=== PATIENT | female | born 1935 | race Caucasian/White ===

== ENCOUNTER 2017-06-10 10:34 | Inpatient (IN) | payer MEDICARE, BC ==
[2017-06-10] MEDS ORDERED: Morphine 4 MG/ML Syringe IVPUSH ONE (11:41)
--- NOTE | 2017-06-10 11:47 | EDM.PDOC ---
ED HPI GENERAL MEDICAL PROBLEM - General Chief Complaint: Back Pain or Injury Stated Complaint: Back Pain Time Seen by Provider: 06/10/17 11:15 Source of Information: Reports: Patient History Limitations: Reports: No Limitations - History of Present Illness INITIAL COMMENTS - FREE TEXT/NARRATIVE: Patient presents with pain all along her spine mostly in the lower back. This has been chronic for about a month and no recent or acute injury. She felt the pain coming up while she was walking out of her bedroom and fearing she would fall, sat down quickly on the floor, kind of slid to the floor along the door. She denies any pain or injury from this. She has been dealing with this pain with several visits to Dr. Zimmer over the past few weeks. He has diagnosed advanced arthritis of the spine with acute exacerbation. She has had SI joint injections and most recently completed a 10-day course of prednisone that she finished 5-6 days ago. She says that really seemed to help but is now worn off. Yesterday she rode with her several hours in the car to a dental appointment with him but felt okay last evening. During the night the pain increased significantly all along her back. She was given morphine 4 mg in the ambulance which reduced pain considerably to about 6/10 which is about her baseline recently. Back Pain Score (Numeric/FACES): 6 - Related Data Allergies Allergy/AdvReac Type Severity Reaction Status Date / Time donepezil HCl [From Aricept] Allergy Nausea and Verified 06/10/17 11:19 Vomiting midazolam HCl [From Versed] Allergy Seizure Verified 06/10/17 11:19 Sulfa (Sulfonamide Allergy Itching Verified 06/10/17 11:19 Antibiotics) tramadol Allergy Itching Verified 06/10/17 11:19 food additive or seasoning Allergy Intermediate Edema Uncoded 06/10/17 11:19 intrascalene injection Allergy Intermediate hard time Uncoded 06/10/17 11:19 waking up Home Meds: Home Meds Calcium Carbonate [Tums] 500 mg PO ASDIRECTED PRN 01/23/15 [History] Calcium Carbonate/Vitamin D3 [Calcium 600 + Vit D 400] 1 tab PO BEDTIME [History] Clobetasol [Clobetasol Propionate 0.05%] 1 applic TOP ASDIRECTED PRN 01/23/15 [ History] Estrogens, Conjugated [Premarin] 0.5 g VAG Q48H 01/23/15 [History] Aspirin [Halfprin] 81 mg PO BRK 11/14/15 [History] Celecoxib 200 mg PO DAILY PRN 11/14/15 [History] Cholecalciferol (Vitamin D3) [Vitamin D3] 2,000 unit PO DAILY 11/14/15 [History] Denosumab [Prolia] 60 mg SUBCUT ASDIRECTED 11/14/15 [History] Past Medical History HEENT History: Reports: Impaired Vision Cardiovascular 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, Syncope Gastrointestinal History: Reports: GERD Genitourinary History: Reports: None Musculoskeletal History: Reports: Osteoarthritis, Osteoporosis Neurological History: Reports: Vertigo - Infectious Disease History Infectious Disease History: Reports: Chicken Pox, Measles, Mumps - Past Surgical History Musculoskeletal Surgical History: Reports: Shoulder Surgery Social & Family History - Family History Family Medical History: Noncontributory - Tobacco Use Smoking Status *Q: Never Smoker Second Hand Smoke Exposure: No - Alcohol Use Days Per Week of Alcohol Use: 0 - Recreational Drug Use Recreational Drug Use: No ED ROS GENERAL - Review of Systems Review Of Systems: See Below Constitutional: Denies: Fever, Chills, Weakness HEENT: Denies: Throat Pain, Vision Change Respiratory: Denies: Shortness of Breath, Cough Cardiovascular: Denies: Chest Pain, Lightheadedness, Syncope GI/Abdominal: Denies: Nausea, Vomiting : Denies: Dysuria Musculoskeletal: Reports: Neck Pain, Back Pain Skin: Denies: Cyanosis, Jaundice, Mottled, Pallor, Diaphoresis Neurological: Denies: Confusion, Dizziness, Headache, Seizure, Syncope Psychiatric: Denies: Agitation, Anxiety, Confusion ED EXAM,LOWER BACK PAIN/INJURY - Physical Exam Exam: See Below Exam Limited By: No Limitations General Appearance: Alert, WD/WN, No Apparent Distress Eye Exam: Bilateral Eye: EOMI, Normal Inspection, PERRL Ears: Normal External Exam, Hearing Grossly Normal Nose: Normal Inspection, No Blood Throat/Mouth: Normal Lips, Normal Voice, No Airway Compromise Head: Atraumatic, Normocephalic Neck: Tender Midline (less than the lumbar spine though) Respiratory/Chest: No Respiratory Distress, Lungs Clear, Normal Breath Sounds, No Accessory Muscle Use Cardiovascular: Regular Rate, Rhythm, No Murmur GI/Abdominal: Normal Bowel Sounds, Soft, No Organomegaly, Tender (Upper quadrants and suprapubic) Back Exam: CVA Tenderness (L), CVA Tenderness (R), Paraspinal Tenderness, Vertebral Tenderness (all along the spine but especially lumbar; non specific) Neurological: Alert, Normal Mood/Affect, Normal Dorsiflexion, Normal Plantar Flexion, No Motor/Sensory Deficits, Oriented x 3, Abnormal Gait (very difficult to walk due to the pain) Psychiatric: Normal Affect, Normal Mood Skin Exam: Warm, Dry, Intact, Normal Color, No Rash Course - Vital Signs Last Recorded V/S: Last Vital Signs Temp 97.6 F 06/10/17 11:09 Pulse 72 06/10/17 11:09 Resp 18 06/10/17 11:09 BP 146/53 H 06/10/17 11:09 Pulse Ox 97 06/10/17 11:09 - Orders/Labs/Meds Orders: Active Orders 24 hr Category Date Time Status UA W/MICROSCOPIC [URIN] Stat Lab 06/10/17 11:32 Uncollected - Re-Assessments/Exams Free Text/Narrative Re-Assessment/Exam: 06/10/17 11:54 I reviewed the notes from Dr. Zimmer and the recent xray reports which show advanced arthritis without acute pathology. The pain is returning so another 4 mg of morphine is given. Free Text/Narrative Re-Assessment/Exam: 06/10/17 12:27 UA shows moderate amounts of leukocyte esterase with only a few bacteria and WBC 's. Will treat for UTI and send urine for culture. Patient is barely able to stand due to the back pain right now. I feel we have no option but to admit for treatment of both the pain and the UTI. I called Jeremi Mayorga NP and left information on his voicemail regarding this case and am waiting for his call back at this point. Discussed findings and treatment plan with patient, her and her son. 06/10/17 12:38 Discussed with Jeremi Topete who will discuss with Dr. Zimmer as he will be seeing her in the hospital. He wants a CRP added to her labs. Patient admitted in stable condition. Departure - Departure Time of Disposition: 12:26 Disposition: Admitted As Inpatient 66 Condition: Good Clinical Impression: UTI (urinary tract infection), uncomplicated, Acute exacerbation of chronic low back pain - Discharge Information Referrals: Anusha Nolan MD [Primary Care Provider] - - My Orders Last 24 Hours: My Active Orders 06/10/17 11:32 UA W/MICROSCOPIC [URIN] Stat - Assessment/Plan Last 24 Hours: My Active Orders 06/10/17 11:32 UA W/MICROSCOPIC [URIN] Stat
[2017-06-10] MEDS ORDERED: Ciprofloxacin in D5W 400 MG in Premix Bag 1 BAG IV ONE ×2 (12:25)
[2017-06-10 13:07] LABS: CHLORIDE,CL 112 mmol/L (98-115); SODIUM,NA 148 mmol/L (136-145)
[2017-06-10] MEDS ORDERED: Sodium Chloride 0.9% 100 ML IV SCH (15:15)
[2017-06-10] MEDS ORDERED: Fludrocortisone 0.1 MG Tab PO PRN (15:53)
[2017-06-10] MEDS ORDERED: Acetaminophen 650 MG Tab.ER PO PRN (15:53)
[2017-06-10] MEDS ORDERED: Clobetasol 0.05% Crm 15 GM Tube TOP PRN (15:53)
[2017-06-10] MEDS ORDERED: Ondansetron 4 MG/2 ML SDV IVPUSH PRN (16:32)
[2017-06-10] MEDS ORDERED: Acetaminophen/HYDROcodone 325-5 MG Tab PO PRN (16:32)
[2017-06-10] MEDS: Morphine 2 MG/ML Syringe IVPUSH PRN (17:00)
[2017-06-10] MEDS ORDERED: traMADol 50 MG Tab PO SCH (21:00)
[2017-06-10] MEDS: Aspirin 81 MG Tab.EC PO SCH (21:16)
[2017-06-10] MEDS: Simvastatin 20 MG Tab PO SCH (21:17)
[2017-06-10] MEDS: Calcium Citrate/Vitamin D3 315 MG-250 Unit Tab PO SCH (21:17)
[2017-06-10] MEDS: Cyclobenzaprine 10 MG Tab PO PRN (21:19)
[2017-06-11] MEDS: Celecoxib 100 MG Cap PO PRN (06:44)
[2017-06-11] MEDS: Cholecalciferol (Vitamin D3) 1,000 Unit Tab PO SCH (08:17)
--- NOTE | 2017-06-11 09:16 | PCM.HP ---
H&P History of Present Illness - General Date of Service: 06/11/17 Source of Information: Patient, EMS Notes Reviewed, Provider - History of Present Illness Initial Comments - Free Text/Narative: 82-year-old female was admitted through the ED with intractable back pain. Patient stated it all happened about one month ago when she got a new puppy and that puppy made her fall in her back. She denies having any back issues and never had pain and always has had a strong back. She states she has been falling at home quite frequently this past month. About 3 weeks ago she did complete a round of oral prednisone 30 mg a day for 2 days titrated dose. 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 She has had SI joint injections. She was given morphine in the ambulance and this did bring her back pain down to 6/10. She states her back pain is usually midline lower lumbar area however she does admit to the pain shooting up into her thoracic spine and into her neck. Yesterday she stated she had some numbness in her right arm. Denies saddle anesthesia, or any urinary/bowel incontinence. She does have some UA symptoms suggestive of urinary tract and symptoms and was treated in the ED however denies flank pain, fever or urinary frequency. Negative CRP Back Pain Score (Numeric/FACES): 8 Right Shoulder Pain Score (Numeric/FACES): 6 Neck Pain Score (Numeric/FACES): 6 - Related Data Allergies/Adverse Reactions: Allergies Allergy/AdvReac Type Severity Reaction Status Date / Time donepezil HCl [From Aricept] Allergy Nausea and Verified 06/10/17 13:10 Vomiting midazolam HCl [From Versed] Allergy Seizure Verified 06/10/17 13:10 Sulfa (Sulfonamide Allergy Itching Verified 06/10/17 13:10 Antibiotics) tramadol Allergy Itching Verified 06/10/17 13:10 food additive or seasoning Allergy Intermediate Edema Uncoded 06/10/17 13:10 intrascalene injection Allergy Intermediate hard time Uncoded 06/10/17 13:10 waking up Home Medications: Home Meds Calcium Carbonate [Tums] 500 mg PO ASDIRECTED PRN 01/23/15 [History] Calcium Carbonate/Vitamin D3 [Calcium 600 + Vit D 400] 1 tab PO BEDTIME [History] Clobetasol [Clobetasol Propionate 0.05%] 1 applic TOP ASDIRECTED PRN 01/23/15 [ History] Aspirin [Halfprin] 81 mg PO BEDTIME 11/14/15 [History] Celecoxib 200 mg PO DAILY PRN 11/14/15 [History] Cholecalciferol (Vitamin D3) [Vitamin D3] 2,000 unit PO DAILY 11/14/15 [History] Denosumab [Prolia] 60 mg SUBCUT ASDIRECTED 11/14/15 [History] Acetaminophen [Acetaminophen ER] 650 mg PO TID PRN 06/10/17 [History] Cyclobenzaprine [Flexeril] 5 mg PO BEDTIME PRN 06/10/17 [History] Estrogens, Conjugated [Premarin Vaginal Crm] 0.5 gm VAG Q48H PRN 06/10/17 [ History] Fludrocortisone [Florinef] 0.1 mg PO DAILY PRN 06/10/17 [History] Simvastatin [Zocor] 40 mg PO BEDTIME 06/10/17 [History] Past Medical History HEENT History: Reports: Impaired Vision Cardiovascular 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, Syncope Gastrointestinal History: Reports: GERD Genitourinary History: Reports: None Other Genitourinary History: dribbles 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: Musculoskeletal History: Reports: Osteoarthritis, Osteoporosis Other Musculoskeletal History: Osteopenia Neurological History: Reports: Vertigo - Infectious Disease History Infectious Disease History: Reports: Chicken Pox, Measles, Mumps - Past Surgical History Head Surgeries/Procedures: Reports: None Musculoskeletal Surgical History: Reports: Shoulder Surgery Social & Family History - Family History Family Medical History: Noncontributory - Tobacco Use Smoking Status *Q: Never Smoker Second Hand Smoke Exposure: No - Caffeine Use Caffeine Use: Reports: Coffee, Soda - Alcohol Use Days Per Week of Alcohol Use: 0 - Recreational Drug Use Recreational Drug Use: No H&P Review of Systems - Review of Systems: Review Of Systems: See Below General: Reports: Decreased Appetite, Weight Loss HEENT: Reports: No Symptoms Pulmonary: Reports: Cough. Denies: Shortness of Breath, Wheezing, Pleuritic Chest Pain Cardiovascular: Reports: Edema (slight swelling left leg. ) Gastrointestinal: Reports: Other (diarrhea often. ) Genitourinary: Reports: Other (on premarin for vaginal itching. ). Denies: Dysuria, Frequency, Hematuria, Retention, Flank Pain Musculoskeletal: Reports: Back Pain Skin: Reports: No Symptoms Psychiatric: Reports: No Symptoms Neurological: Reports: Difficulty Walking, Other (neg saddle anesthesia). Denies: Confusion, Dizziness, Headache, Numbness, Paresthesia Exam - Exam Exam: See Below - Vital Signs Vital Signs: Last Vital Signs Temp 97.9 F 06/11/17 06:44 Pulse 69 06/11/17 06:44 Resp 18 06/11/17 06:44 BP 110/71 06/11/17 06:44 Pulse Ox 97 06/11/17 06:44 Weight: 144 lb 3.2 oz - Exam Quality Assessment: No: Supplemental Oxygen General: Alert, Oriented, 4 HEENT: PERRLA, Hearing Intact, Mucosa Moist & [place], Nares Patent, Normal Nasal Septum, Posterior Pharynx Clear, Conjunctiva Clear, EOMI, EACs Clear, TMs Clear Neck: Supple, Trachea Midline, 2 Lungs: Clear to Auscultation, Normal Respiratory Effort Cardiovascular: Regular Rate, Regular Rhythm GI/Abdominal Exam: Normal Bowel Sounds, Soft, Non-Tender, No Organomegaly, No Distention, No Abnormal Bruit, No Mass, Pelvis Stable (Female) Exam: Deferred Back Exam: No: CVA Tenderness (L), CVA Tenderness (R) Extremities: No Pedal Edema Peripheral Pulses: 2+: Radial (R), Femoral (L) Skin: Warm, Dry, Intact Neurological: Cranial Nerves Intact Neuro Extensive - Mental Status: Alert, Oriented x3, Normal Mood/Affect, Normal Cognition, Other (Neg SLR, Neg dorsiflexion weakness. ) Neuro Extensive - Motor, Sensory, Reflexes: CN II-XII Intact, Normal Gait, Normal Reflexes Psychiatric: Alert, Normal Affect, Normal Mood - Patient Data Result Diagrams: 06/10/17 12:30 06/10/17 12:30 *Q Meaningful Use (ADM) - VTE *Q VTE Criteria *Q: - Stroke *Q Stroke Criteria *Q: - AMI *Q AMI Criteria *Q: Problem List Initiated/Reviewed/Updated: Yes Orders Last 24hrs: Active Orders 24 hr Category Date Time Status Consult to Grade Setter [CONS] Routine Cons 06/10/17 19:18 Active Acetaminophen [Tylenol Arthritis Pain] Med 06/10/17 15:53 Active 650 mg PO TID PRN Acetaminophen/HYDROcodone [[place] 325-5 MG] Med 06/10/17 16:32 Active 1 tab PO Q6H PRN Aspirin [Halfprin] Med 06/10/17 21:00 Active 81 mg PO BEDTIME Calcium Citrate/Vitamin D3 [Calcium Citrate + D] Med 06/10/17 21:00 Active 2 tab PO BEDTIME Celecoxib [CeleBREX] Med 06/10/17 15:53 Active 200 mg PO DAILY PRN Cholecalciferol (Vitamin D3) [Vitamin D3] Med 06/11/17 09:00 Active 2,000 units PO DAILY Clobetasol [Clobetasol Propionate 0.05%] Med 06/10/17 15:53 Active 0 gm TOP DAILY PRN Cyclobenzaprine [Flexeril] Med 06/10/17 15:53 Active 5 mg PO BEDTIME PRN Fludrocortisone [Florinef] Med 06/10/17 15:53 Active 0.1 mg PO DAILY PRN Morphine Med 06/10/17 16:03 Active 2 mg IVPUSH Q3H PRN Ondansetron [Zofran] Med 06/10/17 16:32 Active 4 mg IVPUSH Q6H PRN Simvastatin [Zocor] Med 06/10/17 21:00 Active 40 mg PO BEDTIME Sodium Chloride 0.9% [Normal Saline] 100 ml Med 06/10/17 15:15 Active IV ASDIRECTED Medication Orders Acetaminophen (Tylenol Arthritis Pain) 650 mg PO TID PRN PRN Reason: moderate pain Last Admin: 06/10/17 21:18 Dose: 650 mg Hydrocodone Bitart/Acetaminophen ([place] 325-5 Mg) 1 tab PO Q6H PRN PRN Reason: Pain Aspirin (Halfprin) 81 mg PO BEDTIME GRADY Last Admin: 06/10/17 21:16 Dose: 81 mg Calcium Citrate (Calcium Citrate + D) 2 tab PO BEDTIME GRADY Last Admin: 06/10/17 21:17 Dose: 2 tab Celecoxib (Celebrex) 200 mg PO DAILY PRN PRN Reason: Pain Last Admin: 06/11/17 06:44 Dose: 200 mg Cholecalciferol (Vitamin D3) 2,000 units PO DAILY GRADY Last Admin: 06/11/17 08:17 Dose: 2,000 units Clobetasol Propionate (Clobetasol Propionate 0.05%) 0 gm TOP DAILY PRN PRN Reason: Itching Cyclobenzaprine HCl (Flexeril) 5 mg PO BEDTIME PRN PRN Reason: muscle spasms Last Admin: 06/10/17 21:19 Dose: 5 mg Fludrocortisone Acetate (Florinef) 0.1 mg PO DAILY PRN PRN Reason: dizzy/vertigo Sodium Chloride (Normal Saline) 100 mls @ 20 mls/hr IV ASDIRECTED [facility] Last Admin: 06/10/17 15:20 Dose: 20 mls/hr Morphine Sulfate (Morphine) 2 mg IVPUSH Q3H PRN PRN Reason: back pain Last Admin: 06/10/17 17:00 Dose: 2 mg Ondansetron HCl (Zofran) 4 mg IVPUSH Q6H PRN PRN Reason: Nausea/Vomiting Last Admin: 06/10/17 16:40 Dose: 4 mg Simvastatin (Zocor) 40 mg PO BEDTIME [facility] Last Admin: 06/10/17 21:17 Dose: 40 mg Assessment/Plan Comment:: HISTORY OF PRESENT ILLNESS 82-year-old female was admitted through the ED with intractable back pain. Patient stated it all happened about one month ago when she got a new puppy and that puppy made her fall in her back. She denies having any back issues and never had pain and always has had a strong back. She states she has been falling at home quite frequently this past month. About 3 weeks ago she did complete a round of oral prednisone 30 mg a day for 2 days titrated dose. 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 She has had SI joint injections. She was given morphine in the ambulance and this did bring her back pain down to 6/10. She states her back pain is usually midline lower lumbar area however she does admit to the pain shooting up into her thoracic spine and into her neck. Yesterday she stated she had some numbness in her right arm. Denies saddle anesthesia, or any urinary/bowel incontinence. She does have some UA symptoms suggestive of urinary tract and symptoms and was treated in the ED however denies flank pain, fever or urinary frequency. Negative CRP CODE STATUS, Full Code. Diagnostics Lumbar spine; diffuse lumbar spondylosis, mild to moderate lower thoracic and throughout lumbar CT lumbar spine, spondylosis diffusely throughout the lumbar and lower thoracic spine most prominent at L5-S1, no significant central canal stenosis, moderate facet joint arthropathy, L5-S1, mild facet joint arthropathy lumbar spine, osteoarthritis no acute fracture or compression deformity. No cauda equina evidence. 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 Continue Celebrex, add PPI therapy, change Tylenol to 650 mg every 8 hours scheduled. Can take up to 4 g all sources of acetaminophen. Lidoderm patch to thoracic and NSAID cream to lumbar, limit Flexeril to 5 mg daily at bedtime as recent falling and relative contraindication on [place]ers Criteria. PT consultation to help improve mobility and physical function. Osteoarthritis, Tylenol will be changed to schedule. Add Lidoderm patch, PT consultation. Asymptomatic bacteriuria, no treatment needed. GI prophylaxis, on NSAIDs, add PPI Other chronic medical conditions Osteoporosis, on Prolia, compounding current medical condition, on calcium/ vitamin D, exacerbated by long-term fludrocortisone Hyperlipidemia, Loose stools, likely lactose intolerance, lactose free milk Atrophic vaginitis, Premarin Hyperlipidemia, on statin therapy Venous insufficiency, status post EVLT, Overall plan, medication adjustment, physical therapy consultation, limited morphine,
[2017-06-11] MEDS ORDERED: ESTROGENS CONJUGATED VAG PRN (10:29)
[2017-06-11] MEDS ORDERED: Lidocaine 5% 700 MG Patch TOP SCH ×2 (10:45→11:00)
[2017-06-11] MEDS: Acetaminophen 650 MG Tab.ER PO SCH ×2 (11:30→18:45)
[2017-06-11] MEDS: Omeprazole 20 MG Cap.CR PO SCH (11:32)
[2017-06-11] MEDS: Diclofenac Sodium 1% Gel 100 GM Tube TOP SCH ×2 (14:35→22:06)
[2017-06-11] MEDS: Bisacodyl 5 MG Tab PO PRN (14:51)
[2017-06-11] MEDS: Cyclobenzaprine 10 MG Tab PO PRN (22:07)
[2017-06-11] MEDS: Simvastatin 20 MG Tab PO SCH (22:08)
[2017-06-11] MEDS: Calcium Citrate/Vitamin D3 315 MG-250 Unit Tab PO SCH (22:08)
[2017-06-11] MEDS: Aspirin 81 MG Tab.EC PO SCH (22:08)
[2017-06-11] MEDS: Morphine 2 MG/ML Syringe IVPUSH PRN (22:58)
[2017-06-12] MEDS: Acetaminophen 650 MG Tab.ER PO SCH ×4 (04:18→21:18)
[2017-06-12] MEDS: Bisacodyl 5 MG Tab PO PRN (06:09)
[2017-06-12] MEDS: Celecoxib 100 MG Cap PO PRN (06:09)
[2017-06-12] MEDS: Morphine 2 MG/ML Syringe IVPUSH PRN (06:16)
[2017-06-12] MEDS ORDERED: Magnesium Hydroxide 400 MG/5 ML Susp 30 ML Cup PO PRN (07:27)
[2017-06-12] MEDS: Diclofenac Sodium 1% Gel 100 GM Tube TOP SCH ×3 (08:16→21:18)
[2017-06-12] MEDS: Lidocaine 5% 700 MG Patch TOP SCH (08:16)
[2017-06-12] MEDS: Cholecalciferol (Vitamin D3) 1,000 Unit Tab PO SCH (08:17)
[2017-06-12] MEDS: Omeprazole 20 MG Cap.CR PO SCH (08:17)
[2017-06-12] MEDS ORDERED: Sodium Chloride 0.9% 5 ML Syringe FLUSH PRN (09:41)
--- NOTE | 2017-06-12 09:47 | PCM.PN ---
- General Info Date of Service: 06/12/17 Functional Status: Reports: Pain Controlled, Tolerating Diet. Denies: New Symptoms - Review of Systems General: Reports: Weakness HEENT: Reports: No Symptoms Pulmonary: Reports: No Symptoms Cardiovascular: Reports: No Symptoms Gastrointestinal: Reports: Other (Cannot tolerate morphine). Denies: Difficulty Swallowing Genitourinary: Reports: No Symptoms Musculoskeletal: Reports: Back Pain (Back and thoracic pain much improved from yesterday.) Skin: Reports: No Symptoms Neurological: Denies: Confusion, Numbness, Paresthesia, Syncope, Tingling Psychiatric: Reports: No Symptoms - Patient Data Vitals - Most Recent: Last Vital Signs Temp 97.7 F 06/12/17 06:52 Pulse 66 06/12/17 06:52 Resp 20 06/12/17 06:52 BP 127/72 06/12/17 06:52 Pulse Ox 100 06/12/17 06:52 Weight - Most Recent: 144 lb 3.2 oz I&O - Last 24 Hours: Intake & Output 06/11/17 06/12/17 06/12/17 22:59 06:59 14:59 Intake Total 720 50 Output Total 400 Balance 320 50 Lauri Results Last 24 Hours: Microbiology 06/10/17 13:45 Aerobic Blood Culture - Preliminary Blood - Venous - Lab Draw NO GROWTH AFTER 1 DAY Anaerobic Blood Culture - Preliminary NO GROWTH AFTER 1 DAY Med Orders - Current: Current Medications Acetaminophen (Tylenol Arthritis Pain) 650 mg PO Q8H [facility] Last Admin: 06/12/17 04:18 Dose: Not Given Hydrocodone Bitart/Acetaminophen (Simpson 325-5 Mg) 1 tab PO Q6H PRN PRN Reason: Pain Aspirin (Halfprin) 81 mg PO BEDTIME [facility] Last Admin: 06/11/17 22:08 Dose: 81 mg Bisacodyl (Dulcolax) 5 - 10 mg PO DAILY PRN PRN Reason: Constipation Last Admin: 06/12/17 06:09 Dose: 10 mg Calcium Citrate (Calcium Citrate + D) 2 tab PO BEDTIME [facility] Last Admin: 06/11/17 22:08 Dose: 2 tab Celecoxib (Celebrex) 200 mg PO DAILY PRN PRN Reason: Pain Last Admin: 06/12/17 06:09 Dose: 200 mg Cholecalciferol (Vitamin D3) 2,000 units PO DAILY [facility] Last Admin: 06/12/17 08:17 Dose: 2,000 units Clobetasol Propionate (Clobetasol Propionate 0.05%) 0 gm TOP DAILY PRN PRN Reason: Itching Cyclobenzaprine HCl (Flexeril) 5 mg PO BEDTIME PRN PRN Reason: muscle spasms Last Admin: 06/11/17 22:07 Dose: 5 mg Diclofenac Sodium (Voltaren 1% Gel) 2 gm TOP TID [facility] Last Admin: 06/12/17 08:16 Dose: 1 applic Fludrocortisone Acetate (Florinef) 0.1 mg PO DAILY PRN PRN Reason: dizzy/vertigo Sodium Chloride (Normal Saline) 100 mls @ 20 mls/hr IV ASDIRECTED [facility] Last Admin: 06/10/17 15:20 Dose: 20 mls/hr Lidocaine (Lidoderm 5%) 700 mg TOP DAILY [facility] Last Admin: 06/12/17 08:16 Dose: 700 mg Magnesium Hydroxide (Milk Of Magnesia) 30 ml PO DAILY PRN PRN Reason: Constipation Miscellaneous Information (Remove Patch) 1 ea TRDERM BID [facility] Last Admin: 06/11/17 22:06 Dose: 1 ea Morphine Sulfate (Morphine) 2 mg IVPUSH Q3H PRN PRN Reason: back pain Last Admin: 06/12/17 06:16 Dose: 2 mg Non-Formulary Medication (Estrogens, Conjugated) 0.5 gm VAG Q48H PRN PRN Reason: Other Omeprazole (Omeprazole) 20 mg PO DAILY [facility] Last Admin: 06/12/17 08:17 Dose: 20 mg Ondansetron HCl (Zofran) 4 mg IVPUSH Q6H PRN PRN Reason: Nausea/Vomiting Last Admin: 06/10/17 16:40 Dose: 4 mg Simvastatin (Zocor) 40 mg PO BEDTIME [facility] Last Admin: 06/11/17 22:08 Dose: 40 mg Discontinued Medications Acetaminophen (Tylenol Arthritis Pain) 650 mg PO TID PRN PRN Reason: moderate pain Last Admin: 06/10/17 21:18 Dose: 650 mg Ciprofloxacin/Dextrose 400 mg/ (Premix) 200 mls @ 200 mls/hr IV ONETIME ONE Stop: 06/10/17 13:24 Last Admin: 06/10/17 15:19 Dose: 200 mls/hr Lidocaine (Lidoderm 5%) 700 mg TOP Q24H [facility] Lidocaine (Lidoderm 5%) 700 mg TOP Q24H [facility] Last Admin: 06/11/17 11:30 Dose: 700 mg Morphine Sulfate (Morphine) 4 mg IVPUSH ONETIME ONE Stop: 06/10/17 11:42 Last Admin: 06/10/17 11:47 Dose: 4 mg Tramadol HCl (Ultram) 50 mg PO TID [facility] - Exam Quality Assessment: No: Supplemental Oxygen General: Alert, Oriented Lungs: Clear to Auscultation, Normal Respiratory Effort Cardiovascular: Regular Rate, Regular Rhythm Psy/Mental Status: Alert, Normal Affect, Normal Mood - Problem List Review Problem List Initiated/Reviewed/Updated: Yes - My Orders Last 24 Hours: My Active Orders 06/11/17 10:29 Estrogens, Conjugated 0.5 gm VAG Q48H PRN 06/11/17 10:30 Acetaminophen [Tylenol Arthritis Pain] 650 mg PO Q8H 06/11/17 10:38 Resuscitation Status Routine 06/11/17 10:52 Consult to Physical Therapy [PT Evaluation and Treatment] [CONS] Routine 06/11/17 11:00 Omeprazole 20 mg PO DAILY 06/11/17 14:00 Diclofenac Sodium [Voltaren 1% Gel] 2 gm TOP TID 06/12/17 09:00 Lidocaine 5% [Lidoderm 5%] 700 mg TOP DAILY - Plan Plan:: HISTORY OF PRESENT ILLNESS 82-year-old female was admitted through the ED with intractable back pain. Patient stated it all happened about one month ago when she got a new puppy and that puppy made her fall in her back. She denies having any back issues and never had pain and always has had a strong back. She states she has been falling at home quite frequently this past month. About 3 weeks ago she did complete a round of oral prednisone 30 mg a day for 2 days titrated dose. 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 She has had SI joint injections. She was given morphine in the ambulance and this did bring her back pain down to 6/10. She states her back pain is usually midline lower lumbar area however she does admit to the pain shooting up into her thoracic spine and into her neck. Yesterday she stated she had some numbness in her right arm. Denies saddle anesthesia, or any urinary/bowel incontinence. She does have some UA symptoms suggestive of urinary tract and symptoms and was treated in the ED however denies flank pain, fever or urinary frequency. Negative CRP CODE STATUS, Full Code. Diagnostics Lumbar spine; diffuse lumbar spondylosis, mild to moderate lower thoracic and throughout lumbar CT lumbar spine, spondylosis diffusely throughout the lumbar and lower thoracic spine most prominent at L5-S1, no significant central canal stenosis, moderate facet joint arthropathy, L5-S1, mild facet joint arthropathy lumbar spine, osteoarthritis no acute fracture or compression deformity. No cauda equina evidence. Update, patient pain much more tolerable and she is more functional since started on scheduled CR Tylenol, nonsteroidal cream, and Lidoderm patch. 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 Change Celebrex to scheduled with food and PPI. Continue with scheduled CR Tylenol 650 every 8 hours. Can take up to 4 g all sources of acetaminophen. Lidoderm patch to thoracic and NSAID cream to lumbar, limit Flexeril to 5 mg daily at bedtime as recent falling and relative contraindication on Beers Criteria. PT consultation was placed however they have not seen the patient as of today, help improve mobility and physical function, plan is for discharge to home with home health care. Osteoarthritis, diffuse, Asymptomatic bacteriuria, no treatment GI prophylaxis, on NSAIDs, added PPI Other chronic medical conditions Osteoporosis, on Prolia, compounding current medical condition, on calcium/ vitamin D, exacerbated by long-term fludrocortisone Hyperlipidemia, on statin therapy Loose stools, likely lactose intolerance, lactose free milk Atrophic vaginitis, Premarin Venous insufficiency, status post EVLT, Disposition; will keep today to assess functional status and pain management results, change Celebrex to schedule, discontinue morphine/hydrocodone, physical therapy consultation, plan is for her to be discharged with home health.
[2017-06-12] MEDS ORDERED: Cyclobenzaprine 5 MG Tab PO PRN (21:00)
[2017-06-12] MEDS: Calcium Citrate/Vitamin D3 315 MG-250 Unit Tab PO SCH (21:18)
[2017-06-12] MEDS: Aspirin 81 MG Tab.EC PO SCH (21:18)
[2017-06-12] MEDS: Simvastatin 20 MG Tab PO SCH (21:19)
[2017-06-13 07:12] VITALS: BP 135/75
[2017-06-13] MEDS: Cholecalciferol (Vitamin D3) 1,000 Unit Tab PO SCH (09:00)
[2017-06-13] MEDS: Acetaminophen 650 MG Tab.ER PO SCH (09:00)
[2017-06-13] MEDS: Omeprazole 20 MG Cap.CR PO SCH (09:00)
[2017-06-13] MEDS ORDERED: Celecoxib 100 MG Cap PO SCH (09:00)
[2017-06-13] MEDS: Lidocaine 5% 700 MG Patch TOP SCH (09:01)
[2017-06-13] MEDS: Diclofenac Sodium 1% Gel 100 GM Tube TOP SCH (09:02)
--- NOTE | 2017-06-13 10:21 | PCM.DCSUM1 ---
Discharge Summary - Hospital Course Brief History: 82-year-old female was admitted through the ED with intractable back pain. Symptoms began one month ago when she got a new puppy and that puppy made her fall in her back. No recent history of having any back issues and never had pain and always has had a strong back. Recently she has been falling at home quite frequently during this past month. About 3 weeks ago she completed prednisone 30 mg a day for 2 days of titrating doses. 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 She has had SI joint injections. She was given morphine in the ambulance and this did improve her back pain to 6/10. She states her back pain is usually midline lower lumbar area however she does admit to the pain shooting up into her thoracic spine and into her neck. Yesterday she stated she had some numbness in her right arm. Denies saddle anesthesia, or any urinary/ bowel incontinence. She does have some UA symptoms suggestive of urinary tract and symptoms and was treated in the ED however denies flank pain, fever or urinary frequency. Negative CRP - Discharge Data Discharge Date: 06/13/17 Discharge Disposition: Home, W Home Health Agency 06 Condition: Good - Patient Summary/Data Complications: None Consults: Consultations 06/10/17 19:18 Consult to Tiler [CONS] Routine 06/11/17 10:52 Consult to Physical Therapy [PT Evaluation and Treatment] [CONS] Routine Hospital Course: Patient's hospital course went quite well. She did not have any adverse reactions or side effects to any medications and/or treatments. She never became hemodynamically unstable. Many medications were adjusted such as Tylenol was changed to Tylenol arthritis scheduled. Discontinued hydrocodone as this did make her slightly nauseated however a PPI was added with continued with Celebrex scheduled. She was given a Lidoderm patch to her thoracic area along with nonsteroidal cream to her lumbar which did seem to improve her functional status. She never had signs and symptoms of impingement. She was evaluated by physical therapy and has qualified for home health with home PT. She never had any bladder or bowel dysfunction. - Patient Instructions Diet: Regular Diet as Tolerated Activity: As Tolerated Showering/Bathing: May Shower Notify Provider of: Increased Pain, Nausea and/or Vomiting - Discharge Plan Prescriptions/Med Rec: Acetaminophen [Tylenol Arthritis Pain] 650 mg PO TID #90 tab.er Diclofenac Sodium [Voltaren 1% Gel] 2 gm TOP TID #2 tube Omeprazole 20 mg PO DAILY #30 cap.cr Home Medications: Home Meds Calcium Carbonate [Tums] 500 mg PO ASDIRECTED PRN 01/23/15 [History] Calcium Carbonate/Vitamin D3 [Calcium 600 + Vit D 400] 1 tab PO BEDTIME [History] Clobetasol [Temovate 0.05% Crm] 1 applic TOP ASDIRECTED PRN 01/23/15 [History] Aspirin [Halfprin] 81 mg PO BEDTIME 11/14/15 [History] Cholecalciferol (Vitamin D3) [Vitamin D3] 2,000 unit PO DAILY 11/14/15 [History] Denosumab [Prolia] 60 mg SUBCUT ASDIRECTED 11/14/15 [History] Cyclobenzaprine [Flexeril] 5 mg PO BEDTIME PRN 06/10/17 [History] Estrogens, Conjugated [Premarin Vaginal Crm] 0.5 gm VAG Q48H PRN 06/10/17 [ History] Fludrocortisone [Florinef] 0.1 mg PO DAILY PRN 06/10/17 [History] Simvastatin [Zocor] 40 mg PO BEDTIME 06/10/17 [History] Acetaminophen [Tylenol Arthritis Pain] 650 mg PO TID #90 tab.er 06/13/17 [Rx] Celecoxib 200 mg PO DAILY #30 06/13/17 [Rx] Diclofenac Sodium [Voltaren 1% Gel] 2 gm TOP TID #2 tube 06/13/17 [Rx] Omeprazole 20 mg PO DAILY #30 cap.cr 06/13/17 [Rx] Forms: ED Department Discharge Referrals: [facility] [Outside] - Discharge Summary/Plan Comment DC Time >30 min.: Yes Discharge Summary/Plan Comment: Discharge diagnoses Degenerative joint disease, 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 Please assist patient in developing in home therapy for pain control in relation to back pain, recent falls in the home setting and to establish strength and endurance for home safety. Patient is homebound due to limited decreased strength/endurance as a result of recent back pain exacerbation and falls within the home setting. She also has an unsteady gait. Patient has been scheduled for a facet joint injection on June 19 at the [facility] in [place]. - General Info Date of Service: 06/13/17 - Review of Systems General: Denies: Fever, Chills HEENT: Reports: Other (Complains of ears being itchy when wearing hearing aids for too long) Pulmonary: Denies: Shortness of Breath Cardiovascular: Denies: Chest Pain Gastrointestinal: Reports: Other (Chronic loose stools) Musculoskeletal: Reports: Back Pain. Denies: Leg Pain Neurological: Reports: Gait Disturbance (Uses a walker for ambulation) - Patient Data Vitals - Most Recent: Last Vital Signs Temp 97.9 F 06/13/17 07:00 Pulse 81 06/13/17 07:00 Resp 20 06/13/17 07:00 BP 135/75 06/13/17 07:00 Pulse Ox 96 06/13/17 07:00 Weight - Most Recent: 144 lb 3.2 oz I&O - Last 24 hours: Intake & Output 06/12/17 06/13/17 06/13/17 22:59 06:59 14:59 Intake Total 880 50 Output Total 800 300 Balance 80 -250 CHARLY Results - Last 24 hrs: Microbiology 06/10/17 13:45 Aerobic Blood Culture - Preliminary Blood - Venous - Lab Draw NO GROWTH AFTER 2 DAYS Anaerobic Blood Culture - Preliminary NO GROWTH AFTER 2 DAYS Med Orders - Current: Current Medications Acetaminophen (Tylenol Arthritis Pain) 650 mg PO TID [facility] Last Admin: 06/13/17 09:00 Dose: 650 mg Hydrocodone Bitart/Acetaminophen (Moro 325-5 Mg) 1 tab PO Q6H PRN PRN Reason: Pain Aspirin (Halfprin) 81 mg PO BEDTIME [facility] Last Admin: 06/12/17 21:18 Dose: 81 mg Bisacodyl (Dulcolax) 5 - 10 mg PO DAILY PRN PRN Reason: Constipation Last Admin: 06/12/17 06:09 Dose: 10 mg Calcium Citrate (Calcium Citrate + D) 2 tab PO BEDTIME [facility] Last Admin: 06/12/17 21:18 Dose: 2 tab Celecoxib (Celebrex) 200 mg PO DAILY [facility] Last Admin: 06/13/17 09:01 Dose: 200 mg Cholecalciferol (Vitamin D3) 2,000 units PO DAILY [facility] Last Admin: 06/13/17 09:00 Dose: 2,000 units Clobetasol Propionate (Clobetasol Propionate 0.05%) 0 gm TOP DAILY PRN PRN Reason: Itching Cyclobenzaprine HCl (Flexeril) 5 mg PO BEDTIME PRN PRN Reason: muscle spasms Last Admin: 06/12/17 21:21 Dose: 5 mg Diclofenac Sodium (Voltaren 1% Gel) 2 gm TOP TID [facility] Last Admin: 06/13/17 09:02 Dose: 1 applic Fludrocortisone Acetate (Florinef) 0.1 mg PO DAILY PRN PRN Reason: dizzy/vertigo Lidocaine (Lidoderm 5%) 700 mg TOP DAILY [facility] Last Admin: 06/13/17 09:01 Dose: 700 mg Magnesium Hydroxide (Milk Of Magnesia) 30 ml PO DAILY PRN PRN Reason: Constipation Miscellaneous Information (Remove Patch) 1 ea TRDERM BEDTIME [facility] Last Admin: 06/12/17 21:17 Dose: 1 ea Omeprazole (Omeprazole) 20 mg PO DAILY [facility] Last Admin: 06/13/17 09:00 Dose: 20 mg Ondansetron HCl (Zofran) 4 mg IVPUSH Q6H PRN PRN Reason: Nausea/Vomiting Last Admin: 06/10/17 16:40 Dose: 4 mg Simvastatin (Zocor) 40 mg PO BEDTIME [facility] Last Admin: 06/12/17 21:19 Dose: 40 mg Sodium Chloride (Syrex Flush) 5 ml FLUSH Q8HR PRN PRN Reason: Keep Vein Open Discontinued Medications Acetaminophen (Tylenol Arthritis Pain) 650 mg PO TID PRN PRN Reason: moderate pain Last Admin: 06/10/17 21:18 Dose: 650 mg Acetaminophen (Tylenol Arthritis Pain) 650 mg PO Q8H [facility] Last Admin: 06/12/17 04:18 Dose: Not Given Celecoxib (Celebrex) 200 mg PO DAILY PRN PRN Reason: Pain Last Admin: 06/12/17 06:09 Dose: 200 mg Cyclobenzaprine HCl (Flexeril) 5 mg PO BEDTIME PRN PRN Reason: muscle spasms Last Admin: 06/11/17 22:07 Dose: 5 mg Ciprofloxacin/Dextrose 400 mg/ (Premix) 200 mls @ 200 mls/hr IV ONETIME ONE Stop: 06/10/17 13:24 Last Admin: 06/10/17 15:19 Dose: 200 mls/hr Sodium Chloride (Normal Saline) 100 mls @ 20 mls/hr IV ASDIRECTED ON [facility] Last Admin: 06/10/17 15:20 Dose: 20 mls/hr Lidocaine (Lidoderm 5%) 700 mg TOP Q24H [facility] Lidocaine (Lidoderm 5%) 700 mg TOP Q24H [facility] Last Admin: 06/11/17 11:30 Dose: 700 mg Miscellaneous Information (Remove Patch) 1 ea TRDERM BID [facility] Last Admin: 06/12/17 09:52 Dose: Not Given Morphine Sulfate (Morphine) 4 mg IVPUSH ONETIME ONE Stop: 06/10/17 11:42 Last Admin: 06/10/17 11:47 Dose: 4 mg Morphine Sulfate (Morphine) 2 mg IVPUSH Q3H PRN PRN Reason: back pain Last Admin: 06/12/17 06:16 Dose: 2 mg Tramadol HCl (Ultram) 50 mg PO TID ON [facility] OF [facility] - Exam General: Reports: Alert, Oriented Lungs: Reports: Clear to Auscultation, Normal Respiratory Effort Cardiovascular: Reports: Regular Rate, Regular Rhythm Extremities: No: No Pedal Edema Neurological: Reports: Other (SLR slightly positive right side. Negative dorsiflexion weakness.) *Q Meaningful Use (DIS) - VTE *Q VTE Criteria *Q: - Stroke *Q Stroke Criteria *Q: - AMI *Q AMI Criteria *Q:
== END 2017-06-13 13:10 | disposition home health service (06) | DRG 552 ==
LOC: KA.ED 10:34 → KA.MS 12:45
PROVIDERS: ADMIT Physician Assistant Surgical; ATTEND Family Medicine
DX: M54.9 Dorsalgia, unspecified (principal); N39.0 Urinary tract infection, site not specified; M47.9 Spondylosis, unspecified; R82.71 Bacteriuria; E78.5 Hyperlipidemia, unspecified; N95.2 Postmenopausal atrophic vaginitis; I87.2 Venous insufficiency (chronic) (peripheral); Z91.81 History of falling; Z79.899 Other long term (current) drug therapy; Z79.82 Long term (current) use of aspirin; Z88.2 Allergy status to sulfonamides; Z88.8 Allergy status to other drugs, medicaments and biological substances; Z95.0 Presence of cardiac pacemaker
CPT/HCPCS: 36415; 80048; 81001; 85025; 85651; 86140; 87040; 87086; 96374; 99284; 99285; J2270; 72100; 72131; 97162-GP; A9270-GY; J0744; J2405; J7050

== ENCOUNTER 2017-07-01 09:51 | Day surgery (SDC) | payer MEDICARE, BC ==
[2017-07-01] MEDS ORDERED: Gatifloxacin 0.5% Ophth Soln 2.5 ML Bot EYERT SCH (09:55)
[2017-07-01] MEDS ORDERED: Sodium Chloride 0.9% 5 ML Syringe FLUSH PRN (09:55)
[2017-07-01] MEDS ORDERED: Lactated Ringers 1,000 ML IV SCH (09:55)
[2017-07-01] MEDS: Phenylephrine 10% Ophth Soln 5 ML Bot EYERT SCH ×3 (10:20→11:06)
[2017-07-01] MEDS: Cyclopentolate 1% Opth Soln 2 ML Bottle EYERT SCH ×3 (10:38→11:16)
[2017-07-01] MEDS ORDERED: Balanced Salt Solution Plus Ophth Irrig 500 ML Bottle IOCULAR ONE (12:48)
[2017-07-01] MEDS ORDERED: Water For Irrigation,Sterile 1,500 ML Container IRR ONE (12:48)
[2017-07-01] MEDS ORDERED: Balanced Salt Solution Ophth Irrig 15 ML Bottle EYERT ONE (12:48)
[2017-07-01] MEDS ORDERED: Tetracaine 0.5% 2 ML Bottle EYEBOTH ONE (12:49)
[2017-07-01] MEDS ORDERED: Carbachol 0.01% Intraocular 1.5 ML Vial EYERT ONE (12:49)
[2017-07-01] MEDS ORDERED: EPINEPHrine 1 MG/ML SDV ONE (12:49)
[2017-07-01] MEDS ORDERED: Lidocaine 1% 10 ML MDV INJECT ONE (12:50)
[2017-07-01] MEDS ORDERED: Lidocaine 2% with EPINEPHrine 1:100,000 20 ML MDV INJECT ONE (12:50)
[2017-07-01] MEDS ORDERED: Dexamethasone/Neomycin/Polymyxin B Ophth Oint 3.5 GM Tube EYERT ONE (12:50)
[2017-07-01] MEDS ORDERED: Hyaluronate Sodium 1% 0.85 ML Syringe IOCULAR ONE (12:51)
[2017-07-01 13:20] VITALS: BP 156/79
--- NOTE | 2017-07-02 09:51 | OR ---
DATE OF SURGERY: 07/01/2017 SURGEON: Kirby Hill MD PREOPERATIVE DIAGNOSIS: Cataract, right eye. POSTOPERATIVE DIAGNOSIS: Cataract, right eye. OPERATION PERFORMED: Phacoemulsification with posterior chamber lens insertion, right eye. FINDINGS: The patient was taken to the operating room where appropriate anesthesia, sedation and monitoring were provided. A retrobulbar block was given on the right side. The eye was massaged and was found to be appropriately soft. The eye and eyelids were then prepped and draped in the usual sterile manner. A lid speculum was placed. A micro sharp blade was used to enter the anterior chamber inside the limbus superior-temporally. Xylocaine was irrigated into the eye at this site. Healon was irrigated into the eye through this site. Then using a 2.85 mm corneal blade an entry was made into the anterior chamber just inside the limbus temporally. Healon was again irrigated into the eye. Then using a cystitome, the anterior capsulorrhexis was created. The lens nucleus was hydrodissected using a 27 gauge cannula and balanced salt solution. The phacoemulsification unit was introduced through the temporal site and the Armaan spatula through the superior temporal site. In so doing, the lens nucleus was phacoemulsified. The cortical fragments of the lens were removed using the irrigation aspiration unit. The posterior capsule was polished. Healon was irrigated into the eye. The posterior chamber lens was inserted and rotated into position inside the capsular bag. The Healon was irrigated out of the eye. Miostat was irrigated into the eye and the pupil rounded nicely. A single interrupted 10-0 Nylon suture was placed through the temporal corneal incision site. Balanced salt solution was irrigated into the eye. The wound was tested and found to be tight. Maxitrol ointment was placed into the patient's right eye. The eyelids were closed and an eye patch and mitchell shield were placed. The patient left the operating room in good condition. /[id number]/MODL
== END 2017-07-01 13:49 | disposition home or self-care (01) ==
LOC: KA.SDS 09:51
PROVIDERS: ATTEND Ophthalmology
DX: H53.8 Other visual disturbances (principal); E78.2 Mixed hyperlipidemia; Z95.1 Presence of aortocoronary bypass graft; Z90.49 Acquired absence of other specified parts of digestive tract; Z98.890 Other specified postprocedural states; Z79.899 Other long term (current) drug therapy; Z79.82 Long term (current) use of aspirin; Z88.8 Allergy status to other drugs, medicaments and biological substances; Z88.2 Allergy status to sulfonamides
CPT/HCPCS: 66984; A9270; J0171; J7120; 00142; V2632

== ENCOUNTER 2017-08-05 08:54 | Day surgery (SDC) | payer MEDICARE, BC ==
[2017-08-05] MEDS ORDERED: Lactated Ringers 1,000 ML IV SCH (09:00)
[2017-08-05] MEDS ORDERED: Sodium Chloride 0.9% 5 ML Syringe FLUSH PRN (09:00)
[2017-08-05] MEDS ORDERED: Gatifloxacin 0.5% Ophth Soln 2.5 ML Bot EYELF SCH (09:00)
[2017-08-05] MEDS: Phenylephrine 10% Ophth Soln 5 ML Bot EYELF SCH ×3 (09:10→09:35)
[2017-08-05] MEDS: Cyclopentolate 1% Opth Soln 2 ML Bottle EYELF SCH ×3 (09:15→09:40)
[2017-08-05] MEDS ORDERED: Water For Irrigation,Sterile 1,500 ML Container IRR ONE (10:50)
[2017-08-05] MEDS ORDERED: EPINEPHrine 1 MG/ML SDV ONE (10:51)
[2017-08-05] MEDS ORDERED: Balanced Salt Solution Ophth Irrig 15 ML Bottle EYELF ONE (10:51)
[2017-08-05] MEDS ORDERED: Carbachol 0.01% Intraocular 1.5 ML Vial EYELF ONE (10:51)
[2017-08-05] MEDS ORDERED: Balanced Salt Solution Plus Ophth Irrig 500 ML Bottle IOCULAR ONE (10:51)
[2017-08-05] MEDS ORDERED: Lidocaine 2% with EPINEPHrine 1:100,000 20 ML MDV INJECT ONE (10:52)
[2017-08-05] MEDS ORDERED: Dexamethasone/Neomycin/Polymyxin B Ophth Oint 3.5 GM Tube EYELF ONE (10:52)
[2017-08-05] MEDS ORDERED: Lidocaine 1% 10 ML MDV INFILT ONE (10:52)
[2017-08-05] MEDS ORDERED: Hyaluronate Sodium 1% 0.85 ML Syringe IOCULAR ONE (10:53)
[2017-08-05 12:01] VITALS: BP 160/62
--- NOTE | 2017-08-06 08:24 | OR ---
DATE OF SURGERY: 08/05/2017 SURGEON: Kirby Hill MD PREOPERATIVE DIAGNOSIS: Cataract, left eye. POSTOPERATIVE DIAGNOSIS: Cataract, left eye. OPERATION PERFORMED: Phacoemulsification with posterior chamber lens insertion, left eye. FINDINGS: The patient was taken to the operating room where appropriate anesthesia, sedation and monitoring were provided. A retrobulbar block was given on the left side. The eye was massaged and was found to be appropriately soft. The eye and eyelids were then prepped and draped in the usual sterile manner. A lid speculum was placed. A micro sharp blade was used to enter the anterior chamber inside the limbus inferior-temporally. Xylocaine was irrigated into the eye at this site. Healon was irrigated into the eye through this site. Then using a 2.85 mm corneal blade an entry was made into the anterior chamber just inside the limbus temporally. Healon was again irrigated into the eye. Then using a cystitome, the anterior capsulorrhexis was created. The lens nucleus was hydrodissected using a 27 gauge cannula and balanced salt solution. The phacoemulsification unit was introduced through the temporal site and the Armaan spatula through the inferior temporal site. In so doing, the lens nucleus was phacoemulsified. The cortical fragments of the lens were removed using the irrigation aspiration unit. The posterior capsule was polished. Healon was irrigated into the eye. The posterior chamber lens was inserted and rotated into position inside the capsular bag. The Healon was irrigated out of the eye. Miostat was irrigated into the eye and the pupil rounded nicely. A single interrupted 10-0 Nylon suture was placed through the temporal corneal incision site. Balanced salt solution was irrigated into the eye. The wound was tested and found to be tight. Maxitrol ointment was placed into the patient's left eye. The eyelids were closed and an eye patch and mitchell shield were placed. The patient left the operating room in good condition. /[id number]/MODL
== END 2017-08-05 11:45 | disposition home or self-care (01) ==
LOC: KA.SDS 08:54
PROVIDERS: ATTEND Ophthalmology
DX: H25.812 Combined forms of age-related cataract, left eye (principal); K21.9 Gastro-esophageal reflux disease without esophagitis; F17.210 Nicotine dependence, cigarettes, uncomplicated; I49.5 Sick sinus syndrome; H81.09 Meniere's disease, unspecified ear; H81.10 Benign paroxysmal vertigo, unspecified ear; G89.29 Other chronic pain; M54.5 Low back pain; M81.0 Age-related osteoporosis without current pathological fracture; Z79.899 Other long term (current) drug therapy; Z79.82 Long term (current) use of aspirin; Z88.5 Allergy status to narcotic agent; Z88.2 Allergy status to sulfonamides; Z88.8 Allergy status to other drugs, medicaments and biological substances; Z95.5 Presence of coronary angioplasty implant and graft; Z95.0 Presence of cardiac pacemaker; Z98.890 Other specified postprocedural states
CPT/HCPCS: 00142; 66984; A9270; J0171; J7120; V2632

== ENCOUNTER 2017-09-20 15:28 | Emergency (ER) | payer MEDICARE, BC ==
[2017-09-20 15:44] VITALS: BP 136/64
--- NOTE | 2017-09-20 15:59 | EDM.PDOC ---
ED HPI GENERAL MEDICAL PROBLEM - General Chief Complaint: General Stated Complaint: RIGHT SIDED RIB PAIN Time Seen by Provider: 09/20/17 15:30 Source of Information: Reports: Patient History Limitations: Reports: No Limitations - History of Present Illness INITIAL COMMENTS - FREE TEXT/NARRATIVE: 82 YO WF presents to ER with right sided posterior rib pain from a fall 3 days ago. Pt reports she was walking up her stairs and tripped forward landing on her right side. Pt states she was doing fine with her pain and breathing until last night when it became more severe. Pt denies any chest pain or difficulty breathing at this time. Pt denies any head injury or neck pain. Pt denies any loss of consciousness from her fall Onset Date: 09/18/17 Duration: Day(s): Location: Reports: Chest Quality: Reports: Ache Severity: Mild Improves with: Reports: Rest Worsens with: Reports: Movement Associated Symptoms: Reports: Shortness of Breath. Denies: Chest Pain, Cough, cough w sputum, Diaphoresis, Fever/Chills, Nausea/Vomiting, Syncope, Weakness - Related Data Allergies Allergy/AdvReac Type Severity Reaction Status Date / Time donepezil HCl [From Aricept] Allergy Nausea and Verified 08/05/17 09:22 Vomiting midazolam HCl [From Versed] Allergy Seizure Verified 08/05/17 09:22 Sulfa (Sulfonamide Allergy Itching Verified 08/05/17 09:22 Antibiotics) tramadol Allergy Itching Verified 08/05/17 09:22 food additive or seasoning Allergy Intermediate Edema Uncoded 07/01/17 10:16 intrascalene injection Allergy Intermediate hard time Uncoded 07/01/17 10:16 waking up Home Meds: Home Meds Calcium Carbonate [Tums] 500 mg PO ASDIRECTED PRN 01/23/15 [History] Calcium Carbonate/Vitamin D3 [Calcium 600 + Vit D 400] 1 tab PO BEDTIME [History] Clobetasol [Temovate 0.05% Crm] 1 applic TOP ASDIRECTED PRN 01/23/15 [History] Aspirin [Halfprin] 81 mg PO BEDTIME 11/14/15 [History] Cholecalciferol (Vitamin D3) [Vitamin D3] 3,000 unit PO DAILY 11/14/15 [History] Estrogens, Conjugated [Premarin Vaginal Crm] 0.5 gm VAG Q48H PRN 06/10/17 [ History] Simvastatin [Zocor] 40 mg PO BEDTIME 06/10/17 [History] Acetaminophen [Tylenol Arthritis Pain] 650 mg PO TID #90 tab.er 06/13/17 [Rx] Celecoxib 200 mg PO DAILY #30 06/13/17 [Rx] Diclofenac Sodium [Voltaren 1% Gel] 2 gm TOP TID #2 tube 06/13/17 [Rx] Omeprazole 20 mg PO DAILY #30 cap.cr 06/13/17 [Rx] Nystatin/Triamcinolone Crm [Mycolog Crm] 15 gm TOP BID PRN 06/30/17 [History] Hydrocodone/Acetaminophen [Hydrocodon-Acetaminophen 5-325] 1 each PO Q6HR PRN # 10 tablet 09/20/17 [Rx] Past Medical History HEENT History: Reports: Cataract, Impaired Vision Cardiovascular 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, Syncope Gastrointestinal History: Reports: GERD Genitourinary History: Reports: None Other Genitourinary History: dribbles [employer]ATE History: Reports: Musculoskeletal History: Reports: Arthritis, Osteoarthritis, Osteoporosis Other Musculoskeletal History: Osteopenia, lumbar spinalosis Neurological History: Reports: Vertigo Hematologic History: Reports: Blood Transfusion(s) - Infectious Disease History Infectious Disease History: Reports: Chicken Pox, Measles, Mumps - Past Surgical History Head Surgeries/Procedures: Reports: None HEENT Surgical History: Reports: Cataract Surgery Cardiovascular Surgical History: Reports: None GI Surgical History: Reports: None Female Surgical History: Reports: None Neurological Surgical History: Reports: Other (See Below) Other Neurological Surgeries/Procedures: Coritisone injection to lumbar. Musculoskeletal Surgical History: Reports: Shoulder Surgery Social & Family History - Family History Family Medical History: Noncontributory - Tobacco Use Smoking Status *Q: Never Smoker Second Hand Smoke Exposure: No - Caffeine Use Caffeine Use: Reports: Coffee, Soda - Alcohol Use Days Per Week of Alcohol Use: 0 - Recreational Drug Use Recreational Drug Use: No ED ROS GENERAL - Review of Systems Review Of Systems: See Below Constitutional: Reports: No Symptoms HEENT: Reports: No Symptoms Respiratory: Reports: No Symptoms Cardiovascular: Reports: No Symptoms Endocrine: Reports: No Symptoms GI/Abdominal: Reports: No Symptoms : Reports: No Symptoms Musculoskeletal: Reports: No Symptoms Skin: Reports: No Symptoms Neurological: Reports: No Symptoms Psychiatric: Reports: No Symptoms Hematologic/Lymphatic: Reports: No Symptoms Immunologic: Reports: No Symptoms ED EXAM, GENERAL - Physical Exam Exam: See Below Exam Limited By: No Limitations General Appearance: Alert, WD/WN, No Apparent Distress Throat/Mouth: Normal Inspection, Normal Lips, Normal Teeth, Normal Gums, Normal Oropharynx, Normal Voice, No Airway Compromise Head: Atraumatic, Normocephalic Neck: Normal Inspection, Supple, Non-Tender, Full Range of Motion Respiratory/Chest: No Respiratory Distress, Lungs Clear, Normal Breath Sounds, No Accessory Muscle Use, Chest Non-Tender Cardiovascular: Normal Peripheral Pulses, Regular Rate, Rhythm, No Edema, No Gallop, No JVD, No Murmur, No Rub GI/Abdominal: Normal Bowel Sounds, Soft, Non-Tender, No Organomegaly, No Distention, No Abnormal Bruit, No Mass Back Exam: Normal Inspection, Full Range of Motion, CVA Tenderness (R) Extremities: Normal Inspection, Normal Range of Motion, Non-Tender, Normal Capillary Refill, No Pedal Edema Neurological: Alert, Oriented, CN II-XII Intact, Normal Cognition, Normal Gait, Normal Reflexes, No Motor/Sensory Deficits Psychiatric: Normal Affect, Normal Mood Skin Exam: Warm, Dry, Intact, Normal Color, No Rash Lymphatic: No Adenopathy Course - Vital Signs Last Recorded V/S: Last Vital Signs Temp 36.9 C 09/20/17 15:42 Pulse 89 09/20/17 15:42 Resp 16 09/20/17 15:42 BP 136/64 09/20/17 15:42 Pulse Ox 99 09/20/17 15:42 - Orders/Labs/Meds Orders: Active Orders 24 hr Category Date Time Status Ribs 2V w Chest Rt [CR] Stat Exams 09/20/17 15:31 Ordered - Radiology Interpretation Free Text/Narrative:: right Rib series with AP chest- right posterior 12th rib fracture Departure - Departure Time of Disposition: 16:02 Disposition: Home, Self-Care 01 Condition: Good Clinical Impression: Rib fracture Qualifiers: Encounter type: initial encounter Rib fracture type: single rib Fracture type: closed Laterality: right Qualified Code(s): S22.31XA - Fracture of one rib, right side, initial encounter for closed fracture - Discharge Information Prescriptions: Hydrocodone/Acetaminophen [Hydrocodon-Acetaminophen 5-325] 1 each PO Q6HR PRN # 10 tablet PRN Reason: Pain Instructions: Rib Fracture Referrals: Karrie Nolan MD [Primary Care Provider] - - My Orders Last 24 Hours: My Active Orders 09/20/17 15:31 Ribs 2V w Chest Rt [CR] Stat - Assessment/Plan Last 24 Hours: My Active Orders 09/20/17 15:31 Ribs 2V w Chest Rt [CR] Stat Assessment:: 1. rib fracture 2. trip and fall Plan: 1. hydrocodone 5/325 #15 sig 1 PO Q6 PRN pain 2. incentive spirometer 3. follow up with PCP next week for further evaluation and recheck 4. return to ER for worsening symptoms
[2017-09-20] MEDS ORDERED: Acetaminophen/HYDROcodone 325-5 MG Tab PO PRN (16:06)
== END 2017-09-20 16:25 | disposition home or self-care (01) ==
LOC: KA.ED 15:28
DX: S22.31XA Fracture of one rib, right side, initial encounter for closed fracture (principal); K21.9 Gastro-esophageal reflux disease without esophagitis; M19.90 Unspecified osteoarthritis, unspecified site; Z79.899 Other long term (current) drug therapy; Z88.2 Allergy status to sulfonamides; Z88.8 Allergy status to other drugs, medicaments and biological substances; W10.9XXA Fall (on) (from) unspecified stairs and steps, initial encounter; Z88.5 Allergy status to narcotic agent
CPT/HCPCS: 71101-RT; 99283

== ENCOUNTER 2018-05-11 08:00 | Day surgery (SDC) | payer MEDICARE, BC, MEDICAID ==
[~2018-05-11 08:00] MED LIST: Lactated Ringers 1,000 ML IV SCH; Sodium Chloride 0.9% 5 ML Syringe FLUSH PRN
[2018-05-11] MEDS ORDERED: ceFAZolin 1 GM Vial ONE (08:06)
[2018-05-11] MEDS ORDERED: Propofol 200 MG/20 ML SDV ONE (08:07)
[2018-05-11] MEDS ORDERED: fentaNYL 100 MCG/2 ML SDV ONE (08:07)
[2018-05-11] MEDS ORDERED: Bupivacaine 0.5% 30 ML SDV ONE (08:26)
[2018-05-11] MEDS ORDERED: fentaNYL 100 MCG/2 ML SDV IV ONE (09:15)
[2018-05-11] MEDS ORDERED: Propofol 200 MG/20 ML SDV IV ONE (09:15)
[2018-05-11] MEDS ORDERED: ceFAZolin 1 GM Vial IV ONE (09:15)
[2018-05-11] MEDS ORDERED: Bupivacaine 0.5% 30 ML SDV INJECT ONE (09:20)
--- NOTE | 2018-05-11 09:56 | PCM.OPNOTE ---
- General Post-Op/Procedure Note Date of Surgery/Procedure: 05/11/18 Operative Procedure(s): Right carpal tunnel decompression Findings: Moderate severe compression of the median nerve was observed at the time of surgery. Pre Op Diagnosis: Right carpal tunnel syndrome. Post-Op Diagnosis: As above Anesthesia Technique: Regional Block Primary Surgeon: Karrie Nolan Complications: Nil Condition: Good Free Text/Narrative:: INFORMED CONSENT: Patient is here today for elective right carpal tunnel decompression. All aspects of this procedure have been discussed with the patient. All possible complications also, including possibility of infection, pain, bleeding, persistent numbness, failure of the operation to relieve the symptoms and reoperation were discussed with the patient.. Anesthetic complications were handled by anesthesia department. The patient understands fully well. Patient did not have any further questions for me at the end of my interview. The patient wishes for me to proceed. PROCEDURE: Patient was kept in the supine position and the satisfactory [place] block anesthesia was administered. The right arm was thoroughly prepped and draped in the usual fashion. The tourniquet was placed to the right upper arm and a vertical incision was made in the palm directly distal to the distal wrist crease. The skin incision was deepened through the subcutaneous tissue, the palmar aponeurosis was incised and then we came down upon the transverse carpal ligament, which was opened along the line of the skin incision. Extreme care was taken to protect the median nerve below. Careful neurolysis was performed meticulously. Approximately 2 cc of Marcaine 0.5% was instilled into the wound and skin was closed using mattress sutures with 3.0 Nylon. The tourniquet was released. A sterile pressure dressing was applied. The patient tolerated the procedure well and was transferred to the recovery room in excellent condition.
[2018-05-11 11:26] VITALS: BP 126/62
== END 2018-05-11 12:30 | disposition home or self-care (01) ==
LOC: KA.SDS 08:00
PROVIDERS: ATTEND Family Medicine
DX: G56.01 Carpal tunnel syndrome, right upper limb (principal); I10 Essential (primary) hypertension; E78.2 Mixed hyperlipidemia; K21.9 Gastro-esophageal reflux disease without esophagitis; Z79.82 Long term (current) use of aspirin; Z79.899 Other long term (current) drug therapy; Z88.5 Allergy status to narcotic agent; Z88.8 Allergy status to other drugs, medicaments and biological substances; Z88.2 Allergy status to sulfonamides
CPT/HCPCS: 64721; J0690; J2704; J3010; J3490; J7120; 01810

== ENCOUNTER 2019-08-10 08:57 | Observation (INO) | payer MEDICARE, BC ==
[2019-08-10] MEDS ORDERED: Sodium Chloride 0.9% 10 ML Syringe FLUSH PRN (09:02)
[2019-08-10] MEDS ORDERED: HYDROmorphone 1 MG/ML Syringe IVPUSH ONE (09:13)
[2019-08-10] MEDS ORDERED: Ondansetron 4 MG/2 ML SDV IVPUSH ONE (09:13)
--- NOTE | 2019-08-10 09:13 | EDM.PDOC ---
ED HPI GENERAL MEDICAL PROBLEM - General Chief Complaint: Back Pain or Injury Stated Complaint: BACK PAIN Time Seen by Provider: 08/10/19 09:00 Source of Information: Reports: Patient History Limitations: Reports: No Limitations - History of Present Illness INITIAL COMMENTS - FREE TEXT/NARRATIVE: 84 YO WF presents to ER complaining of lower abdominal pain and back pain which became severe this am. Pt reports history of chronic back pain and lumbar spondylosis. Pt reports she woke this am and had to call for her to help her out of bed. Pt reports she was able to get to the bathroom, but her pain was so severe that she called EMS. Pt complaining of urinary urgency and low back pain on exam. Per EMS pt had a brief syncopal episode in route to hospital. Pt denies chest pain, shortness of breath, headache or neck pain. Onset: Today Duration: Chronic, Getting Worse Location: Reports: Abdomen, Back Quality: Reports: Ache Severity: Severe Improves with: Reports: Rest Worsens with: Reports: Movement Associated Symptoms: Reports: Nausea/Vomiting, Syncope. Denies: Confusion, Chest Pain, Cough, Diaphoresis, Fever/Chills, Headaches, Loss of Appetite, Malaise, Rash, Seizure, Shortness of Breath, Weakness Generalized Pain Score (Numeric/FACES): 10 - Related Data Allergies Allergy/AdvReac Type Severity Reaction Status Date / Time donepezil HCl [From Aricept] Allergy Nausea and Verified 05/11/18 08:16 Vomiting midazolam HCl [From Versed] Allergy Seizure Verified 05/11/18 08:16 Sulfa (Sulfonamide Allergy Itching Verified 05/11/18 08:16 Antibiotics) food additive or seasoning Allergy Intermediate Edema Uncoded 05/07/18 09:29 intrascalene injection Allergy Intermediate hard time Uncoded 05/07/18 09:29 waking up Home Meds: Home Meds Calcium Carbonate [Tums] 500 mg PO QID PRN 01/23/15 [History] Calcium Carbonate/Vitamin D3 [Calcium 600 + Vit D 400] 1 tab PO BEDTIME [History] Clobetasol [Temovate 0.05% Oint] 1 applic TOP ASDIRECTED PRN 01/23/15 [History] Aspirin [Halfprin] 81 mg PO DAILY 11/14/15 [History] Cholecalciferol (Vitamin D3) [Vitamin D3] 3,000 unit PO DAILY 11/14/15 [History] Estrogens, Conjugated [Premarin Vaginal Crm] 0.5 gm VAG Q48H PRN 06/10/17 [ History] Simvastatin [Zocor] 40 mg PO BEDTIME 06/10/17 [History] Acetaminophen [Tylenol Arthritis] 650 mg PO Q6H PRN 05/07/18 [History] Cyclobenzaprine [Flexeril] 10 mg PO TID PRN 05/07/18 [History] Diclofenac Sodium [Voltaren 1% Gel] 2 gm TOP BID 05/07/18 [History] Apixaban [Eliquis] 2.5 mg PO BID 08/05/18 [History] Bisacodyl [Dulcolax] 5 mg PO BID PRN 08/05/18 [History] Bisacodyl [Laxative Suppository] 10 mg RECTAL DAILY PRN 08/05/18 [History] Cyclobenzaprine [Flexeril] 10 mg PO TID PRN 08/05/18 [History] Ferrous Sulfate 325 mg PO DAILY 08/05/18 [History] Magnesium Hydroxide [Milk of Magnesia] 30 ml PO DAILY PRN 08/05/18 [History] Polyethylene Glycol 3350 [MiraLAX] 17 gm PO DAILY 08/05/18 [History] Sennosides/Docusate Sodium [Stool Softener-Laxative] 1 tab PO BID 08/05/18 [ History] traMADol [Ultram] 25 mg PO Q6HR PRN 08/05/18 [History] Past Medical History HEENT History: Reports: Cataract, Hard of Hearing, Impaired Vision Cardiovascular History: Reports: High Cholesterol, Pacemaker, Syncope Gastrointestinal History: Reports: GERD Genitourinary History: Reports: None Other Genitourinary History: dribbles [employer]GER [employer] History: Reports: Musculoskeletal History: Reports: Arthritis, Back Pain, Chronic, Osteoarthritis , Osteoporosis, RA Other Musculoskeletal History: Osteopenia, lumbar spinalosis Neurological History: Reports: Seizure, Vertigo Psychiatric History: Reports: None Endocrine/Metabolic History: Reports: Osteopenia, Osteoporosis Hematologic History: Reports: Anesthesia Reaction, Blood Transfusion(s) - Infectious Disease History Infectious Disease History: Reports: Chicken Pox, Measles, Mumps, Pertussis ( Whooping Cough), Rubella - Past Surgical History Head Surgeries/Procedures: Reports: None HEENT Surgical History: Reports: Cataract Surgery Cardiovascular Surgical History: Reports: None GI Surgical History: Reports: None Female Surgical History: Reports: None Endocrine Surgical History: Reports: None Neurological Surgical History: Reports: Other (See Below) Other Neurological Surgeries/Procedures: Coritisone injection to lumbar. Musculoskeletal Surgical History: Reports: Shoulder Surgery Dermatological Surgical History: Reports: None Social & Family History - Family History Family Medical History: Noncontributory - Caffeine Use Caffeine Use: Reports: Coffee, Soda ED ROS GENERAL - Review of Systems Review Of Systems: See Below Constitutional: Reports: No Symptoms HEENT: Reports: No Symptoms Respiratory: Reports: No Symptoms Cardiovascular: Reports: No Symptoms Endocrine: Reports: No Symptoms GI/Abdominal: Reports: Abdominal Pain, Nausea : Reports: Flank Pain, Frequency, Urgency Musculoskeletal: Reports: Back Pain Skin: Reports: No Symptoms Neurological: Reports: No Symptoms Psychiatric: Reports: No Symptoms Hematologic/Lymphatic: Reports: No Symptoms Immunologic: Reports: No Symptoms ED EXAM, GENERAL - Physical Exam Exam: See Below Exam Limited By: No Limitations General Appearance: Alert, WD/WN, No Apparent Distress Eye Exam: Bilateral Eye: EOMI, PERRL Throat/Mouth: Normal Inspection, Normal Lips, Normal Teeth, Normal Gums, Normal Oropharynx, Normal Voice, No Airway Compromise Head: Atraumatic, Normocephalic Neck: Normal Inspection, Supple, Non-Tender, Full Range of Motion Respiratory/Chest: No Respiratory Distress, Lungs Clear, Normal Breath Sounds, No Accessory Muscle Use, Chest Non-Tender Cardiovascular: Normal Peripheral Pulses, Regular Rate, Rhythm, No Edema, No Gallop, No JVD, No Murmur, No Rub GI/Abdominal: Normal Bowel Sounds, Soft, No Organomegaly, No Distention, No Abnormal Bruit, No Mass, Tender Back Exam: CVA Tenderness (L), CVA Tenderness (R), Muscle Spasm, Paraspinal Tenderness Extremities: Normal Inspection, Normal Range of Motion, Non-Tender, Normal Capillary Refill, No Pedal Edema Neurological: Alert, Oriented, CN II-XII Intact, Normal Cognition, Normal Gait, Normal Reflexes, No Motor/Sensory Deficits Psychiatric: Normal Affect, Normal Mood Skin Exam: Warm, Dry, Intact, Normal Color, No Rash Lymphatic: No Adenopathy EKG INTERPRETATION EKG Date: 08/10/19 Time: 09:14 Rhythm: NSR Rate (Beats/Min): 60 [place]: Normal P-Wave: Present QRS: Normal ST-T: Normal QT: Normal EKG Interpretation Comments: 100% AV paced Course - Vital Signs Last Recorded V/S: Last Vital Signs Temp 36.3 C 08/10/19 09:20 Pulse 63 08/10/19 09:50 Resp 14 08/10/19 09:50 BP 162/48 H 08/10/19 09:50 Pulse Ox 100 08/10/19 09:50 - Orders/Labs/Meds Orders: Active Orders 24 hr Category Date Time Status EKG Documentation Completion [RC] ASDIRECTED Care 08/10/19 09:03 Ordered Insert Urinary Catheter [OM.PC] Q24H Care 08/10/19 09:15 Ordered Peripheral IV Care [RC] . DIRECTED Care 08/10/19 09:03 Active Urinary Catheter Assessment [RC] ASDIRECTED Care 08/10/19 09:13 Ordered Chest 1V Frontal [CR] Stat Exams 08/10/19 09:02 Ordered Sodium Chloride 0.9% @ 125 MLS/HR (1000ml) Med 08/10/19 09:45 Ordered Sodium Chloride 0.9% [Normal Saline] 1,000 ml IV ASDIRECTED Sodium Chloride 0.9% [Saline Flush] Med 08/10/19 09:02 Ordered 10 ml FLUSH Q8HR PRN Peripheral IV Insertion Adult [OM.PC] Routine Oth 08/10/19 09:02 Ordered EKG 12 Lead [EK] Routine Ther 08/10/19 09:02 Ordered Medication Orders Sodium Chloride (Normal Saline) 1,000 mls @ 125 mls/hr IV ASDIRECTED COUNT INCLUDES THE [facility] Last Admin: 08/10/19 09:35 Dose: 999 mls/hr Sodium Chloride (Saline Flush) 10 ml FLUSH Q8HR PRN PRN Reason: keep vein open Last Admin: 08/10/19 09:20 Dose: 10 ml Labs: Laboratory Tests 08/10/19 08/10/19 08/10/19 Range/Units 09:15 09:15 09:15 WBC 4.31 L (5.00-10.00) 10^3/uL RBC 4.38 (3.80-5.50) 10^6/uL Hgb 13.2 (12.0-16.0) g/dL Hct 39.3 (37.0-47.0) % MCV 89.7 D (82.0-92.0) fL MCH 30.1 (27.0-31.0) pg MCHC 33.6 (32.0-36.0) g/dL RDW 14.1 (11.5-14.5) % Plt Count 176 (150-400) 10^3/uL MPV 10.3 (7.4-10.4) fL Immature Gran % (Auto) 0.5 (0.0-5.0) % Neut % (Auto) 63.1 (50.0-70.0) % Lymph % (Auto) 22.3 (20.0-40.0) % [place] % (Auto) 10.4 H (2.0-8.0) % Eos % (Auto) 3.5 H (1.0-3.0) % Baso % (Auto) 0.2 (0.0-1.0) % Immature Gran # (Auto) 0.02 (0.00-0.50) 10^3/uL Neut # (Auto) 2.72 (2.50-7.00) 10^3/uL Lymph # (Auto) 0.96 L (1.00-4.00) 10^3/uL [place] # (Auto) 0.45 (0.10-0.80) 10^3/uL Eos # (Auto) 0.15 (0.10-0.30) 10^3/uL Baso # (Auto) 0.01 (0.00-0.10) 10^3/uL Sodium 146 H (136-145) mmol/L Potassium 4.0 (3.3-5.3) mmol/L Chloride 109 (98-115) mmol/L Carbon Dioxide 24.4 (21.0-32.0) mmol/L Anion Gap 16.6 H (5-15) mmol/L BUN 21 (6-25) mg/dL Creatinine 0.84 (0.51-1.17) mg/dL Est Cr Clr Drug Dosing 42.15 mL/min Estimated GFR (MDRD) > 60 mL/min Glucose 102 H (75 - 99) mg/dL Lactic Acid 1.9 (0.4-2.0) mmol/L Calcium 9.1 (8.7-10.3) mg/dL Total Bilirubin 0.4 (0.2-1.0) mg/dL AST 21 (15-37) U/L ALT 39 (12-78) U/L Alkaline Phosphatase 64 (46-116) IU/L Creatine Kinase 160 (26-276) U/L CK-MB (CK-2) 4.30 (0.00-4.30) ng/mL Troponin I 0.08 H* (0.00-0.070) ng/mL Total Protein 6.8 (6.4-8.2) g/dL Albumin 3.59 (3.00-4.80) g/dL Specimen Type Urine Color (YELLOW) Urine Appearance (CLEAR) Urine pH (5.0-9.0) Ur Specific [place] (1.005-1.030) Urine Protein (NEGATIVE) mg/dL Urine Glucose (UA) (NEGATIVE) mg/dL Urine Ketones (NEGATIVE) mg/dL Urine Occult Blood (NEGATIVE) Urine Nitrite (NEGATIVE) Urine Bilirubin (NEGATIVE) Urine Urobilinogen (0.2-1.0) E.U./dL Ur Leukocyte Esterase (NEGATIVE) Urine RBC (0-5) /HPF Urine WBC (0-5) /HPF Ur Epithelial Cells /LPF Urine Bacteria (NONE TO FEW) /HPF 08/10/19 Range/Units 09:45 WBC (5.00-10.00) 10^3/uL RBC (3.80-5.50) 10^6/uL Hgb (12.0-16.0) g/dL Hct (37.0-47.0) % MCV (82.0-92.0) fL MCH (27.0-31.0) pg MCHC (32.0-36.0) g/dL RDW (11.5-14.5) % Plt Count (150-400) 10^3/uL MPV (7.4-10.4) fL Immature Gran % (Auto) (0.0-5.0) % Neut % (Auto) (50.0-70.0) % Lymph % (Auto) (20.0-40.0) % [place] % (Auto) (2.0-8.0) % Eos % (Auto) (1.0-3.0) % Baso % (Auto) (0.0-1.0) % Immature Gran # (Auto) (0.00-0.50) 10^3/uL Neut # (Auto) (2.50-7.00) 10^3/uL Lymph # (Auto) (1.00-4.00) 10^3/uL [place] # (Auto) (0.10-0.80) 10^3/uL Eos # (Auto) (0.10-0.30) 10^3/uL Baso # (Auto) (0.00-0.10) 10^3/uL Sodium (136-145) mmol/L Potassium (3.3-5.3) mmol/L Chloride (98-115) mmol/L Carbon Dioxide (21.0-32.0) mmol/L Anion Gap (5-15) mmol/L BUN (6-25) mg/dL Creatinine (0.51-1.17) mg/dL Est Cr Clr Drug Dosing mL/min Estimated GFR (MDRD) mL/min Glucose (75 - 99) mg/dL Lactic Acid (0.4-2.0) mmol/L Calcium (8.7-10.3) mg/dL Total Bilirubin (0.2-1.0) mg/dL AST (15-37) U/L ALT (12-78) U/L Alkaline Phosphatase (46-116) IU/L Creatine Kinase (26-276) U/L CK-MB (CK-2) (0.00-4.30) ng/mL Troponin I (0.00-0.070) ng/mL Total Protein (6.4-8.2) g/dL Albumin (3.00-4.80) g/dL Specimen Type Urincath Urine Color Light yellow (YELLOW) Urine Appearance Slightly cloudy H (CLEAR) Urine pH 8.0 (5.0-9.0) Ur Specific [place] 1.015 (1.005-1.030) Urine Protein Negative (NEGATIVE) mg/dL Urine Glucose (UA) Negative (NEGATIVE) mg/dL Urine Ketones Negative (NEGATIVE) mg/dL Urine Occult Blood Negative (NEGATIVE) Urine Nitrite Negative (NEGATIVE) Urine Bilirubin Negative (NEGATIVE) Urine Urobilinogen 0.2 (0.2-1.0) E.U./dL Ur Leukocyte Esterase Negative (NEGATIVE) Urine RBC 0-5 (0-5) /HPF Urine WBC 0-5 (0-5) /HPF Ur Epithelial Cells Few /LPF Urine Bacteria Few (NONE TO FEW) /HPF Meds: Medications Generic Name Dose Route Start Last Admin Trade Name Freq PRN Reason Stop Dose Admin Sodium Chloride 1,000 mls @ 125 mls/hr 08/10/19 09:45 08/10/19 09:35 Normal Saline IV 999 mls/hr ASDIRECTED GRADY Administration Sodium Chloride 10 ml 08/10/19 09:02 08/10/19 09:20 Saline Flush FLUSH 10 ml Q8HR PRN Administration keep vein open Discontinued Medications Generic Name Dose Route Start Last Admin Trade Name Freq PRN Reason Stop Dose Admin Hydromorphone HCl 0.5 mg 08/10/19 09:13 08/10/19 09:22 Dilaudid IVPUSH 08/10/19 09:14 0.5 mg ONETIME ONE Administration Sodium Chloride Confirm 08/10/19 09:28 08/10/19 09:37 Normal Saline Administered 08/10/19 09:29 Not Given Dose 1,000 mls @ as directed .ROUTE .STK-MED ONE Ondansetron HCl 4 mg 08/10/19 09:13 08/10/19 09:19 Zofran IVPUSH 08/10/19 09:14 4 mg ONETIME ONE Administration - Radiology Interpretation Free Text/Narrative:: CXR- NAD Departure - Departure Time of Disposition: 10:25 Disposition: Refer to Observation Condition: Fair Clinical Impression: Near syncope, Elevated troponin I level Urinary tract infection Qualifiers: Urinary tract infection type: acute cystitis Hematuria presence: without hematuria Qualified Code(s): N30.00 - Acute cystitis without hematuria Chronic back pain Qualifiers: Back pain location: low back pain Sciatica presence: without sciatica - Discharge Information Referrals: Karrie Nolan MD [Primary Care Provider] - Forms: ED Department Discharge - My Orders Last 24 Hours: My Active Orders 08/10/19 09:02 Chest 1V Frontal [CR] Stat Sodium Chloride 0.9% [Saline Flush] 10 ml FLUSH Q8HR PRN Peripheral IV Insertion Adult [OM.PC] Routine EKG 12 Lead [EK] Routine 08/10/19 09:03 EKG Documentation Completion [RC] ASDIRECTED Peripheral IV Care [RC] . DIRECTED 08/10/19 09:13 Urinary Catheter Assessment [RC] ASDIRECTED 08/10/19 09:15 Insert Urinary Catheter [OM.PC] Q24H 08/10/19 09:45 Sodium Chloride 0.9% @ 125 MLS/HR (1000ml) Sodium Chloride 0.9% [Normal Saline] 1,000 ml IV ASDIRECTED - Assessment/Plan Last 24 Hours: My Active Orders 08/10/19 09:02 Chest 1V Frontal [CR] Stat Sodium Chloride 0.9% [Saline Flush] 10 ml FLUSH Q8HR PRN Peripheral IV Insertion Adult [OM.PC] Routine EKG 12 Lead [EK] Routine 08/10/19 09:03 EKG Documentation Completion [RC] ASDIRECTED Peripheral IV Care [RC] . DIRECTED 08/10/19 09:13 Urinary Catheter Assessment [RC] ASDIRECTED 08/10/19 09:15 Insert Urinary Catheter [OM.PC] Q24H 08/10/19 09:45 Sodium Chloride 0.9% @ 125 MLS/HR (1000ml) Sodium Chloride 0.9% [Normal Saline] 1,000 ml IV ASDIRECTED Assessment:: 1. UTI 2. Elevated trop I 3. near syncope Plan: 1. admit to obs- Jeremi HERNADEZ 2. supportive care 3. serial trop I 4. abx per medicine- instructed to hold until pt evaluated by medicine
[2019-08-10] MEDS ORDERED: Sodium Chloride 0.9% 1,000 ML ONE (09:28)
[2019-08-10] MEDS ORDERED: Sodium Chloride 0.9% 1,000 ML IV SCH (09:45)
[2019-08-10 10:01] LABS: ANION GAP 16.6 mmol/L (5-15); CHLORIDE,CL 109 mmol/L (98-115); SODIUM,NA 146 mmol/L (136-145)
--- NOTE | 2019-08-10 10:14 | CR ---
[id number] RAD/RAD Chest PA or AP 1V EXAM: RAD Chest PA or AP 1V INDICATION: SYNCOPE. COMPARISON: September 20, 2017. DISCUSSION: Left chest wall cardiac conduction device. Cardiomediastinal silhouette is normal in size and contour. No infiltrate, effusion, pneumothorax, or edema. IMPRESSION: No acute cardiopulmonary abnormality. Edward Ferreira DO 08/10/19 1013 Thank you for allowing us to participate in the care of your patient.
--- NOTE | 2019-08-10 11:33 | PCM.HP.2 ---
H&P History of Present Illness - General Date of Service: 08/10/19 Admit Problem/Dx: Admission Diagnosis/Problem Admission Diagnosis/Problem Near syncope History Limitations: Reports: No Limitations - History of Present Illness Initial Comments - Free Text/Narative: Very pleasant 84-year-old female who was seen, evaluated and admitted through the ED when she came in lower abdominal pain and back pain which became severe at 4am. She did develop chest pain and a severe headache in the ambulance at approximately 8am. Nori does have a hx of osteoarthritis with chronic back pain and lumbar spondylosis. Pt reports she woke this am and had to call for her to help her out of bed. Pt reports she was able to get to the bathroom, but her pain in her back was so severe--prompting EMS transfer. Pt complaining of urinary urgency and low back pain on exam. Per EMS pt had a brief syncopal episode in route to hospital. Pt denies shortness of breath or neck pain. Generalized Pain Score (Numeric/FACES): 10 - Related Data Allergies/Adverse Reactions: Allergies Allergy/AdvReac Type Severity Reaction Status Date / Time donepezil HCl [From Aricept] Allergy Nausea and Verified 05/11/18 08:16 Vomiting midazolam HCl [From Versed] Allergy Seizure Verified 05/11/18 08:16 Sulfa (Sulfonamide Allergy Itching Verified 05/11/18 08:16 Antibiotics) tramadol Allergy Itching Verified 08/10/19 10:24 intrascalene injection Allergy Intermediate hard time Uncoded 05/07/18 09:29 waking up Home Medications: Home Meds Calcium Carbonate [Tums] 500 mg PO QID PRN 01/23/15 [History] Aspirin [Halfprin] 81 mg PO DAILY 11/14/15 [History] Estrogens, Conjugated [Premarin Vaginal Crm] 0.5 gm VAG Q48H PRN 06/10/17 [ History] Simvastatin [Zocor] 40 mg PO BEDTIME 06/10/17 [History] Diclofenac Sodium [Voltaren 1% Gel] 1 gm TOP BID PRN 05/07/18 [History] Polyethylene Glycol 3350 [MiraLAX] 17 gm PO DAILY PRN 08/05/18 [History] Baclofen 1 - 2 tab PO Q4H PRN 08/10/19 [History] Calcium Carbonate/Vitamin D3 [Calcium 500-Vit D3 200 Tablet] 1 tab PO BEDTIME [History] Cholecalciferol (Vitamin D3) [Vitamin D3] 3,000 units PO DAILY 08/10/19 [History ] Denosumab [Prolia] 60 mg SQ ASDIRECTED 08/10/19 [History] Acetaminophen [Tylenol Arthritis] 650 mg PO Q6H #180 tablet.er 08/12/19 [Rx] Clopidogrel [Plavix] 75 mg PO DAILY #90 tablet 08/12/19 [Rx] Diclofenac Sodium [Voltaren 1% Gel] 1 gm TOP QID PRN #1 tube 08/12/19 [Rx] Ferrous Sulfate 325 mg PO DAILY #0 08/12/19 [Rx] Lidocaine 5% [Lidoderm 5%] 1 patch TOP DAILY #30 patch 08/12/19 [Rx] Past Medical History HEENT History: Reports: Cataract, Hard of Hearing, Impaired Vision Cardiovascular History: Reports: High Cholesterol, Pacemaker, Syncope Respiratory History: Reports: None Gastrointestinal History: Reports: GERD Genitourinary History: Reports: None Other Genitourinary History: dribbles 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: Musculoskeletal History: Reports: Arthritis, Back Pain, Chronic, Osteoarthritis , Osteoporosis, RA Other Musculoskeletal History: Osteopenia, lumbar spinalosis Neurological History: Reports: Seizure, Vertigo Psychiatric History: Reports: None Endocrine/Metabolic History: Reports: Osteopenia, Osteoporosis Hematologic History: Reports: Anesthesia Reaction, Blood Transfusion(s) Immunologic History: Reports: None Oncologic (Cancer) History: Reports: None Dermatologic History: Reports: None - Infectious Disease History Infectious Disease History: Reports: Chicken Pox, Measles, Mumps, Pertussis ( Whooping Cough), Rubella - Past Surgical History Head Surgeries/Procedures: Reports: None HEENT Surgical History: Reports: Cataract Surgery Cardiovascular Surgical History: Reports: None GI Surgical History: Reports: None Female Surgical History: Reports: None Endocrine Surgical History: Reports: None Neurological Surgical History: Reports: Other (See Below) Other Neurological Surgeries/Procedures: Coritisone injection to lumbar. Musculoskeletal Surgical History: Reports: Shoulder Surgery Dermatological Surgical History: Reports: None Social & Family History - Family History Cardiac: Reports: Hypertension, [place] Respiratory: Reports: None GI: Reports: None : Reports: None OBGYN: Reports: None Musculoskeletal: Reports: Arthritis Neurological: Reports: None - Tobacco Use Smoking Status *Q: Never Smoker - Caffeine Use Caffeine Use: Reports: Coffee, Soda - Recreational Drug Use Recreational Drug Use: No H&P Review of Systems - Review of Systems: Review Of Systems: See Below General: Reports: Fatigue. Denies: Fever, Chills HEENT: Reports: Headaches. Denies: Vertigo, Visual Changes Pulmonary: Denies: Shortness of Breath, Wheezing, Cough, Hemoptysis Cardiovascular: Reports: Chest Pain, Lightheadedness, Syncope. Denies: Palpitations, Dyspnea on Exertion, Edema Gastrointestinal: Reports: Abdominal Pain. Denies: Black Stool, Bloody Stool, Decreased Appetite Genitourinary: Reports: Frequency. Denies: Dysuria, Hematuria Musculoskeletal: Reports: Neck Pain, Back Pain Skin: Reports: No Symptoms Psychiatric: Reports: No Symptoms Neurological: Reports: Headache Hematologic/Lymphatic: Reports: No Symptoms Immunologic: Reports: No Symptoms Exam - Exam Exam: See Below - Vital Signs Vital Signs: Last Vital Signs Temp 97.3 F 08/10/19 09:20 Pulse 60 08/10/19 10:09 Resp 17 08/10/19 10:09 BP 159/57 H 08/10/19 10:09 Pulse Ox 99 08/10/19 10:09 Weight: 180 lb - Exam Quality Assessment: No: Supplemental Oxygen General: Alert, Oriented, Cooperative HEENT: Pupils Equal, Pupils Reactive Neck: Supple. No: JVD Lungs: Clear to Auscultation, Normal Respiratory Effort Cardiovascular: Regular Rate, Regular Rhythm. No: Systolic Murmur, Diastolic Murmur GI/Abdominal Exam: Normal Bowel Sounds, Soft, No Distention, Tender (RLQ/groin area) (Female) Exam: Deferred Rectal (Female) Exam: Deferred Back Exam: Normal Inspection, Paraspinal Tenderness Extremities: Normal Inspection, No Pedal Edema Peripheral Pulses: 2+: Dorsalis Pedis (L), Dorsalis Pedis (R) Skin: Warm, Dry Neurological: Normal Speech Neuro Extensive - Mental Status: Alert, Oriented x3, Normal Mood/Affect Psychiatric: Alert, Normal Affect, Normal Mood - Patient Data Lab Results Last 24 hrs: Laboratory Results - last 24 hr 08/10/19 08/10/19 08/10/19 Range/Units 09:15 09:15 09:15 WBC 4.31 L (5.00-10.00) 10^3/uL RBC 4.38 (3.80-5.50) 10^6/uL Hgb 13.2 (12.0-16.0) g/dL Hct 39.3 (37.0-47.0) % MCV 89.7 D (82.0-92.0) fL MCH 30.1 (27.0-31.0) pg MCHC 33.6 (32.0-36.0) g/dL RDW 14.1 (11.5-14.5) % Plt Count 176 (150-400) 10^3/uL MPV 10.3 (7.4-10.4) fL Immature Gran % (Auto) 0.5 (0.0-5.0) % Neut % (Auto) 63.1 (50.0-70.0) % Lymph % (Auto) 22.3 (20.0-40.0) % [place] % (Auto) 10.4 H (2.0-8.0) % Eos % (Auto) 3.5 H (1.0-3.0) % Baso % (Auto) 0.2 (0.0-1.0) % Immature Gran # (Auto) 0.02 (0.00-0.50) 10^3/uL Neut # (Auto) 2.72 (2.50-7.00) 10^3/uL Lymph # (Auto) 0.96 L (1.00-4.00) 10^3/uL [place] # (Auto) 0.45 (0.10-0.80) 10^3/uL Eos # (Auto) 0.15 (0.10-0.30) 10^3/uL Baso # (Auto) 0.01 (0.00-0.10) 10^3/uL Sodium 146 H (136-145) mmol/L Potassium 4.0 (3.3-5.3) mmol/L Chloride 109 (98-115) mmol/L Carbon Dioxide 24.4 (21.0-32.0) mmol/L Anion Gap 16.6 H (5-15) mmol/L BUN 21 (6-25) mg/dL Creatinine 0.84 (0.51-1.17) mg/dL Est Cr Clr Drug Dosing 42.15 mL/min Estimated GFR (MDRD) > 60 mL/min Glucose 102 H (75 - 99) mg/dL Lactic Acid 1.9 (0.4-2.0) mmol/L Calcium 9.1 (8.7-10.3) mg/dL Total Bilirubin 0.4 (0.2-1.0) mg/dL AST 21 (15-37) U/L ALT 39 (12-78) U/L Alkaline Phosphatase 64 (46-116) IU/L Creatine Kinase 160 (26-276) U/L CK-MB (CK-2) 4.30 (0.00-4.30) ng/mL Troponin I 0.08 H* (0.00-0.070) ng/mL Total Protein 6.8 (6.4-8.2) g/dL Albumin 3.59 (3.00-4.80) g/dL Specimen Type Urine Color (YELLOW) Urine Appearance (CLEAR) Urine pH (5.0-9.0) Ur Specific [place] (1.005-1.030) Urine Protein (NEGATIVE) mg/dL Urine Glucose (UA) (NEGATIVE) mg/dL Urine Ketones (NEGATIVE) mg/dL Urine Occult Blood (NEGATIVE) Urine Nitrite (NEGATIVE) Urine Bilirubin (NEGATIVE) Urine Urobilinogen (0.2-1.0) E.U./dL Ur Leukocyte Esterase (NEGATIVE) Urine RBC (0-5) /HPF Urine WBC (0-5) /HPF Ur Epithelial Cells /LPF Urine Bacteria (NONE TO FEW) /HPF 08/10/19 Range/Units 09:45 WBC (5.00-10.00) 10^3/uL RBC (3.80-5.50) 10^6/uL Hgb (12.0-16.0) g/dL Hct (37.0-47.0) % MCV (82.0-92.0) fL MCH (27.0-31.0) pg MCHC (32.0-36.0) g/dL RDW (11.5-14.5) % Plt Count (150-400) 10^3/uL MPV (7.4-10.4) fL Immature Gran % (Auto) (0.0-5.0) % Neut % (Auto) (50.0-70.0) % Lymph % (Auto) (20.0-40.0) % [place] % (Auto) (2.0-8.0) % Eos % (Auto) (1.0-3.0) % Baso % (Auto) (0.0-1.0) % Immature Gran # (Auto) (0.00-0.50) 10^3/uL Neut # (Auto) (2.50-7.00) 10^3/uL Lymph # (Auto) (1.00-4.00) 10^3/uL [place] # (Auto) (0.10-0.80) 10^3/uL Eos # (Auto) (0.10-0.30) 10^3/uL Baso # (Auto) (0.00-0.10) 10^3/uL Sodium (136-145) mmol/L Potassium (3.3-5.3) mmol/L Chloride (98-115) mmol/L Carbon Dioxide (21.0-32.0) mmol/L Anion Gap (5-15) mmol/L BUN (6-25) mg/dL Creatinine (0.51-1.17) mg/dL Est Cr Clr Drug Dosing mL/min Estimated GFR (MDRD) mL/min Glucose (75 - 99) mg/dL Lactic Acid (0.4-2.0) mmol/L Calcium (8.7-10.3) mg/dL Total Bilirubin (0.2-1.0) mg/dL AST (15-37) U/L ALT (12-78) U/L Alkaline Phosphatase (46-116) IU/L Creatine Kinase (26-276) U/L CK-MB (CK-2) (0.00-4.30) ng/mL Troponin I (0.00-0.070) ng/mL Total Protein (6.4-8.2) g/dL Albumin (3.00-4.80) g/dL Specimen Type Urincath Urine Color Light yellow (YELLOW) Urine Appearance Slightly cloudy H (CLEAR) Urine pH 8.0 (5.0-9.0) Ur Specific [place] 1.015 (1.005-1.030) Urine Protein Negative (NEGATIVE) mg/dL Urine Glucose (UA) Negative (NEGATIVE) mg/dL Urine Ketones Negative (NEGATIVE) mg/dL Urine Occult Blood Negative (NEGATIVE) Urine Nitrite Negative (NEGATIVE) Urine Bilirubin Negative (NEGATIVE) Urine Urobilinogen 0.2 (0.2-1.0) E.U./dL Ur Leukocyte Esterase Negative (NEGATIVE) Urine RBC 0-5 (0-5) /HPF Urine WBC 0-5 (0-5) /HPF Ur Epithelial Cells Few /LPF Urine Bacteria Few (NONE TO FEW) /HPF Result Diagrams: 08/10/19 09:15 08/11/19 07:10 Problem List Initiated/Reviewed/Updated: Yes Orders Last 24hrs: Active Orders 24 hr Category Date Time Status Patient Status Manage Transfer [TRANSFER] Routine ADT 08/10/19 10:26 Ordered EKG Documentation Completion [RC] ASDIRECTED Care 08/10/19 09:03 Active Insert Urinary Catheter [OM.PC] Q24H Care 08/10/19 09:15 Ordered Peripheral IV Care [RC] . DIRECTED Care 08/10/19 09:03 Active Urinary Catheter Assessment [RC] ASDIRECTED Care 08/10/19 09:13 Active Sodium Chloride 0.9% [Normal Saline] 1,000 ml Med 08/10/19 09:45 Active IV ASDIRECTED Sodium Chloride 0.9% [Saline Flush] Med 08/10/19 09:02 Active 10 ml FLUSH Q8HR PRN Peripheral IV Insertion Adult [OM.PC] Routine Oth 08/10/19 09:02 Ordered Medication Orders Sodium Chloride (Normal Saline) 1,000 mls @ 125 mls/hr IV ASDIRECTED GRADY Last Infusion: 08/10/19 10:04 Dose: 125 mls/hr Admin: 08/10/19 09:35 Dose: 999 mls/hr Sodium Chloride (Saline Flush) 10 ml FLUSH Q8HR PRN PRN Reason: keep vein open Last Admin: 08/10/19 09:20 Dose: 10 ml Assessment/Plan Comment:: History of Present illness Very pleasant 84-year-old female who was seen, evaluated and admitted through the ED when she came in lower abdominal pain and back pain which became severe at 4am. She did develop chest pain and a severe headache in the ambulance at approximately 8am. Nori does have a hx of osteoarthritis with chronic back pain and lumbar spondylosis. Pt reports she woke this am and had to call for her to help her out of bed. Pt reports she was able to get to the bathroom, but her pain in her back was so severe--prompting EMS transfer. Pt complaining of urinary urgency and low back pain on exam. Per EMS pt had a brief syncopal episode in route to hospital. Pt denies shortness of breath or neck pain. History of vasovagal syncope and tachycardia bradycardia Pacemaker Dr Castro Prehospital course/Pertinent ED Findings: --VS: afebrile, --Labs: initial troponin 0.08 --EKG: Dual-chamber paced, non-STEMI --CXR, no pneumothorax infiltrate or effusions --Urinary: non-concerning; lactic acid 1.9 and WBC 4.31 Pertinent historical diagnostics abdomen CT, 12/2018, No imaging finding to account for patient's clinical presentation. There is no recurrent hernia. Primary Hospital Problems: --Rule out ACS/flow-limited disease, home ASA FOR NOW, TESFAYE risk, 01/03 intermediate, pretest CAD probability indeterminate, [facility]--no c/p. tele, serial cardio-biomarkers. --Sick sinus syndrome, Hx vasovagal syncope and tachycardia/bradycardia Pacemaker [address] Castro --CKD, GFR 48-65, normal creatinine levels, recent NSAID/VAN-2 use --Asymptomatic bacteruria, forego abx, will culture --Osteoarthritis/cervical DDD, Chronic/Stable Problems: Hyperlipidemia Osteopenia; off label Prolia FRAX score less than 20% Disposition/Overall Plan: --Will admit to OBS/telemetry status; --Serial enzymes --EKG for chest pain --Remove Meléndez cath. Bladder scan if no o/p in 6 hours. 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
[2019-08-10] MEDS ORDERED: Polyethylene Glycol 3350 Powder 17 GM Packet PO PRN (11:42)
[2019-08-10] MEDS ORDERED: Acetaminophen 650 MG Tab.ER PO SCH (12:15)
[2019-08-10] MEDS: Baclofen 10 MG Tab PO PRN (12:28)
[2019-08-10] MEDS ORDERED: Aspirin 81 MG Tab.Chew PO ONE ×2 (15:02→15:13)
[2019-08-10] MEDS ORDERED: Enoxaparin 30 MG/0.3 ML Syringe SUBCUT ONE (15:03)
[2019-08-10] MEDS ORDERED: Clopidogrel 75 MG Tab PO ONE (15:06)
[2019-08-10] MEDS ORDERED: Furosemide 40 MG/4 ML VIAL IVPUSH ONE (16:55)
[2019-08-10] MEDS ORDERED: EPINEPHrine 1:10,000 1 MG/10 ML Syringe IVPUSH PRN (18:18)
[2019-08-10] MEDS ORDERED: Lidocaine 2% 100 MG/5 ML Syringe IVPUSH PRN (18:18)
[2019-08-10] MEDS ORDERED: Atropine 0.1 MG/ML 10 ML Syringe IVPUSH PRN (18:18)
[2019-08-10] MEDS ORDERED: Nitroglycerin 0.4 MG Tab.SL SL PRN (18:18)
[2019-08-10] MEDS: Acetaminophen 650 MG Tab.ER PO SCH (20:48)
[2019-08-10] MEDS: Simvastatin 20 MG Tab PO SCH (20:55)
[2019-08-11] MEDS: Acetaminophen 650 MG Tab.ER PO SCH ×4 (03:04→21:13)
[2019-08-11] MEDS: Baclofen 10 MG Tab PO PRN (03:05)
[2019-08-11] MEDS ORDERED: Enoxaparin 100 MG/1 ML Syringe SUBCUT SCH (05:00)
[2019-08-11] MEDS: Enoxaparin 60 MG/0.6 ML Syringe SUBCUT SCH ×2 (06:36→17:58)
[2019-08-11 07:49] LABS: ANION GAP 12.7 mmol/L (5-15); CHLORIDE,CL 110 mmol/L (98-115); SODIUM,NA 144 mmol/L (136-145)
[2019-08-11] MEDS: Diclofenac Sodium 1% Gel 100 GM Tube TOP PRN (07:49)
[2019-08-11] MEDS: Aspirin 81 MG Tab.EC PO SCH (09:20)
[2019-08-11] MEDS: Clopidogrel 75 MG Tab PO SCH (09:20)
--- NOTE | 2019-08-11 11:01 | PCM.PN ---
- General Info Date of Service: 08/11/19 Functional Status: Denies: Pain Controlled, Ambulating - Review of Systems General: Reports: No Symptoms Pulmonary: Reports: No Symptoms. Denies: Shortness of Breath Cardiovascular: Reports: No Symptoms. Denies: Chest Pain, Edema Gastrointestinal: Reports: No Symptoms. Denies: Constipation, Nausea Genitourinary: Reports: No Symptoms Musculoskeletal: Reports: Back Pain, Other (right hip pain) Skin: Reports: No Symptoms Neurological: Reports: No Symptoms. Denies: Confusion - Patient Data Vitals - Most Recent: Last Vital Signs Temp 97.5 F 08/11/19 06:55 Pulse 62 08/11/19 06:55 Resp 20 08/11/19 06:55 BP 126/68 08/11/19 06:55 Pulse Ox 98 08/11/19 07:00 Weight - Most Recent: 180 lb I&O - Last 24 Hours: Intake & Output 08/10/19 08/11/19 08/11/19 22:59 06:59 14:59 Intake Total 1145 80 Output Total 1200 1300 Balance -55 -1220 Lab Results Last 24 Hours: Laboratory Results - last 24 hr 08/10/19 08/10/19 08/10/19 Range/Units 14:00 15:48 20:08 Sodium (136-145) mmol/L Potassium (3.3-5.3) mmol/L Chloride (98-115) mmol/L Carbon Dioxide (21.0-32.0) mmol/L Anion Gap (5-15) mmol/L BUN (6-25) mg/dL Creatinine (0.51-1.17) mg/dL Est Cr Clr Drug Dosing mL/min Estimated GFR (MDRD) mL/min Glucose (75 - 99) mg/dL Calcium (8.7-10.3) mg/dL Troponin I 0.11 H* 0.10 H* (0.00-0.070) ng/mL B-Natriuretic Peptide 278 H (0-100) pg/mL 08/11/19 Range/Units 07:10 Sodium 144 (136-145) mmol/L Potassium 4.1 (3.3-5.3) mmol/L Chloride 110 (98-115) mmol/L Carbon Dioxide 25.4 (21.0-32.0) mmol/L Anion Gap 12.7 (5-15) mmol/L BUN 17 (6-25) mg/dL Creatinine 0.81 (0.51-1.17) mg/dL Est Cr Clr Drug Dosing 43.71 mL/min Estimated GFR (MDRD) > 60 mL/min Glucose 98 (75 - 99) mg/dL Calcium 8.2 L (8.7-10.3) mg/dL Troponin I 0.07 (0.00-0.070) ng/mL B-Natriuretic Peptide (0-100) pg/mL Med Orders - Current: Current Medications Acetaminophen (Tylenol Arthritis Pain) 650 mg PO Q8H [facility] Last Admin: 08/11/19 04:03 Dose: Not Given Aspirin (Halfprin) 81 mg PO DAILY [facility] Last Admin: 08/11/19 09:20 Dose: 81 mg Atropine Sulfate (Atropine 0.1 Mg/Ml) 0 mg IVPUSH ASDIRECTED PRN PRN Reason: Heart. Baclofen (Lioresal) 10 - 20 mg PO Q4H PRN PRN Reason: leg cramps Last Admin: 08/11/19 03:05 Dose: 10 mg Clopidogrel Bisulfate (Plavix) 75 mg PO DAILY [facility] Last Admin: 08/11/19 09:20 Dose: 75 mg Diclofenac Sodium (Voltaren 1% Gel) 1 gm TOP QID PRN PRN Reason: Pain Last Admin: 08/11/19 07:49 Dose: 1 applic Enoxaparin Sodium (Lovenox) 60 mg SUBCUT Q12H [facility] Last Admin: 08/11/19 06:36 Dose: 60 mg Epinephrine HCl (Epinephrine 1:10,000) 1 mg IVPUSH ASDIRECTED PRN PRN Reason: Heart. Lidocaine HCl (Xylocaine 2%) 0 mg IVPUSH ASDIRECTED PRN PRN Reason: Heart. Nitroglycerin (Nitrostat) 0.4 mg SL ASDIRECTED PRN PRN Reason: Heart. Polyethylene Glycol (Miralax) 17 gm PO DAILY PRN PRN Reason: Constipation Simvastatin (Zocor) 40 mg PO BEDTIME [facility] Last Admin: 08/10/19 20:55 Dose: 40 mg Discontinued Medications Acetaminophen (Tylenol Arthritis Pain) 650 mg PO Q6HR [facility] Last Admin: 08/10/19 12:28 Dose: 650 mg Aspirin (Aspirin) 81 mg PO ONETIME ONE Stop: 08/10/19 15:03 Last Admin: 08/10/19 15:15 Dose: Not Given Aspirin (Aspirin) 162 mg PO ONETIME ONE Stop: 08/10/19 15:14 Last Admin: 08/10/19 15:15 Dose: 162 mg Clopidogrel Bisulfate (Plavix) 300 mg PO ONETIME ONE Stop: 08/10/19 15:07 Last Admin: 08/10/19 15:15 Dose: 300 mg Enoxaparin Sodium (Lovenox) 30 mg SUBCUT ONETIME ONE Stop: 08/10/19 15:04 Last Admin: 08/10/19 15:30 Dose: 30 mg Enoxaparin Sodium (Lovenox) 80 mg SUBCUT Q12H GRADY Furosemide (Lasix) 10 mg IVPUSH NOW ONE Stop: 08/10/19 16:56 Last Admin: 08/10/19 17:11 Dose: 10 mg Hydromorphone HCl (Dilaudid) 0.5 mg IVPUSH ONETIME ONE Stop: 08/10/19 09:14 Last Admin: 08/10/19 09:22 Dose: 0.5 mg Sodium Chloride (Normal Saline) Confirm Administered Dose 1,000 mls @ as directed .ROUTE .STK-MED ONE Stop: 08/10/19 09:29 Last Admin: 08/10/19 09:37 Dose: Not Given Sodium Chloride (Normal Saline) 1,000 mls @ 125 mls/hr IV ASDIRECTED GRADY Last Infusion: 08/10/19 10:04 Dose: 125 mls/hr Ondansetron HCl (Zofran) 4 mg IVPUSH ONETIME ONE Stop: 08/10/19 09:14 Last Admin: 08/10/19 09:19 Dose: 4 mg Sodium Chloride (Saline Flush) 10 ml FLUSH Q8HR PRN PRN Reason: keep vein open Last Admin: 08/10/19 09:20 Dose: 10 ml - Exam Quality Assessment: DVT Prophylaxis (cross covered). No: Supplemental Oxygen General: Alert, Oriented, Mild Distress (upon movement) Lungs: Clear to Auscultation Cardiovascular: Regular Rate, Regular Rhythm, No Murmurs. No: Irregular Rhythm GI/Abdominal Exam: Normal Bowel Sounds, Soft, Non-Tender Back Exam: Other (positive SLR, positive Fabers radiating down to hip/right groin; strength 4/5 right hip adduction). No: CVA Tenderness (L), CVA Tenderness (R) Extremities: No Pedal Edema Neurological: No New Focal Deficit, Normal Speech, Normal Tone Psy/Mental Status: Alert - Problem List Review Problem List Initiated/Reviewed/Updated: Yes - My Orders Last 24 Hours: My Active Orders 08/10/19 10:26 Patient Status [ADT] Routine 08/10/19 11:42 Baclofen [Lioresal] 10 - 20 mg PO Q4H PRN Diclofenac Sodium [Voltaren 1% Gel] 1 gm TOP QID PRN Polyethylene Glycol 3350 [MiraLAX] 17 gm PO DAILY PRN 08/10/19 11:48 Telemetry Monitoring [Cardiac Monitoring] [RC] 0300,0700,1100,1500,1900,2300 08/10/19 11:49 Height and Weight [RC] 0700 Oxygen Therapy [RC] PRN Up to Chair [RC] ASDIRECTED VTE/DVT Education [RC] PER UNIT ROUTINE Vital Signs [RC] 0300,0700,1100,1500,1900,2300 Resuscitation Status Routine 08/10/19 11:53 Intake and Output [RC] 1400,2200,0600 Sequential Compression Device [OM.PC] Per Unit Routine 08/10/19 11:55 Antiembolic Devices [RC] 0900,2100 08/10/19 20:30 Acetaminophen [Tylenol Arthritis Pain] 650 mg PO Q8H 08/10/19 21:00 Simvastatin [Zocor] 40 mg PO BEDTIME 08/10/19 Dinner Cardiac [Heart Healthy Diet] [DIET] 08/11/19 06:00 Enoxaparin [Lovenox] 60 mg SUBCUT Q12H 08/11/19 09:00 Aspirin [Halfprin] 81 mg PO DAILY Clopidogrel [Plavix] 75 mg PO DAILY - Plan Plan:: History of Present illness Very pleasant 84-year-old female who was seen, evaluated and admitted through the ED when she came in lower abdominal pain and back pain which became severe at 4am. She did develop chest pain and a severe headache in the ambulance at approximately 8am. Nori does have a hx of osteoarthritis with chronic back pain and lumbar spondylosis. Pt reports she woke this am and had to call for her to help her out of bed. Pt reports she was able to get to the bathroom, but her pain in her back was so severe--prompting EMS transfer. Pt complaining of urinary urgency and low back pain on exam. Per EMS pt had a brief syncopal episode in route to hospital. Pt denies shortness of breath or neck pain. History of vasovagal syncope and tachycardia bradycardia Pacemaker Dr Castro Prehospital course/Pertinent ED Findings: --VS: afebrile, --Labs: initial troponin 0.08 --EKG: Dual-chamber paced, non-STEMI --CXR, no pneumothorax infiltrate or effusions --Urinary: non-concerning; lactic acid 1.9 and WBC 4.31 Pertinent historical diagnostics abdomen CT, 12/2018, No imaging finding to account for patient's clinical presentation. There is no recurrent hernia. Update on rounds: Patient sitting in chair this morning. Had a fairly good night. No overnight calls. NO chest pain/SOB. Troponin was elevated yesterday , trended down. DAPT including antcoagulation started. No EKG changes, no chest pain. Troponin now normal. Ongoing significant back pain causing decrease in function in ADL capability. Primary Hospital Problems: --ACS/flow-limited disease, ASA/DAPT, TESFAYE risk, 01/03 intermediate, pretest CAD probability indeterminate, [facility]--no c/p. tele. Conservative medical management, non invasive approach. Discussed with patient and she agrees with that. --Sick sinus syndrome, Hx vasovagal syncope and tachycardia/bradycardia Pacemaker [address] Castro --CKD, GFR 48-65, normal creatinine levels, recent NSAID/VAN-2 use --Asymptomatic bacteruria, forego abx, culture pending --Osteoarthritis/cervical DDD, Chronic/Stable Problems: Hyperlipidemia Osteopenia; off label Prolia FRAX score less than 20% Disposition/Overall Plan: --Continue OBS --Discontinue telemetry --EKG for chest pain --DVT prophylaxis: Cross covered/DAPT --Code status: Full code, will reassess --Tylenol ongoing --Diclofenac gel ongoing --Order lidoderm patch on 12 hours and off 12 hours --PT consult to assess mobility/function --May need LAUREEN, however now she is anticoagulated --Low dose hydrocodone for pain --Add movantik Discharge Planning: --SS consult --PT consult --Could benefit from LAUREEN at some point however right now anticoagulation for post SC takes precedence.
[2019-08-11] MEDS ORDERED: Acetaminophen/HYDROcodone 325-5 MG Tab PO PRN (11:23)
[2019-08-11] MEDS ORDERED: Lidocaine 5% 700 MG Patch TOP SCH (11:30)
[2019-08-11] MEDS: Naloxegol Oxalate 25 MG Tab PO SCH (12:25)
[2019-08-11] MEDS: Simvastatin 20 MG Tab PO SCH (21:13)
[2019-08-12] MEDS: Acetaminophen 650 MG Tab.ER PO SCH ×2 (04:03→13:40)
[2019-08-12] MEDS: Diclofenac Sodium 1% Gel 100 GM Tube TOP PRN (04:04)
[2019-08-12] MEDS: Enoxaparin 60 MG/0.6 ML Syringe SUBCUT SCH (06:15)
[2019-08-12] MEDS: Aspirin 81 MG Tab.EC PO SCH (08:54)
[2019-08-12] MEDS: Clopidogrel 75 MG Tab PO SCH (08:54)
[2019-08-12] MEDS: Naloxegol Oxalate 25 MG Tab PO SCH (08:55)
[2019-08-12] MEDS ORDERED: Lidocaine 5% 700 MG Patch TOP SCH (09:00)
[2019-08-12 10:37] VITALS: BP 105/60; PULSE 61
--- NOTE | 2019-08-12 11:02 | PCM.DCSUM1 ---
Discharge Summary - Hospital Course Diagnosis: Stroke: No - Discharge Data Discharge Date: 08/12/19 Discharge Disposition: Home, W Home Health Agency 06 Condition: Fair - Referral to Home Health Date of Face to Face Encounter: 08/12/19 Reason for Homebound Status: Significant osteoarthritis, debilitation with decreased functional status Primary Care Physician: Karrie Nolan MD Skilled Need: --Patient will require nursing, physical therapy including occupational therapy. Patient has high potential for rehospitalization related to her decreased functional mobility, decreased ability to perform self ADL due to increase in pain and significant osteoarthritis. Please help develop an in- home therapy program surrounding her functional status, pain management and symptom control, please assist with providing strength and endurance. Patient is homebound due to her limited strength and endurance due to muscle weakness and pain mainly in her back along with unsteady gait. Assistance with ADL - Patient Summary/Data Consults: Consultations 08/11/19 11:20 Consult to Physical Therapy [PT Evaluation and Treatment] [CONS] Routine - Patient Instructions Diet: Usual Diet as Tolerated Activity: As Tolerated, No Lifting Over 20 Pounds Driving: Do Not Drive Showering/Bathing: May Shower Notify Provider of: Increased Pain Other/Special Instructions: Report any shortness of breath or chest pain - Discharge Plan *PRESCRIPTION DRUG MONITORING PROGRAM REVIEWED*: Not Applicable *COPY OF PRESCRIPTION DRUG MONITORING REPORT IN PATIENT BRENDA: Not Applicable Prescriptions/Med Rec: Acetaminophen [Tylenol Arthritis] 650 mg PO Q6H #180 tablet.er Clopidogrel [Plavix] 75 mg PO DAILY #90 tablet Diclofenac Sodium [Voltaren 1% Gel] 1 gm TOP QID PRN #1 tube PRN Reason: Pain Lidocaine 5% [Lidoderm 5%] 1 patch TOP DAILY #30 patch Home Medications: Home Meds Calcium Carbonate [Tums] 500 mg PO QID PRN 01/23/15 [History] Aspirin [Halfprin] 81 mg PO DAILY 11/14/15 [History] Estrogens, Conjugated [Premarin Vaginal Crm] 0.5 gm VAG Q48H PRN 06/10/17 [ History] Simvastatin [Zocor] 40 mg PO BEDTIME 06/10/17 [History] Diclofenac Sodium [Voltaren 1% Gel] 1 gm TOP BID PRN 05/07/18 [History] Polyethylene Glycol 3350 [MiraLAX] 17 gm PO DAILY PRN 08/05/18 [History] Baclofen 1 - 2 tab PO Q4H PRN 08/10/19 [History] Calcium Carbonate/Vitamin D3 [Calcium 500-Vit D3 200 Tablet] 1 tab PO BEDTIME [History] Cholecalciferol (Vitamin D3) [Vitamin D3] 3,000 units PO DAILY 08/10/19 [History ] Denosumab [Prolia] 60 mg SQ ASDIRECTED 08/10/19 [History] Acetaminophen [Tylenol Arthritis] 650 mg PO Q6H #180 tablet.er 08/12/19 [Rx] Clopidogrel [Plavix] 75 mg PO DAILY #90 tablet 08/12/19 [Rx] Diclofenac Sodium [Voltaren 1% Gel] 1 gm TOP QID PRN #1 tube 08/12/19 [Rx] Ferrous Sulfate 325 mg PO DAILY #0 08/12/19 [Rx] Lidocaine 5% [Lidoderm 5%] 1 patch TOP DAILY #30 patch 08/12/19 [Rx] [facility]Outside] Jeremi Mayorga [facility] PHYSICIAN [Nurse Practitioner] - (I can see her in [place] next week) - Discharge Summary/Plan Comment DC Time >30 min.: Yes Discharge Summary/Plan Comment: Final diagnosis --Non-STEMI --Sick sinus syndrome, --CKD, GFR 48-65, normal creatinine levels, recent NSAID/VAN-2 use --Acute on chronic osteoarthritis with lumbago --lumbar spondylosis --Left arm paresthesia, cervical DDD --Asymptomatic bacteriuria --Debilitation --Hyperlipidemia --Osteopenia; off label Prolia FRAX score less than 20% History 84-year-old female who was seen, evaluated and admitted through the ED when she came in lower abdominal pain and back pain which became severe at 4am. She did develop chest pain and a severe headache in the ambulance at approximately 8am. Nori does have a hx of osteoarthritis with chronic back pain and lumbar spondylosis. Pt reports she woke on the morning of admission and had to call for her to help her out of bed. Pt reported she was able to get to the bathroom, but her pain in her back was so severe--prompting EMS transfer. Pt was complaining of complaining of urinary urgency and low back pain on exam in the ED. Per EMS pt had a brief syncopal episode in route to hospital. Pt denies shortness of breath or neck pain. Prehospital course/Pertinent ED Findings: --VS: afebrile, --Labs: initial troponin 0.08 --EKG: Dual-chamber paced, non-STEMI --CXR, no pneumothorax infiltrate or effusions --Urinary: non-concerning; lactic acid 1.9 and WBC 4.31 Hospital course Fairly well however early on she had significant back pain and debilitation requiring to assist to transfer, this did improve with medication modulation along with hydrocodone Lidoderm patch and gels. She had significant function back upon discharge. He did have a slight elevation in troponin however this normalized. She was given anticoagulation including DAPT. TESFAYE risk, 01/03 intermediate, pretest CAD probability indeterminate, [place]--no c/p. tele, serial cardio-biomarkers were assessed. She had no hemodynamic instability and no further chest pain. His occult therapy evaluated her and she does meet qualification for home health therapy. We catheter was removed. This was placed in the ED however she spontaneously had urine. Medication changes/adjustments upon discharge --Avoid NSAIDs --PLavix 75 mg by mouth daily, newly added. --Continue aspirin, 81 mg --Change Tylenol to scheduled --Change Diclofenac gel to four times a day PRN Disposition/overall plan She will be discharged from [facility] with close follow-up care, This is a [id number] evaluation for H/H, for PT/OT and nursing care. Patient will be discharged from the hospital for home health. Patient will require nursing, physical therapy including occupational therapy. Patient has high potential for rehospitalization related to her decreased functional mobility, decreased ability to perform self ADL due to increase in pain and significant osteoarthritis. Please help develop an in-home therapy program surrounding her functional status, pain management and symptom control, please assist with providing strength and endurance. Patient is homebound due to her limited strength and endurance due to muscle weakness and pain mainly in her back along with unsteady gait. Assistance with ADL - General Info Functional Status: Reports: Pain Controlled - Review of Systems General: Reports: Weakness. Denies: Fatigue, Malaise, Chills HEENT: Reports: No Symptoms Pulmonary: Reports: No Symptoms Cardiovascular: Reports: No Symptoms Gastrointestinal: Reports: No Symptoms Genitourinary: Reports: No Symptoms Musculoskeletal: Reports: Hand Pain, Back Pain Skin: Reports: No Symptoms Neurological: Reports: Paresthesia (Chronic numbness L arm. ) Psychiatric: Reports: No Symptoms - Patient Data Vitals - Most Recent: Last Vital Signs Temp 98.1 F 08/12/19 10:36 Pulse 61 08/12/19 10:36 Resp 18 08/12/19 10:36 BP 105/60 08/12/19 10:36 Pulse Ox 94 L 08/12/19 10:36 Weight - Most Recent: 135 lb I&O - Last 24 hours: Intake & Output 08/11/19 08/12/19 08/12/19 22:59 06:59 14:59 Intake Total 950 300 Output Total 700 300 Balance 250 0 Med Orders - Current: Current Medications Acetaminophen (Tylenol Arthritis Pain) 650 mg PO Q8H [facility] Last Admin: 08/12/19 04:03 Dose: 650 mg Hydrocodone Bitart/Acetaminophen ([place] 325-5 Mg) 1 tab PO Q6H PRN PRN Reason: Pain Last Admin: 08/12/19 02:39 Dose: 1 tab Aspirin (Halfprin) 81 mg PO DAILY [facility] Last Admin: 08/12/19 08:54 Dose: 81 mg Atropine Sulfate (Atropine 0.1 Mg/Ml) 0 mg IVPUSH ASDIRECTED PRN PRN Reason: Heart. Baclofen (Lioresal) 10 - 20 mg PO Q4H PRN PRN Reason: leg cramps Last Admin: 08/11/19 03:05 Dose: 10 mg Clopidogrel Bisulfate (Plavix) 75 mg PO DAILY [facility] Last Admin: 08/12/19 08:54 Dose: 75 mg Diclofenac Sodium (Voltaren 1% Gel) 1 gm TOP QID PRN PRN Reason: Pain Last Admin: 08/12/19 04:04 Dose: 1 applic Enoxaparin Sodium (Lovenox) 60 mg SUBCUT Q12H [facility] Last Admin: 08/12/19 06:15 Dose: 60 mg Epinephrine HCl (Epinephrine 1:10,000) 1 mg IVPUSH ASDIRECTED PRN PRN Reason: Heart. Lidocaine (Lidoderm 5%) 700 mg TOP Q24H [facility] Last Admin: 08/12/19 08:55 Dose: 700 mg Lidocaine HCl (Xylocaine 2%) 0 mg IVPUSH ASDIRECTED PRN PRN Reason: Heart. Miscellaneous Information (Remove Patch) 1 ea TRDERM Q24H [facility] Last Admin: 08/11/19 21:16 Dose: 1 ea Naloxegol (Movantik) 12.5 mg PO DAILY [facility] Last Admin: 08/12/19 08:55 Dose: 12.5 mg Nitroglycerin (Nitrostat) 0.4 mg SL ASDIRECTED PRN PRN Reason: Heart. Polyethylene Glycol (Miralax) 17 gm PO DAILY PRN PRN Reason: Constipation Simvastatin (Zocor) 40 mg PO BEDTIME [facility] Last Admin: 08/11/19 21:13 Dose: 40 mg Discontinued Medications Acetaminophen (Tylenol Arthritis Pain) 650 mg PO Q6HR [facility] Last Admin: 08/10/19 12:28 Dose: 650 mg Aspirin (Aspirin) 81 mg PO ONETIME ONE Stop: 08/10/19 15:03 Last Admin: 08/10/19 15:15 Dose: Not Given Aspirin (Aspirin) 162 mg PO ONETIME ONE Stop: 08/10/19 15:14 Last Admin: 08/10/19 15:15 Dose: 162 mg Clopidogrel Bisulfate (Plavix) 300 mg PO ONETIME ONE Stop: 08/10/19 15:07 Last Admin: 08/10/19 15:15 Dose: 300 mg Enoxaparin Sodium (Lovenox) 30 mg SUBCUT ONETIME ONE Stop: 08/10/19 15:04 Last Admin: 08/10/19 15:30 Dose: 30 mg Enoxaparin Sodium (Lovenox) 80 mg SUBCUT Q12H [facility] Furosemide (Lasix) 10 mg IVPUSH NOW ONE Stop: 08/10/19 16:56 Last Admin: 08/10/19 17:11 Dose: 10 mg Hydromorphone HCl (Dilaudid) 0.5 mg IVPUSH ONETIME ONE Stop: 08/10/19 09:14 Last Admin: 08/10/19 09:22 Dose: 0.5 mg Sodium Chloride (Normal Saline) Confirm Administered Dose 1,000 mls @ as directed .ROUTE .STK-MED ONE Stop: 08/10/19 09:29 Last Admin: 08/10/19 09:37 Dose: Not Given Sodium Chloride (Normal Saline) 1,000 mls @ 125 mls/hr IV ASDIRECTED [facility] Last Infusion: 08/10/19 10:04 Dose: 125 mls/hr Lidocaine (Lidoderm 5%) 700 mg TOP Q24H GRADY Last Admin: 08/11/19 12:25 Dose: 700 mg Ondansetron HCl (Zofran) 4 mg IVPUSH ONETIME ONE Stop: 08/10/19 09:14 Last Admin: 08/10/19 09:19 Dose: 4 mg Sodium Chloride (Saline Flush) 10 ml FLUSH Q8HR PRN PRN Reason: keep vein open Last Admin: 08/10/19 09:20 Dose: 10 ml - Exam Quality Assessment: Denies: Supplemental Oxygen General: Reports: Alert, Oriented Neck: Reports: Supple Lungs: Reports: Clear to Auscultation, Normal Respiratory Effort Cardiovascular: Reports: Regular Rate, Regular Rhythm Back Exam: Reports: Paraspinal Tenderness. Denies: CVA Tenderness (L), CVA Tenderness (R), Muscle Spasm Extremities: No: Pedal Edema Skin: Reports: Warm, Dry, Intact Neurological: Reports: Normal Speech, Normal Tone, Strength Equal Bilateral. Denies: Sensation Intact (Chronic numbness and tingling left arm) Psy/Mental Status: Reports: Alert. Denies: Depressed
== END 2019-08-12 13:35 | disposition home health service (06) ==
LOC: KA.ED 08:57 → KA.MS 10:26 → KA.ED 10:30
PROVIDERS: ADMIT Nurse Practitioner Family; ATTEND Nurse Practitioner Family
DX: I21.4 Non-ST elevation (NSTEMI) myocardial infarction (principal); I49.5 Sick sinus syndrome; N18.9 Chronic kidney disease, unspecified; M47.816 Spondylosis without myelopathy or radiculopathy, lumbar region; M50.30 Other cervical disc degeneration, unspecified cervical region; R82.71 Bacteriuria; R53.81 Other malaise; E78.5 Hyperlipidemia, unspecified; M85.80 Other specified disorders of bone density and structure, unspecified site; E78.00 Pure hypercholesterolemia, unspecified; K21.9 Gastro-esophageal reflux disease without esophagitis; M81.0 Age-related osteoporosis without current pathological fracture; Z88.8 Allergy status to other drugs, medicaments and biological substances; Z88.2 Allergy status to sulfonamides; Z88.5 Allergy status to narcotic agent; Z79.899 Other long term (current) drug therapy; Z79.82 Long term (current) use of aspirin
CPT/HCPCS: 36415; 71045; 80048; 80053; 81001; 82550; 82553; 83605; 83880; 84484; 85025; 87086; 93005; 96361; 96372; 96374; 96375; 97161; 99284; 99285; A9270; G0378; J1170; J1650; J1940; J2405; J7030

== ENCOUNTER 2019-11-26 09:21 | Emergency (ER) | payer MEDICARE, BC ==
[2019-11-26] MEDS ORDERED: Meperidine PF 50 MG/ML Syringe IM ONE (09:36)
[2019-11-26 10:10] VITALS: BP 135/78; PULSE 59
[2019-11-26 10:17] LABS: ANION GAP 14.8 mmol/L (5-15); CHLORIDE,CL 109 mmol/L (98-115); SODIUM,NA 146 mmol/L (136-145)
--- NOTE | 2019-11-26 10:36 | CR ---
[id number] RAD/RAD Lumbar Spine 2-3V EXAM: AP AND LATERAL LUMBAR SPINE. INDICATION: Acute chronic low back pain. COMPARISON: No previous similar exam is available for comparison. FINDINGS: No fracture or subluxation is seen. Mild multilevel degenerative changes of the lumbar spine including loss of disc space height most pronounced at L5-S1. Additionally there is multi level endplate osteophytosis and facet arthropathy. The pedicles are intact. Postsurgical changes following total right hip arthroplasty. IMPRESSION: No acute fracture or subluxation Edward Ferreira DO 11/26/19 1035 Thank you for allowing us to participate in the care of your patient.
[2019-11-26] MEDS ORDERED: Ciprofloxacin 500 MG Tab PO ONE (10:39)
--- NOTE | 2019-11-26 10:53 | EDM.PDOC ---
ED HPI GENERAL MEDICAL PROBLEM - General Chief Complaint: General Stated Complaint: PX IN R PELVIC AREA/LB Time Seen by Provider: 11/26/19 09:25 Source of Information: Reports: Patient, RN History Limitations: Reports: No Limitations - History of Present Illness INITIAL COMMENTS - FREE TEXT/NARRATIVE: 84-year-old female is been brought to the emergency room for evaluation of acute on chronic low back pain and right pelvic pain. She is brought in by EMS today when she stated that she went to the bathroom today and had severe pain in her low back radiating to her groin. She is having difficulty ambulating. She has long history of low back pain and has had a recent consultation set up for her with pain management. She only takes Tylenol and Ultram on occasion. She has avoided the NSAIDs due to elevated the kidney functions with these medications in the past. She's had epidural injections in the past. She denies any loss of bowel or bladder control. She denies dysuria, hematuria. She's not had any fever or chills. She denies saddle paresthesias. Right Groin Pain Score (Numeric/FACES): 8 - Related Data Allergies Allergy/AdvReac Type Severity Reaction Status Date / Time donepezil HCl [From Aricept] Allergy Nausea and Verified 05/11/18 08:16 Vomiting midazolam HCl [From Versed] Allergy Seizure Verified 05/11/18 08:16 Sulfa (Sulfonamide Allergy Itching Verified 05/11/18 08:16 Antibiotics) tramadol Allergy Itching Verified 08/10/19 10:24 intrascalene injection Allergy Intermediate hard time Uncoded 05/07/18 09:29 waking up Home Meds: Home Meds Calcium Carbonate [Tums] 500 mg PO QID PRN 01/23/15 [History] Aspirin [Halfprin] 81 mg PO DAILY 11/14/15 [History] Estrogens, Conjugated [Premarin Vaginal Crm] 0.5 gm VAG Q48H PRN 06/10/17 [ History] Simvastatin [Zocor] 40 mg PO BEDTIME 06/10/17 [History] Diclofenac Sodium [Voltaren 1% Gel] 1 gm TOP BID PRN 05/07/18 [History] polyethylene glycoL 3350 [MiraLAX] 17 gm PO DAILY PRN 08/05/18 [History] Baclofen 1 - 2 tab PO Q4H PRN 08/10/19 [History] Calcium Carbonate/Vitamin D3 [Calcium 500-Vit D3 200 Tablet] 1 tab PO BEDTIME [History] Cholecalciferol (Vitamin D3) [Vitamin D3] 3,000 units PO DAILY 08/10/19 [History ] Denosumab [Prolia] 60 mg SQ ASDIRECTED 08/10/19 [History] Acetaminophen [Tylenol Arthritis] 650 mg PO Q6H #180 tablet.er 08/12/19 [Rx] Clopidogrel [Plavix] 75 mg PO DAILY #90 tablet 08/12/19 [Rx] Diclofenac Sodium [Voltaren 1% Gel] 1 gm TOP QID PRN #1 tube 08/12/19 [Rx] Ferrous Sulfate 325 mg PO DAILY #0 08/12/19 [Rx] Lidocaine 5% [Lidoderm 5%] 1 patch TOP DAILY #30 patch 08/12/19 [Rx] Past Medical History HEENT History: Reports: Cataract, Hard of Hearing, Impaired Vision Cardiovascular History: Reports: High Cholesterol, Pacemaker, Syncope Respiratory History: Reports: None Gastrointestinal History: Reports: GERD Genitourinary History: Reports: None Other Genitourinary History: dribbles 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: Musculoskeletal History: Reports: Arthritis, Back Pain, Chronic, Osteoarthritis , Osteoporosis, RA Other Musculoskeletal History: Osteopenia, lumbar spinalosis Neurological History: Reports: Seizure, Vertigo Psychiatric History: Reports: None Endocrine/Metabolic History: Reports: Osteopenia, Osteoporosis Hematologic History: Reports: Anesthesia Reaction, Blood Transfusion(s) Immunologic History: Reports: None Oncologic (Cancer) History: Reports: None Dermatologic History: Reports: None - Infectious Disease History Infectious Disease History: Reports: Chicken Pox, Measles, Mumps, Pertussis ( Whooping Cough), Rubella - Past Surgical History Head Surgeries/Procedures: Reports: None HEENT Surgical History: Reports: Cataract Surgery Cardiovascular Surgical History: Reports: None GI Surgical History: Reports: None Female Surgical History: Reports: None Endocrine Surgical History: Reports: None Neurological Surgical History: Reports: Other (See Below) Other Neurological Surgeries/Procedures: Coritisone injection to lumbar. Musculoskeletal Surgical History: Reports: Shoulder Surgery Dermatological Surgical History: Reports: None Social & Family History - Family History Family Medical History: Noncontributory Cardiac: Reports: Hypertension, [place] Respiratory: Reports: None GI: Reports: None : Reports: None OBGYN: Reports: None Musculoskeletal: Reports: Arthritis Neurological: Reports: None - Tobacco Use Smoking Status *Q: Never Smoker Second Hand Smoke Exposure: Yes - Caffeine Use Caffeine Use: Reports: Soda, Tea - Recreational Drug Use Recreational Drug Use: No ED ROS GENERAL - Review of Systems Review Of Systems: See Below Constitutional: Denies: Fever, Chills, Diaphoresis HEENT: Reports: No Symptoms Respiratory: Reports: No Symptoms Cardiovascular: Reports: No Symptoms Endocrine: Reports: No Symptoms GI/Abdominal: Denies: Abdominal Pain : Denies: Dysuria, Flank Pain, Frequency, Hematuria, Incontinence, Pain, Urgency Musculoskeletal: Reports: Back Pain Skin: Reports: No Symptoms Neurological: Reports: Difficulty Walking, Weakness ED EXAM, GENERAL - Physical Exam Exam: See Below Exam Limited By: No Limitations General Appearance: Alert, WD/WN, No Apparent Distress Eye Exam: Bilateral Eye: EOMI Ears: Hearing Grossly Normal Nose: Normal Inspection Throat/Mouth: Normal Voice, No Airway Compromise Head: Atraumatic, Normocephalic Neck: Supple Respiratory/Chest: Lungs Clear, Normal Breath Sounds Cardiovascular: Regular Rate, Rhythm GI/Abdominal: Soft, Non-Tender Back Exam: Normal Inspection, Paraspinal Tenderness. No: CVA Tenderness (L), CVA Tenderness (R), Vertebral Tenderness Extremities: Normal Inspection, Normal Range of Motion, Non-Tender, No Pedal Edema, Normal Capillary Refill, Other (Strength are 5 out of 5 with hip flexion extension ankle dorsal plantar flexion great toe extension bilaterally. She has negative lateral sign with internal/external rotation her hips bilaterally she has no pain in her hip with a straight leg raise she has no radicular symptoms with straight leg raise. Deep tendon reflexes are 2+ at the knees 1+ at the ankles and symmetric toes are downgoing clonus is absent) Neurological: Alert, Oriented, CN II-XII Intact, Normal Cognition, Normal Reflexes, No Motor/Sensory Deficits. No: Sensory/Motor Deficit Psychiatric: Normal Affect, Normal Mood Skin Exam: Warm, Dry, Intact, Normal Color, No Rash Lymphatic: No Adenopathy Course - Vital Signs Last Recorded V/S: Last Vital Signs Temp 97.0 F 11/26/19 09:25 Pulse 59 L 11/26/19 09:25 Resp 20 11/26/19 09:25 BP 135/78 11/26/19 09:25 Pulse Ox 100 11/26/19 09:25 - Orders/Labs/Meds Orders: Active Orders 24 hr Category Date Time Status CULTURE URINE [RM] Stat Lab 11/26/19 10:32 Ordered Labs: Laboratory Tests 11/26/19 11/26/19 Range/Units 09:45 09:55 Sodium 146 H (136-145) mmol/L Potassium 4.6 (3.3-5.3) mmol/L Chloride 109 (98-115) mmol/L Carbon Dioxide 26.8 (21.0-32.0) mmol/L Anion Gap 14.8 (5-15) mmol/L BUN 15 (6-25) mg/dL Creatinine 0.84 (0.51-1.17) mg/dL Est Cr Clr Drug Dosing 42.15 mL/min Estimated GFR (MDRD) > 60 mL/min Glucose 97 (75 - 99) mg/dL Calcium 8.8 (8.7-10.3) mg/dL Specimen Type Urinvoid Urine Color Light yellow (YELLOW) Urine Appearance Slightly cloudy H (CLEAR) Urine pH 8.5 (5.0-9.0) Ur Specific [place] 1.015 (1.005-1.030) Urine Protein Negative (NEGATIVE) mg/dL Urine Glucose (UA) Negative (NEGATIVE) mg/dL Urine Ketones Negative (NEGATIVE) mg/dL Urine Occult Blood Trace-intact H (NEGATIVE) Urine Nitrite Negative (NEGATIVE) Urine Bilirubin Negative (NEGATIVE) Urine Urobilinogen 0.2 (0.2-1.0) E.U./dL Ur Leukocyte Esterase Moderate H (NEGATIVE) Urine RBC 0-5 (0-5) /HPF Urine WBC >100 H (0-5) /HPF Ur Epithelial Cells Moderate H /LPF Urine Bacteria Moderate H (NONE TO FEW) /HPF Meds: Medications Discontinued Medications Generic Name Dose Route Start Last Admin Trade Name Freq PRN Reason Stop Dose Admin Ciprofloxacin 500 mg 11/26/19 10:39 Ciprofloxacin Hcl PO 11/26/19 10:40 ONETIME ONE Meperidine HCl 50 mg 11/26/19 09:36 Demerol IM 11/26/19 09:37 ONETIME ONE - Radiology Interpretation Free Text/Narrative:: X-rays AP lateral lumbar spine from 11/26/19 findings: -No fracture or subluxation is seen. Multi level degenerative changes lumbar spine including loss of disc space height most pronounced at L5-S1. Additionally there is multilevel endplate [id number] and first set arthropathy. The pedicles are intact. Surgical changes following total right hip arthroplasty. Impression: -No acute fracture or subluxation - Re-Assessments/Exams Free Text/Narrative Re-Assessment/Exam: 11/26/19 10:57 Patient had significant improvement of her pain with IM injection of Demerol 50 mg guarding her low back pain Departure - Departure Time of Disposition: 10:57 Disposition: Home, Self-Care 01 Condition: Good Clinical Impression: Lumbar spondylosis Chronic lower back pain Qualifiers: Back pain laterality: bilateral Sciatica presence: without sciatica Qualified Code(s): M54.5 - Low back pain; G89.29 - Other chronic pain Urinary tract infection Qualifiers: Urinary tract infection type: acute cystitis Hematuria presence: without hematuria Qualified Code(s): N30.00 - Acute cystitis without hematuria - Discharge Information Instructions: Urinary Tract Infection, Adult, Chronic Back Pain, [id number] Referrals: Anusha Nolan MD [Primary Care Provider] - Forms: ED Department Discharge Additional Instructions: 1. Cipro 250 mg twice a day 3 days 2. Ultram 50 mg 1 by mouth every 6 hours when necessary for pain 3. Heating pad for low back pain 4. Rest 5. Oral hydration drink plenty of water. 6. Follow-up next week with her primary care. Culture for urine has been ordered Sepsis Event Note - Evaluation Sepsis Screening Result: No Definite Risk - Focused Exam Vital Signs: Vital Signs Temp Pulse Resp BP Pulse Ox 11/26/19 09:25 97.0 F 59 L 20 135/78 100 Date Exam was Performed: 11/26/19 Time Exam was Performed: 10:47 - My Orders Last 24 Hours: My Active Orders 11/26/19 10:32 CULTURE URINE [RM] Stat - Assessment/Plan Last 24 Hours: My Active Orders 11/26/19 10:32 CULTURE URINE [RM] Stat Assessment:: Right low back pain Lumbar spondylosis Urinary tract infection Plan: 1. Cipro 250 mg twice a day 3 days 2. Ultram 50 mg 1 by mouth every 6 hours when necessary for pain 3. Heating pad for low back pain 4. Rest 5. Oral hydration drink plenty of water. 6. Follow-up next week with her primary care. Culture for urine has been ordered
[2019-11-26] MEDS ORDERED: Ciprofloxacin 500 MG Tab ONE (10:56)
== END 2019-11-26 12:45 | disposition home or self-care (01) ==
LOC: KA.ED 09:21
DX: M47.816 Spondylosis without myelopathy or radiculopathy, lumbar region (principal); N30.00 Acute cystitis without hematuria; G89.29 Other chronic pain; Z88.8 Allergy status to other drugs, medicaments and biological substances; Z88.2 Allergy status to sulfonamides; Z79.899 Other long term (current) drug therapy; Z79.82 Long term (current) use of aspirin
CPT/HCPCS: 36415; 72100; 80048; 81001; 87086; 96372; 99284; A9270; J2175

== ENCOUNTER 2020-11-29 12:28 | Observation (INO) | payer MEDICARE, BC ==
[2020-11-29] MEDS ORDERED: Sodium Chloride 0.9% 10 ML Syringe FLUSH PRN ×2 (12:42→14:12)
--- NOTE | 2020-11-29 13:01 | EDM.PDOC ---
ED HPI GENERAL MEDICAL PROBLEM - General Chief Complaint: Cardiovascular Problem Stated Complaint: CHEST PAIN Time Seen by Provider: 11/29/20 12:30 Source of Information: Reports: Patient, EMS, Provider History Limitations: Reports: No Limitations - History of Present Illness INITIAL COMMENTS - FREE TEXT/NARRATIVE: 85 YO WF PRESENTS TO ER BY EMS AFTER BEING SEEN IN CLINIC TODAY FOR EPISODE OF CONFUSION AND CHEST PAIN. PT REPORTS THIS AM SHE WAS WRITING LETTERS AND NOTICED SHE WAS WRITING ALL OVER THE PAPER. PT REPORTS AFTER THIS OCCURRED SHE DEVELOPED AN EPISODE OF MILD CHEST PAIN. PT REPORTS EPISODE OF DOUBLE VISION FOLLOWED PROMPTING CLINIC EVALUATION. PT WAS BROUGHT TO CLINIC BY FRIEND BUT NEVER SEEN DUE TO COMPLAINTS THE PROVIDER CALLED EMS AND PT WAS TRANSFERRED TO [facility] FOR EVALUATION. PT CURRENTLY CHEST PAIN FREE. PT DENIES CONFUSION, ATAXIA, SLURRED SPEECH, OR BLURRED/DOUBLE VISION. PT REPORTS NO RECENT ILLNESSES. NO COUGH/CONGESTION/OR SHORTNESS OF BREATH. PT REPORTS DYSURIA AND URINARY FREQUENCY OVER THE LAST FEW DAYS. PT DENIES NAUSEA/VOMITING OR DIARRHEA. Onset: Today Location: Reports: Chest, Generalized Quality: Reports: Dull Severity: Mild Improves with: Reports: None Worsens with: Reports: None Associated Symptoms: Reports: Confusion, Chest Pain, Malaise, Weakness. Denies: Cough, cough w sputum, Fever/Chills, Headaches, Loss of Appetite, Nausea/Vomiting, Seizure, Shortness of Breath, Syncope - Related Data Allergies Allergy/AdvReac Type Severity Reaction Status Date / Time donepezil HCl [From Aricept] Allergy Nausea and Verified 11/29/20 13:24 Vomiting midazolam HCl [From Versed] Allergy Seizure Verified 11/29/20 13:24 NSAIDS (Non-Steroidal Allergy Other Verified 11/29/20 13:24 Anti-Inflamma Sulfa (Sulfonamide Allergy Itching Verified 11/29/20 13:24 Antibiotics) tramadol Allergy Itching Verified 11/29/20 13:24 intrascalene injection Allergy Intermediate hard time Uncoded 11/29/20 13:24 waking up Home Meds: Home Meds Simvastatin [Zocor] 40 mg PO BEDTIME 06/10/17 [History] Calcium Carbonate/Vitamin D3 [Calcium 500-Vit D3 200 Tablet] 1 tab PO BEDTIME 08/10/19 [History] Cholecalciferol (Vitamin D3) [Vitamin D3] 3,000 units PO DAILY 08/10/19 [History] Denosumab [Prolia] 60 mg SQ ASDIRECTED 08/10/19 [History] Acetaminophen [Tylenol Arthritis] 650 mg PO Q6H #180 tablet.er 08/12/19 [Rx] Clopidogrel [Plavix] 75 mg PO DAILY #90 tablet 08/12/19 [Rx] Lidocaine 5% [Lidoderm 5%] 1 patch TOP DAILY #30 patch 08/12/19 [Rx] Ferrous Sulfate 325 mg PO DAILY 11/26/19 [History] FLUoxetine [PROzac] 40 mg PO DAILY 11/29/20 [History] Oxybutynin Chloride [Ditropan Xl] 10 mg PO DAILY 11/29/20 [History] QUEtiapine [SEROquel] 25 mg PO BEDTIME 11/29/20 [History] hydrOXYzine pamoate [Vistaril] 25 mg PO Q6H PRN 11/29/20 [History] Past Medical History HEENT History: Reports: Cataract, Hard of Hearing, Impaired Vision Cardiovascular History: Reports: High Cholesterol, Pacemaker, Syncope Respiratory History: Reports: None Gastrointestinal History: Reports: GERD Genitourinary History: Reports: None Other Genitourinary History: dribbles CONCERT MANAGER History: Reports: Musculoskeletal History: Reports: Arthritis, Back Pain, Chronic, Osteoarthritis, Osteoporosis, RA Other Musculoskeletal History: Osteopenia, lumbar spinalosis Neurological History: Reports: Seizure, Vertigo Psychiatric History: Reports: None Endocrine/Metabolic History: Reports: Osteopenia, Osteoporosis Hematologic History: Reports: Anesthesia Reaction, Blood Transfusion(s) Immunologic History: Reports: None Oncologic (Cancer) History: Reports: None Dermatologic History: Reports: None - Infectious Disease History Infectious Disease History: Reports: Chicken Pox, Measles, Mumps, Pertussis (Whooping Cough), Rubella - Past Surgical History Head Surgeries/Procedures: Reports: None HEENT Surgical History: Reports: Cataract Surgery Cardiovascular Surgical History: Reports: None GI Surgical History: Reports: None Female Surgical History: Reports: None Endocrine Surgical History: Reports: None Neurological Surgical History: Reports: Other (See Below) Other Neurological Surgeries/Procedures: Coritisone injection to lumbar. Musculoskeletal Surgical History: Reports: Shoulder Surgery Dermatological Surgical History: Reports: None Social & Family History - Family History Family Medical History: No Pertinent Family History Cardiac: Reports: Hypertension, OR Respiratory: Reports: None GI: Reports: None : Reports: None OBGYN: Reports: None Musculoskeletal: Reports: Arthritis Neurological: Reports: None - Caffeine Use Caffeine Use: Reports: Soda, Tea ED ROS GENERAL - Review of Systems Review Of Systems: See Below Constitutional: Reports: No Symptoms, Weakness HEENT: Denies: Vertigo Respiratory: Reports: No Symptoms Cardiovascular: Reports: Chest Pain Endocrine: Reports: No Symptoms GI/Abdominal: Reports: No Symptoms : Reports: Dysuria, Frequency Musculoskeletal: Reports: No Symptoms Skin: Reports: No Symptoms Neurological: Reports: Confusion, Weakness. Denies: Dizziness, Headache, Numbness, Paresthesia, Pre-Existing Deficit, Seizure, Syncope, Tingling, Tremors, Trouble Speaking, Difficulty Walking, Change in Speech, Gait Disturbance Psychiatric: Reports: No Symptoms Hematologic/Lymphatic: Reports: No Symptoms Immunologic: Reports: No Symptoms ED EXAM, GENERAL - Physical Exam Exam: See Below Exam Limited By: No Limitations General Appearance: Alert, WD/WN, No Apparent Distress Eye Exam: Bilateral Eye: EOMI, PERRL Head: Atraumatic, Normocephalic Neck: Normal Inspection, Supple, Non-Tender, Full Range of Motion Respiratory/Chest: No Respiratory Distress, Lungs Clear, Normal Breath Sounds, No Accessory Muscle Use, Chest Non-Tender Cardiovascular: Normal Peripheral Pulses, Regular Rate, Rhythm, No Edema, No Gallop, No JVD, No Murmur, No Rub GI/Abdominal: Normal Bowel Sounds, Soft, Non-Tender, No Organomegaly, No Distention, No Abnormal Bruit, No Mass Back Exam: Normal Inspection, Full Range of Motion, NT Extremities: Normal Inspection, Normal Range of Motion, Non-Tender, Normal Capillary Refill, No Pedal Edema Neurological: Alert, Oriented, CN II-XII Intact, Normal Cognition, Normal Reflexes, No Motor/Sensory Deficits Psychiatric: Normal Affect, Normal Mood Skin Exam: Warm, Dry, Intact, Normal Color, No Rash Lymphatic: No Adenopathy #1 Interpretation EKG Date: 11/29/20 Time: 12:35 Rhythm: NSR Rate (Beats/Min): 60 [place]: Normal P-Wave: Present QRS: Normal ST-T: Normal QT: Normal Comparison: No Change EKG Interpretation Comments: 100% AV PACED Course - Vital Signs Last Recorded V/S: Last Vital Signs Temp 97.1 F 11/29/20 14:05 Pulse 66 11/29/20 14:05 Resp 15 11/29/20 14:05 BP 102/33 L 11/29/20 14:05 Pulse Ox 95 11/29/20 14:05 - Orders/Labs/Meds Orders: Active Orders 24 hr Category Date Time Status EKG Documentation Completion [RC] ASDIRECTED Care 11/29/20 12:43 Active Peripheral IV Care [RC] . DIRECTED Care 11/29/20 12:43 Active Sodium Chloride 0.9% [Saline Flush] Med 11/29/20 12:42 Active 10 ml FLUSH Q8HR PRN Peripheral IV Insertion Adult [OM.PC] Routine Oth 11/29/20 12:42 Ordered EKG 12 Lead [EK] Stat Ther 11/29/20 12:42 Ordered Medication Orders Sodium Chloride (Saline Flush) 10 ml FLUSH Q8HR PRN PRN Reason: keep vein open Labs: Laboratory Tests 11/29/20 11/29/20 11/29/20 Range/Units 12:40 12:40 12:40 WBC 4.89 L (5.00-10.00) 10^3/uL RBC 3.55 L (3.80-5.50) 10^6/uL Hgb 9.2 L D (12.0-16.0) g/dL Hct 30.1 L (37.0-47.0) % MCV 84.8 D (82.0-92.0) fL MCH 25.9 L (27.0-31.0) pg MCHC 30.6 L (32.0-36.0) g/dL RDW 15.7 H (11.5-14.5) % Plt Count 289 D (150-400) 10^3/uL MPV 10.2 (7.4-10.4) fL Immature Gran % (Auto) 0.2 (0.0-5.0) % Neut % (Auto) 65.4 (50.0-70.0) % Lymph % (Auto) 18.2 L (20.0-40.0) % Rich % (Auto) 11.7 H (2.0-8.0) % Eos % (Auto) 4.3 H (1.0-3.0) % Baso % (Auto) 0.2 (0.0-1.0) % Neut # (Auto) 3.20 (2.50-7.00) 10^3/uL Lymph # (Auto) 0.89 L (1.00-4.00) 10^3/uL Rich # (Auto) 0.57 (0.10-0.80) 10^3/uL Eos # (Auto) 0.21 (0.10-0.30) 10^3/uL Baso # (Auto) 0.01 (0.00-0.10) 10^3/uL Immature Gran # (Auto) 0.01 (0.00-0.50) 10^3/uL Sodium 138 (136-145) mmol/L Potassium 4.2 (3.5-5.1) mmol/L Chloride 103 (98-107) mmol/L Carbon Dioxide 24.6 (21.0-32.0) mmol/L Anion Gap 14.6 (5-15) mmol/L BUN 25 H (7-18) mg/dL Creatinine 0.97 (0.51-1.17) mg/dL Est Cr Clr Drug Dosing TNP Estimated GFR (MDRD) 55 mL/min Glucose 91 (70-140) mg/dL Lactic Acid 1.0 (0.4-2.0) mmol/L Calcium 9.2 (8.7-10.3) mg/dL Total Bilirubin 0.2 (0.2-1.0) mg/dL AST 17 (15-37) U/L ALT 23 (14-63) U/L Alkaline Phosphatase 77 (46-116) U/L Creatine Kinase 111 (26-276) U/L CK-MB (CK-2) 3.25 (0.00-3.60) ng/mL Troponin I < 0.017 (0.000-0.056) ng/mL Total Protein 6.7 (6.4-8.2) g/dL Albumin 3.34 L (3.40-5.00) g/dL Lipase 91 (73-393) U/L Specimen Type Urine Color (YELLOW) Urine Appearance (CLEAR) Urine pH (5.0-9.0) Ur Specific [place] (1.005-1.030) Urine Protein (NEGATIVE) mg/dL Urine Glucose (UA) (NEGATIVE) mg/dL Urine Ketones (NEGATIVE) mg/dL Urine Occult Blood (NEGATIVE) Urine Nitrite (NEGATIVE) Urine Bilirubin (NEGATIVE) Urine Urobilinogen (0.2-1.0) E.U./dL Ur Leukocyte Esterase (NEGATIVE) Urine RBC (0-5) /HPF Urine WBC (0-5) /HPF Ur Epithelial Cells /LPF Urine Bacteria (NONE TO FEW) /HPF 11/29/20 Range/Units 13:00 WBC (5.00-10.00) 10^3/uL RBC (3.80-5.50) 10^6/uL Hgb (12.0-16.0) g/dL Hct (37.0-47.0) % MCV (82.0-92.0) fL MCH (27.0-31.0) pg MCHC (32.0-36.0) g/dL RDW (11.5-14.5) % Plt Count (150-400) 10^3/uL MPV (7.4-10.4) fL Immature Gran % (Auto) (0.0-5.0) % Neut % (Auto) (50.0-70.0) % Lymph % (Auto) (20.0-40.0) % Rich % (Auto) (2.0-8.0) % Eos % (Auto) (1.0-3.0) % Baso % (Auto) (0.0-1.0) % Neut # (Auto) (2.50-7.00) 10^3/uL Lymph # (Auto) (1.00-4.00) 10^3/uL Rich # (Auto) (0.10-0.80) 10^3/uL Eos # (Auto) (0.10-0.30) 10^3/uL Baso # (Auto) (0.00-0.10) 10^3/uL Immature Gran # (Auto) (0.00-0.50) 10^3/uL Sodium (136-145) mmol/L Potassium (3.5-5.1) mmol/L Chloride (98-107) mmol/L Carbon Dioxide (21.0-32.0) mmol/L Anion Gap (5-15) mmol/L BUN (7-18) mg/dL Creatinine (0.51-1.17) mg/dL Est Cr Clr Drug Dosing Estimated GFR (MDRD) mL/min Glucose (70-140) mg/dL Lactic Acid (0.4-2.0) mmol/L Calcium (8.7-10.3) mg/dL Total Bilirubin (0.2-1.0) mg/dL AST (15-37) U/L ALT (14-63) U/L Alkaline Phosphatase (46-116) U/L Creatine Kinase (26-276) U/L CK-MB (CK-2) (0.00-3.60) ng/mL Troponin I (0.000-0.056) ng/mL Total Protein (6.4-8.2) g/dL Albumin (3.40-5.00) g/dL Lipase (73-393) U/L Specimen Type [place] Urine Color Yellow (YELLOW) Urine Appearance Slightly cloudy H (CLEAR) Urine pH 5.5 (5.0-9.0) Ur Specific [place] 1.025 (1.005-1.030) Urine Protein Negative (NEGATIVE) mg/dL Urine Glucose (UA) Negative (NEGATIVE) mg/dL Urine Ketones Negative (NEGATIVE) mg/dL Urine Occult Blood Trace-intact H (NEGATIVE) Urine Nitrite Negative (NEGATIVE) Urine Bilirubin Negative (NEGATIVE) Urine Urobilinogen 0.2 (0.2-1.0) E.U./dL Ur Leukocyte Esterase Negative (NEGATIVE) Urine RBC 0-5 (0-5) /HPF Urine WBC 0-5 (0-5) /HPF Ur Epithelial Cells Few /LPF Urine Bacteria Few (NONE TO FEW) /HPF Meds: Medications Generic Name Dose Route Start Last Admin Trade Name Freq PRN Reason Stop Dose Admin Sodium Chloride 10 ml 11/29/20 12:42 Saline Flush FLUSH Q8HR PRN keep vein open Departure - Departure Time of Disposition: 14:10 Disposition: Refer to Observation Condition: Good Clinical Impression: Confusion Chest pain Qualifiers: Chest pain type: unspecified Qualified Code(s): R07.9 - Chest pain, unspecified Referrals: Shadia Wang, [facility]TER [Primary Care Provider] - Forms: ED Department Discharge Sepsis Event Note (ED) - Focused Exam Vital Signs: Vital Signs Temp Pulse Resp BP Pulse Ox 11/29/20 14:05 97.1 F 66 15 102/33 L 95 11/29/20 13:46 61 19 105/35 L 99 11/29/20 13:35 61 18 125/54 L 98 11/29/20 13:15 63 12 135/58 L 99 11/29/20 13:11 97.1 F 60 15 134/71 97 11/29/20 13:00 62 16 128/63 97 11/29/20 12:45 61 15 137/61 97 - My Orders Last 24 Hours: My Active Orders 11/29/20 12:42 Sodium Chloride 0.9% [Saline Flush] 10 ml FLUSH Q8HR PRN Peripheral IV Insertion Adult [OM.PC] Routine EKG 12 Lead [EK] Stat 11/29/20 12:43 EKG Documentation Completion [RC] ASDIRECTED Peripheral IV Care [RC] . DIRECTED - Assessment/Plan Last 24 Hours: My Active Orders 11/29/20 12:42 Sodium Chloride 0.9% [Saline Flush] 10 ml FLUSH Q8HR PRN Peripheral IV Insertion Adult [OM.PC] Routine EKG 12 Lead [EK] Stat 11/29/20 12:43 EKG Documentation Completion [RC] ASDIRECTED Peripheral IV Care [RC] . DIRECTED Assessment:: 1. [id number] TIA 2. CHEST PAIN- RESOLVED-POSSIBLE ANGINA 3. ANEMIA- OUT PATIENT WORKUP Plan: 1. ADMIT TO MEDICINE- [place] HERNADEZ- OBSERVATION 2. ASA/NITRO 3. TROP I Q6 X 3 4. SUPPORTIVE CARE 5. REPEAT HGB AND OUTPATIENT WORK UP PER [place] JC
--- NOTE | 2020-11-29 13:05 | CT ---
[id number] CT/CT Head WO IV EXAM: CT Head WO IV CLINICAL DATA: CHANGE IN MENTAL STATUS COMPARISON: CORRELATION IS MADE WITH MAY 24, 2016 FINDINGS: There is no mass or mass effect. There is no hemorrhage or hydrocephalus. There are no extra-axial fluid collections. There are no sites of abnormal attenuation. IMPRESSION: NO PLAIN CT EVIDENCE OF ACUTE INTRACRANIAL PROCESS. Blaine Servin MD 11/29/20 [id number] Thank you for allowing us to participate in the care of your patient.
--- NOTE | 2020-11-29 13:06 | CR ---
[id number] RAD/RAD Chest PA or AP 1V EXAM: RAD Chest PA or AP 1V INDICATION: CHEST PAIN. COMPARISON: August 10, 2019. DISCUSSION: Left chest wall cardiac conduction device. Cardiomediastinal silhouette is stable in size and contour. No infiltrate, effusion, pneumothorax, or edema. Pulmonary hyperinflation. Postsurgical changes following prior right-sided rotator cuff repair. IMPRESSION: No acute cardiopulmonary abnormality. Edward Ferreira DO 11/29/20 [id number] Thank you for allowing us to participate in the care of your patient.
[2020-11-29 13:15] LABS: ANION GAP 14.6 mmol/L (5-15); CHLORIDE,CL 103 mmol/L (98-107); SODIUM,NA 138 mmol/L (136-145)
[2020-11-29] MEDS ORDERED: Aspirin 81 MG Tab.Chew PO ONE (14:37)
[2020-11-29] MEDS ORDERED: Acetaminophen 650 MG Tab.ER PO PRN (16:00)
[2020-11-29] MEDS: Sodium Chloride 0.9% 1,000 ML IV SCH (19:00)
[2020-11-29] MEDS: Enoxaparin 40 MG/0.4 ML Syringe SUBCUT SCH (19:59)
[2020-11-29] MEDS: Calcium Carbonate 600 MG Tab PO SCH (20:00)
[2020-11-29] MEDS: Cholecalciferol (Vitamin D3) 25 MCG Tab PO SCH (20:01)
[2020-11-29] MEDS: QUETIAPINE 25 MG PO SCH (20:01)
[2020-11-29] MEDS: SIMVASTATIN 40 MG PO SCH (20:01)
--- NOTE | 2020-11-30 00:20 | HP ---
PATIENT PROFILE: The patient is an 85-year-old patient from [place], [place]. HISTORY OF PRESENT ILLNESS: This 85-year-old patient was brought by EMS to the emergency room after being seen in the clinic today for an episode of confusion and chest pain. She reported that this morning she was writing letters and noted that the writing was all over the paper. After this, she developed an episode of mild chest pain. The patient reports double vision, followed by being taken to the clinic. She was taken to the clinic by a friend, but was not seen due to her complaints and the provider called EMS and the patient was then transferred to the [facility] for evaluation. At the time of her being seen at the emergency room, she did not complain of any chest pain. No recent illnesses. She did have a COVID vaccine approximately 10 days to 2 weeks ago. No complaints of cough, weakness, or shortness of breath. The patient complains slightly of dysuria and urinary frequency over the last couple of days. No nausea, no vomiting. There was some associated symptoms of confusion. PAST MEDICAL HISTORY: Includes cataract extraction, decreased hearing, impaired vision. Cardiovascular History: Reports high cholesterol, pacemaker insertion, and syncope. Respiratory: No complaints. Gastrointestinal System: Complains of GERD. Genitourinary: See present history. Other genitourinary history, has some dribbling of urine. FRATERNITY ADVISER History: Negative. Musculoskeletal History: Has history of arthritis, back pain, osteoporosis, rheumatoid arthritis questionable, and osteopenia. Neurological History: Denies seizures but does have some dizziness. PAST SURGICAL HISTORY: Includes cataract extraction and some spinal injections to her lumbar spine. She had a shoulder surgery also. Past infectious history includes chicken pox, measles, mumps, pertussis and whooping cough and rubella. Other past medical history includes osteopenia, osteoporosis. MEDICATIONS: Include Zocor 40 mg at bedtime; calcium carbonate with vitamin D3, 500 mg of calcium and vitamin D3 at 200 one tablet bedtime; cholecalciferol (vitamin D3) 3000 units daily; Prolia which is denosumab 60 mg every 6 months subcutaneously; Tylenol Arthritis 650 q.6h; Plavix 75 mg daily; ferrous sulfate 325 mg daily, Prozac 40 mg daily, oxybutynin 10 mg XL 1 tablet daily; quetiapine (Seroquel) 25 mg at bedtime; hydroxyzine (Vistaril) 25 mg on a p.r.n. basis. ALLERGIES: To donepezil (Aricept), midazolam, nonsteroidal, sulfa, and tramadol. SOCIAL/PERSONAL HISTORY: The patient lives alone in her apartment at [place]. Recently lost her whom she was to for many years. Reports being lonely and cries a lot. She is being taken care of by the son who comes to her apartment daily. However, she appears to be losing some ground. REVIEW OF SYSTEMS: HEAD: See present history. NECK: No complaints. NEUROLOGICAL: Complaints of generalized weakness and near syncopal episodes. GASTROINTESTINAL SYSTEM: Complaints of nausea but no diarrhea. Her stools are black that may be because she is taking iron tablets. No maikel blood. MUSCULOSKELETAL: Again weakness. NEUROLOGIC: Further neurological symptoms include confusion, weakness. No numbness, paresthesia. No previous deficit. Speech, no complaints. Gait, weakness. PSYCHIATRIC: No complaints. HEMATOLOGICAL: No complaints. PHYSICAL EXAMINATION: GENERAL: Reveals a very pleasant, elderly patient. She was seen in the room at 7:30 p.m. The nurses had called stating that she had another episode of almost passing off near syncope. She was sitting, eating, and then she became faint and then she was brought to her bed and then she rapidly recovered. VITAL SIGNS: Her blood pressure was not low except the blood pressure was 140/60, pulse was 72/mt. She appeared to be somewhat weak and pale. She became mentally alert shortly after being brought to her room. I did examine her in the room. Temperature is 97.1, respirations 15, oximeter is 95%. EYE: Normal. HEAD: Normocephalic. NECK: Supple. Full range of motion. No midline swellings. Carotid pulses are full. Trachea is midline. Lymph nodes are not enlarged. LUNGS: Clinically clear to percussion and auscultation. CARDIOVASCULAR: Regular rhythm. Peripheral pulses are full. No edema noted. ABDOMEN: Nontender. Normal bowel sounds. No masses palpable. No hepatosplenomegaly. BACK: Normal. EXTREMITIES: Normal. NEUROLOGICAL: The patient is alert and oriented. Cranial nerves are normal. Speech is normal. Normal cognition. Normal reflexes. No motor or sensory deficits. PSYCHIATRIC: Normal affect, but appears to be slightly depressed mood. SKIN: Normal. LYMPHATIC: Normal. DIAGNOSTIC: EKG was performed. Normal sinus rhythm. [place] is normal. P-wave is present. QRS is normal. ST is normal. QT interval is normal, 100% paced. CAT scan was negative. EKG did not show any ischemic changes. LABORATORY DATA: Her hemoglobin is 9.2, this is certainly lower than last year, in May it was 12.5 or 13; hematocrit is 30.11. Electrolytes are normal. BUN is 25, normal 18; creatinine normal; glucose normal. Liver functions normal. Troponin was 0.017, normal. Albumin is slightly low at 3.34, normal 3.4; total protein normal. Urinalysis shows epithelial cells, no bacteria. IMPRESSION/PLAN: 1. Symptoms of dizziness, near syncope with complete recovery, 2 episodes, 1 at home and 1 in the hospital. ? Vertebral Insufficiency vs Huypovolemia/ Anemia. 2. Anemia, probably iron deficiency. 3. Chest pain, probably chest wall pain, possible angina. 4. Chronic back pain due to osteoarthritis, spondylosis. 5. Osteoporosis. 6. Cardiac pacemaker in situ. 7. History of benign positional vertigo. 8. History of mixed hyperlipidemia. 9. History of acute coronary syndrome in the past. It should also be noted that the patient has not been very regular in taking her medications. The patient apparently is a full code. Plan is to admit to the hospital, watch her very closely. I believe that she is somewhat dehydrated. We will give her 350 mL of normal saline bolus and start normal saline at 110 mL/h. Repeat CBC in the morning. Repeat complete metabolic panel in the morning. I did discuss with the patient about her neurological status and her code status. She did change her code status to a chemical code only. She does not want any neurological or neurosurgical intervention at this time. We will continue to monitor her troponin levels. We will continue with her medications including Zocor, Plavix, ferrous sulfate, Prozac. We will hold on the Seroquel, oxybutynin, and hydroxyzine. We will continue acetaminophen. We will also continue D3 and calcium carbonate. /[id number]/MODL MTDD
[2020-11-30] MEDS: Sodium Chloride 0.9% 1,000 ML IV SCH ×2 (01:31→11:29)
[2020-11-30 07:46] LABS: ANION GAP 12.1 mmol/L (5-15); CHLORIDE,CL 107 mmol/L (98-107); SODIUM,NA 140 mmol/L (136-145)
[2020-11-30] MEDS ORDERED: Clopidogrel 75 MG Tab - PTOM PO SCH (09:00)
[2020-11-30] MEDS: Lidocaine 5% 700 MG Patch TOP SCH (09:08)
[2020-11-30] MEDS: Ferrous Sulfate 325 MG Tab PO SCH (09:08)
[2020-11-30] MEDS: FLUOXETINE 40 MG PO SCH (09:16)
--- NOTE | 2020-11-30 09:25 | PCM.PN ---
- General Info Date of Service: 11/30/20 Subjective Update: Patient reports she feels good this morning. Denies CP, reports mild intermittent SOB and nausea. Complains of back pain, lidoderm patch recently applied. Patient admits to increased forgetfulness recently and she forgets to take her morning medications 1-2 times per week. Patient's son, Kevin stops and visits her every day after he gets done with work at [employer]. She enjoys this, states that she is very lonesome and looks at her four kulkarni a lot. She has home health nursing staff come set up her medications every two weeks and has assistance with cleaning on a weekly basis. She recently started receiving meals on wheels and reports that she has gained weight recently. She states that her family did not want her to use the stove due to safety concerns. She states she does not want to go back to the [place], she was there previously with her until his passing in March,. Functional Status: Reports: Pain Controlled (PRN tylenol and lidoderm patch), Tolerating Diet - Review of Systems General: Reports: Fatigue. Denies: Fever, Chills HEENT: Reports: No Symptoms Pulmonary: Reports: Shortness of Breath (mild intermittent) Cardiovascular: Reports: Edema (improved with teds ). Denies: Chest Pain, Palpitations Gastrointestinal: Denies: Constipation, Decreased Appetite, Nausea, Vomiting Skin: Reports: No Symptoms Neurological: Reports: Confusion, Dizziness (orthostatic hypotension). Denies: Headache Psychiatric: Reports: Confusion, Depression - Patient Data Vitals - Most Recent: Last Vital Signs Temp 98.8 F 11/30/20 06:33 Pulse 62 11/30/20 06:33 Resp 18 11/30/20 06:33 BP 118/49 L 11/30/20 06:33 Pulse Ox 94 L 11/30/20 06:33 Weight - Most Recent: 140 lb 4.8 oz I&O - Last 24 Hours: Intake & Output 11/29/20 11/30/20 11/30/20 22:59 06:59 14:59 Intake Total 780 853 Balance 780 853 Lab Results Last 24 Hours: Laboratory Results - last 24 hr 11/29/20 11/29/20 11/29/20 Range/Units 12:40 12:40 12:40 WBC 4.89 L (5.00-10.00) 10^3/uL RBC 3.55 L (3.80-5.50) 10^6/uL Hgb 9.2 L D (12.0-16.0) g/dL Hct 30.1 L (37.0-47.0) % MCV 84.8 D (82.0-92.0) fL MCH 25.9 L (27.0-31.0) pg MCHC 30.6 L (32.0-36.0) g/dL RDW 15.7 H (11.5-14.5) % Plt Count 289 D (150-400) 10^3/uL MPV 10.2 (7.4-10.4) fL Immature Gran % (Auto) 0.2 (0.0-5.0) % Neut % (Auto) 65.4 (50.0-70.0) % Lymph % (Auto) 18.2 L (20.0-40.0) % [place] % (Auto) 11.7 H (2.0-8.0) % Eos % (Auto) 4.3 H (1.0-3.0) % Baso % (Auto) 0.2 (0.0-1.0) % Neut # (Auto) 3.20 (2.50-7.00) 10^3/uL Lymph # (Auto) 0.89 L (1.00-4.00) 10^3/uL [place] # (Auto) 0.57 (0.10-0.80) 10^3/uL Eos # (Auto) 0.21 (0.10-0.30) 10^3/uL Baso # (Auto) 0.01 (0.00-0.10) 10^3/uL Immature Gran # (Auto) 0.01 (0.00-0.50) 10^3/uL Sodium 138 (136-145) mmol/L Potassium 4.2 (3.5-5.1) mmol/L Chloride 103 (98-107) mmol/L Carbon Dioxide 24.6 (21.0-32.0) mmol/L Anion Gap 14.6 (5-15) mmol/L BUN 25 H (7-18) mg/dL Creatinine 0.97 (0.51-1.17) mg/dL Est Cr Clr Drug Dosing TNP Estimated GFR (MDRD) 55 mL/min Glucose 91 (70-140) mg/dL POC Glucose (74-106) mg/dl Lactic Acid 1.0 (0.4-2.0) mmol/L Calcium 9.2 (8.7-10.3) mg/dL Total Bilirubin 0.2 (0.2-1.0) mg/dL AST 17 (15-37) U/L ALT 23 (14-63) U/L Alkaline Phosphatase 77 (46-116) U/L Creatine Kinase 111 (26-276) U/L CK-MB (CK-2) 3.25 (0.00-3.60) ng/mL Troponin I < 0.017 (0.000-0.056) ng/mL Total Protein 6.7 (6.4-8.2) g/dL Albumin 3.34 L (3.40-5.00) g/dL Lipase 91 (73-393) U/L Specimen Type Urine Color (YELLOW) Urine Appearance (CLEAR) Urine pH (5.0-9.0) Ur Specific [place] (1.005-1.030) Urine Protein (NEGATIVE) mg/dL Urine Glucose (UA) (NEGATIVE) mg/dL Urine Ketones (NEGATIVE) mg/dL Urine Occult Blood (NEGATIVE) Urine Nitrite (NEGATIVE) Urine Bilirubin (NEGATIVE) Urine Urobilinogen (0.2-1.0) E.U./dL Ur Leukocyte Esterase (NEGATIVE) Urine RBC (0-5) /HPF Urine WBC (0-5) /HPF Ur Epithelial Cells /LPF Urine Bacteria (NONE TO FEW) /HPF SARS CoV-2 RNA Rapid YUDY (NEGATIVE) 11/29/20 11/29/20 11/29/20 Range/Units 13:00 14:10 18:00 WBC (5.00-10.00) 10^3/uL RBC (3.80-5.50) 10^6/uL Hgb (12.0-16.0) g/dL Hct (37.0-47.0) % MCV (82.0-92.0) fL MCH (27.0-31.0) pg MCHC (32.0-36.0) g/dL RDW (11.5-14.5) % Plt Count (150-400) 10^3/uL MPV (7.4-10.4) fL Immature Gran % (Auto) (0.0-5.0) % Neut % (Auto) (50.0-70.0) % Lymph % (Auto) (20.0-40.0) % [place] % (Auto) (2.0-8.0) % Eos % (Auto) (1.0-3.0) % Baso % (Auto) (0.0-1.0) % Neut # (Auto) (2.50-7.00) 10^3/uL Lymph # (Auto) (1.00-4.00) 10^3/uL [place] # (Auto) (0.10-0.80) 10^3/uL Eos # (Auto) (0.10-0.30) 10^3/uL Baso # (Auto) (0.00-0.10) 10^3/uL Immature Gran # (Auto) (0.00-0.50) 10^3/uL Sodium (136-145) mmol/L Potassium (3.5-5.1) mmol/L Chloride (98-107) mmol/L Carbon Dioxide (21.0-32.0) mmol/L Anion Gap (5-15) mmol/L BUN (7-18) mg/dL Creatinine (0.51-1.17) mg/dL Est Cr Clr Drug Dosing Estimated GFR (MDRD) mL/min Glucose (70-140) mg/dL POC Glucose (74-106) mg/dl Lactic Acid (0.4-2.0) mmol/L Calcium (8.7-10.3) mg/dL Total Bilirubin (0.2-1.0) mg/dL AST (15-37) U/L ALT (14-63) U/L Alkaline Phosphatase (46-116) U/L Creatine Kinase (26-276) U/L CK-MB (CK-2) (0.00-3.60) ng/mL Troponin I 0.017 (0.000-0.056) ng/mL Total Protein (6.4-8.2) g/dL Albumin (3.40-5.00) g/dL Lipase (73-393) U/L Specimen Type [place]rin[place]ath Urine Color Yellow (YELLOW) Urine Appearance Slightly cloudy H (CLEAR) Urine pH 5.5 (5.0-9.0) Ur Specific [place] 1.025 (1.005-1.030) Urine Protein Negative (NEGATIVE) mg/dL Urine Glucose (UA) Negative (NEGATIVE) mg/dL Urine Ketones Negative (NEGATIVE) mg/dL Urine Occult Blood Trace-intact H (NEGATIVE) Urine Nitrite Negative (NEGATIVE) Urine Bilirubin Negative (NEGATIVE) Urine Urobilinogen 0.2 (0.2-1.0) E.U./dL Ur Leukocyte Esterase Negative (NEGATIVE) Urine RBC 0-5 (0-5) /HPF Urine WBC 0-5 (0-5) /HPF Ur Epithelial Cells Few /LPF Urine Bacteria Few (NONE TO FEW) /HPF SARS CoV-2 RNA Rapid YUDY Negative (NEGATIVE) 11/29/20 11/29/20 11/30/20 Range/Units 18:40 23:59 07:08 WBC (5.00-10.00) 10^3/uL RBC (3.80-5.50) 10^6/uL Hgb (12.0-16.0) g/dL Hct (37.0-47.0) % MCV (82.0-92.0) fL MCH (27.0-31.0) pg MCHC (32.0-36.0) g/dL RDW (11.5-14.5) % Plt Count (150-400) 10^3/uL MPV (7.4-10.4) fL Immature Gran % (Auto) (0.0-5.0) % Neut % (Auto) (50.0-70.0) % Lymph % (Auto) (20.0-40.0) % [place] % (Auto) (2.0-8.0) % Eos % (Auto) (1.0-3.0) % Baso % (Auto) (0.0-1.0) % Neut # (Auto) (2.50-7.00) 10^3/uL Lymph # (Auto) (1.00-4.00) 10^3/uL [place] # (Auto) (0.10-0.80) 10^3/uL Eos # (Auto) (0.10-0.30) 10^3/uL Baso # (Auto) (0.00-0.10) 10^3/uL Immature Gran # (Auto) (0.00-0.50) 10^3/uL Sodium 140 (136-145) mmol/L Potassium 4.3 (3.5-5.1) mmol/L Chloride 107 (98-107) mmol/L Carbon Dioxide 25.2 (21.0-32.0) mmol/L Anion Gap 12.1 (5-15) mmol/L BUN 18 (7-18) mg/dL Creatinine 0.87 (0.51-1.17) mg/dL Est Cr Clr Drug Dosing 39.11 Estimated GFR (MDRD) > 60 mL/min Glucose 92 (70-140) mg/dL POC Glucose 119 H (74-106) mg/dl Lactic Acid (0.4-2.0) mmol/L Calcium 8.5 L (8.7-10.3) mg/dL Total Bilirubin 0.2 (0.2-1.0) mg/dL AST 15 (15-37) U/L ALT 19 (14-63) U/L Alkaline Phosphatase 68 (46-116) U/L Creatine Kinase (26-276) U/L CK-MB (CK-2) (0.00-3.60) ng/mL Troponin I 0.019 < 0.017 (0.000-0.056) ng/mL Total Protein 5.6 L (6.4-8.2) g/dL Albumin 2.69 L (3.40-5.00) g/dL Lipase (73-393) U/L Specimen Type Urine Color (YELLOW) Urine Appearance (CLEAR) Urine pH (5.0-9.0) Ur Specific [place] (1.005-1.030) Urine Protein (NEGATIVE) mg/dL Urine Glucose (UA) (NEGATIVE) mg/dL Urine Ketones (NEGATIVE) mg/dL Urine Occult Blood (NEGATIVE) Urine Nitrite (NEGATIVE) Urine Bilirubin (NEGATIVE) Urine Urobilinogen (0.2-1.0) E.U./dL Ur Leukocyte Esterase (NEGATIVE) Urine RBC (0-5) /HPF Urine WBC (0-5) /HPF Ur Epithelial Cells /LPF Urine Bacteria (NONE TO FEW) /HPF SARS CoV-2 RNA Rapid YUDY (NEGATIVE) 11/30/20 Range/Units 07:08 WBC 4.22 L (5.00-10.00) 10^3/uL RBC 3.26 L (3.80-5.50) 10^6/uL Hgb 8.4 L (12.0-16.0) g/dL Hct 27.9 L (37.0-47.0) % MCV 85.6 (82.0-92.0) fL MCH 25.8 L (27.0-31.0) pg MCHC 30.1 L (32.0-36.0) g/dL RDW 15.6 H (11.5-14.5) % Plt Count 234 (150-400) 10^3/uL MPV 9.9 (7.4-10.4) fL Immature Gran % (Auto) 0.2 (0.0-5.0) % Neut % (Auto) 62.1 (50.0-70.0) % Lymph % (Auto) 18.7 L (20.0-40.0) % [place] % (Auto) 10.7 H (2.0-8.0) % Eos % (Auto) 8.1 H (1.0-3.0) % Baso % (Auto) 0.2 (0.0-1.0) % Neut # (Auto) 2.62 (2.50-7.00) 10^3/uL Lymph # (Auto) 0.79 L (1.00-4.00) 10^3/uL [place] # (Auto) 0.45 (0.10-0.80) 10^3/uL Eos # (Auto) 0.34 H (0.10-0.30) 10^3/uL Baso # (Auto) 0.01 (0.00-0.10) 10^3/uL Immature Gran # (Auto) 0.01 (0.00-0.50) 10^3/uL Sodium (136-145) mmol/L Potassium (3.5-5.1) mmol/L Chloride (98-107) mmol/L Carbon Dioxide (21.0-32.0) mmol/L Anion Gap (5-15) mmol/L BUN (7-18) mg/dL Creatinine (0.51-1.17) mg/dL Est Cr Clr Drug Dosing Estimated GFR (MDRD) mL/min Glucose (70-140) mg/dL POC Glucose (74-106) mg/dl Lactic Acid (0.4-2.0) mmol/L Calcium (8.7-10.3) mg/dL Total Bilirubin (0.2-1.0) mg/dL AST (15-37) U/L ALT (14-63) U/L Alkaline Phosphatase (46-116) U/L Creatine Kinase (26-276) U/L CK-MB (CK-2) (0.00-3.60) ng/mL Troponin I (0.000-0.056) ng/mL Total Protein (6.4-8.2) g/dL Albumin (3.40-5.00) g/dL Lipase (73-393) U/L Specimen Type Urine Color (YELLOW) Urine Appearance (CLEAR) Urine pH (5.0-9.0) Ur Specific [place] (1.005-1.030) Urine Protein (NEGATIVE) mg/dL Urine Glucose (UA) (NEGATIVE) mg/dL Urine Ketones (NEGATIVE) mg/dL Urine Occult Blood (NEGATIVE) Urine Nitrite (NEGATIVE) Urine Bilirubin (NEGATIVE) Urine Urobilinogen (0.2-1.0) E.U./dL Ur Leukocyte Esterase (NEGATIVE) Urine RBC (0-5) /HPF Urine WBC (0-5) /HPF Ur Epithelial Cells /LPF Urine Bacteria (NONE TO FEW) /HPF SARS CoV-2 RNA Rapid YUDY (NEGATIVE) Lauri Results Last 24 Hours: Microbiology 11/29/20 19:14 Stool Occult Blood (LAURI) - Final Stool / Feces Med Orders - Current: Current Medications Acetaminophen (Tylenol Arthritis Pain) 650 mg PO Q6H PRN PRN Reason: Pain Calcium Carbonate/Glycine (Calcium Carbonate) 600 mg PO BEDTIME [facility] Last Admin: 11/29/20 20:00 Dose: 600 mg Documented by: Cholecalciferol (Vitamin D3) 75 mcg PO BEDTIME [facility] Last Admin: 11/29/20 20:01 Dose: 75 mcg Documented by: Clopidogrel Bisulfate (Plavix) 75 mg PO DAILY [facility] Last Admin: 11/30/20 09:16 Dose: 75 mg Documented by: Enoxaparin Sodium (Lovenox) 40 mg SUBCUT Q24H [facility] Last Admin: 11/29/20 19:59 Dose: 40 mg Documented by: Ferrous Sulfate (Ferrous Sulfate) 325 mg PO DAILY [facility] Last Admin: 11/30/20 09:08 Dose: 325 mg Documented by: Sodium Chloride (Normal Saline) 1,000 mls @ 110 mls/hr IV ASDIRECTED [facility] Last Admin: 11/30/20 01:31 Dose: 110 mls/hr Documented by: Lidocaine (Lidoderm 5%) 700 mg TOP DAILY [facility] Last Admin: 11/30/20 09:08 Dose: 700 mg Documented by: Miscellaneous Information (Remove Patch) 1 ea TRDERM 2100 [facility] Last Admin: 11/29/20 20:01 Dose: Not Given Documented by: Fluoxetine [Prozac] (40 Mg Capsule - Ptom) 40 mg PO DAILY [facility] Last Admin: 11/30/20 09:16 Dose: 40 mg Documented by: Simvastatin [Zocor] (40 Mg - Ptom) 40 mg PO BEDTIME [facility] Last Admin: 11/29/20 20:01 Dose: 40 mg Documented by: Quetiapine Fumarate (Seroquel) 25 mg PO BEDTIME [facility] Last Admin: 11/29/20 20:01 Dose: 25 mg Documented by: Sodium Chloride (Saline Flush) 10 ml FLUSH Q8HR PRN PRN Reason: keep vein open Discontinued Medications Aspirin (Aspirin) 324 mg PO ONETIME ONE Stop: 11/29/20 14:38 Last Admin: 11/29/20 14:45 Dose: 324 mg Documented by: Sodium Chloride (Saline Flush) 10 ml FLUSH Q8HR PRN PRN Reason: keep vein open - Exam Quality Assessment: No: Supplemental Oxygen General: Alert, Cooperative, No Acute Distress HEENT: Pupils Equal Neck: Supple Lungs: Clear to Auscultation, Normal Respiratory Effort. No: Decreased Breath Sounds, Crackles, Wheezing Cardiovascular: Regular Rate, Regular Rhythm (atrial pacemaker) GI/Abdominal Exam: Normal Bowel Sounds, Soft, Non-Tender, No Distention (Female) Exam: Deferred Back Exam: Normal Inspection Extremities: Pedal Edema (non-pitting, teds in place) Peripheral Pulses: 2+: Dorsalis Pedis (L), Dorsalis Pedis (R) Skin: Warm, Dry, Intact Neurological: No New Focal Deficit, Normal Speech Psy/Mental Status: Alert, Depressed - Patient Data Lab Results Last 24 hrs: Laboratory Results - last 24 hr 03/12/1711/29/20 11/29/20 Range/Units 12:40 12:40 12:40 WBC 4.89 L (5.00-10.00) 10^3/uL RBC 3.55 L (3.80-5.50) 10^6/uL Hgb 9.2 L D (12.0-16.0) g/dL Hct 30.1 L (37.0-47.0) % MCV 84.8 D (82.0-92.0) fL MCH 25.9 L (27.0-31.0) pg MCHC 30.6 L (32.0-36.0) g/dL RDW 15.7 H (11.5-14.5) % Plt Count 289 D (150-400) 10^3/uL MPV 10.2 (7.4-10.4) fL Immature Gran % (Auto) 0.2 (0.0-5.0) % Neut % (Auto) 65.4 (50.0-70.0) % Lymph % (Auto) 18.2 L (20.0-40.0) % [place] % (Auto) 11.7 H (2.0-8.0) % Eos % (Auto) 4.3 H (1.0-3.0) % Baso % (Auto) 0.2 (0.0-1.0) % Neut # (Auto) 3.20 (2.50-7.00) 10^3/uL Lymph # (Auto) 0.89 L (1.00-4.00) 10^3/uL [place] # (Auto) 0.57 (0.10-0.80) 10^3/uL Eos # (Auto) 0.21 (0.10-0.30) 10^3/uL Baso # (Auto) 0.01 (0.00-0.10) 10^3/uL Immature Gran # (Auto) 0.01 (0.00-0.50) 10^3/uL Sodium 138 (136-145) mmol/L Potassium 4.2 (3.5-5.1) mmol/L Chloride 103 (98-107) mmol/L Carbon Dioxide 24.6 (21.0-32.0) mmol/L Anion Gap 14.6 (5-15) mmol/L BUN 25 H (7-18) mg/dL Creatinine 0.97 (0.51-1.17) mg/dL Est Cr Clr Drug Dosing TNP Estimated GFR (MDRD) 55 mL/min Glucose 91 (70-140) mg/dL POC Glucose (74-106) mg/dl Lactic Acid 1.0 (0.4-2.0) mmol/L Calcium 9.2 (8.7-10.3) mg/dL Total Bilirubin 0.2 (0.2-1.0) mg/dL AST 17 (15-37) U/L ALT 23 (14-63) U/L Alkaline Phosphatase 77 (46-116) U/L Creatine Kinase 111 (26-276) U/L CK-MB (CK-2) 3.25 (0.00-3.60) ng/mL Troponin I < 0.017 (0.000-0.056) ng/mL Total Protein 6.7 (6.4-8.2) g/dL Albumin 3.34 L (3.40-5.00) g/dL Lipase 91 (73-393) U/L Specimen Type Urine Color (YELLOW) Urine Appearance (CLEAR) Urine pH (5.0-9.0) Ur Specific [place] (1.005-1.030) Urine Protein (NEGATIVE) mg/dL Urine Glucose (UA) (NEGATIVE) mg/dL Urine Ketones (NEGATIVE) mg/dL Urine Occult Blood (NEGATIVE) Urine Nitrite (NEGATIVE) Urine Bilirubin (NEGATIVE) Urine Urobilinogen (0.2-1.0) E.U./dL Ur Leukocyte Esterase (NEGATIVE) Urine RBC (0-5) /HPF Urine WBC (0-5) /HPF Ur Epithelial Cells /LPF Urine Bacteria (NONE TO FEW) /HPF SARS CoV-2 RNA Rapid YUDY (NEGATIVE) 11/29/20 11/29/20 11/29/20 Range/Units 13:00 14:10 18:00 WBC (5.00-10.00) 10^3/uL RBC (3.80-5.50) 10^6/uL Hgb (12.0-16.0) g/dL Hct (37.0-47.0) % MCV (82.0-92.0) fL MCH (27.0-31.0) pg MCHC (32.0-36.0) g/dL RDW (11.5-14.5) % Plt Count (150-400) 10^3/uL MPV (7.4-10.4) fL Immature Gran % (Auto) (0.0-5.0) % Neut % (Auto) (50.0-70.0) % Lymph % (Auto) (20.0-40.0) % [place] % (Auto) (2.0-8.0) % Eos % (Auto) (1.0-3.0) % Baso % (Auto) (0.0-1.0) % Neut # (Auto) (2.50-7.00) 10^3/uL Lymph # (Auto) (1.00-4.00) 10^3/uL [place] # (Auto) (0.10-0.80) 10^3/uL Eos # (Auto) (0.10-0.30) 10^3/uL Baso # (Auto) (0.00-0.10) 10^3/uL Immature Gran # (Auto) (0.00-0.50) 10^3/uL Sodium (136-145) mmol/L Potassium (3.5-5.1) mmol/L Chloride (98-107) mmol/L Carbon Dioxide (21.0-32.0) mmol/L Anion Gap (5-15) mmol/L BUN (7-18) mg/dL Creatinine (0.51-1.17) mg/dL Est Cr Clr Drug Dosing Estimated GFR (MDRD) mL/min Glucose (70-140) mg/dL POC Glucose (74-106) mg/dl Lactic Acid (0.4-2.0) mmol/L Calcium (8.7-10.3) mg/dL Total Bilirubin (0.2-1.0) mg/dL AST (15-37) U/L ALT (14-63) U/L Alkaline Phosphatase (46-116) U/L Creatine Kinase (26-276) U/L CK-MB (CK-2) (0.00-3.60) ng/mL Troponin I 0.017 (0.000-0.056) ng/mL Total Protein (6.4-8.2) g/dL Albumin (3.40-5.00) g/dL Lipase (73-393) U/L Specimen Type Urin[place]ath Urine Color Yellow (YELLOW) Urine Appearance Slightly cloudy H (CLEAR) Urine pH 5.5 (5.0-9.0) Ur Specific [place] 1.025 (1.005-1.030) Urine Protein Negative (NEGATIVE) mg/dL Urine Glucose (UA) Negative (NEGATIVE) mg/dL Urine Ketones Negative (NEGATIVE) mg/dL Urine Occult Blood Trace-intact H (NEGATIVE) Urine Nitrite Negative (NEGATIVE) Urine Bilirubin Negative (NEGATIVE) Urine Urobilinogen 0.2 (0.2-1.0) E.U./dL Ur Leukocyte Esterase Negative (NEGATIVE) Urine RBC 0-5 (0-5) /HPF Urine WBC 0-5 (0-5) /HPF Ur Epithelial Cells Few /LPF Urine Bacteria Few (NONE TO FEW) /HPF SARS CoV-2 RNA Rapid YUDY Negative (NEGATIVE) 11/29/20 11/29/20 11/30/20 Range/Units 18:40 23:59 07:08 WBC (5.00-10.00) 10^3/uL RBC (3.80-5.50) 10^6/uL Hgb (12.0-16.0) g/dL Hct (37.0-47.0) % MCV (82.0-92.0) fL MCH (27.0-31.0) pg MCHC (32.0-36.0) g/dL RDW (11.5-14.5) % Plt Count (150-400) 10^3/uL MPV (7.4-10.4) fL Immature Gran % (Auto) (0.0-5.0) % Neut % (Auto) (50.0-70.0) % Lymph % (Auto) (20.0-40.0) % [place] % (Auto) (2.0-8.0) % Eos % (Auto) (1.0-3.0) % Baso % (Auto) (0.0-1.0) % Neut # (Auto) (2.50-7.00) 10^3/uL Lymph # (Auto) (1.00-4.00) 10^3/uL [place] # (Auto) (0.10-0.80) 10^3/uL Eos # (Auto) (0.10-0.30) 10^3/uL Baso # (Auto) (0.00-0.10) 10^3/uL Immature Gran # (Auto) (0.00-0.50) 10^3/uL Sodium 140 (136-145) mmol/L Potassium 4.3 (3.5-5.1) mmol/L Chloride 107 (98-107) mmol/L Carbon Dioxide 25.2 (21.0-32.0) mmol/L Anion Gap 12.1 (5-15) mmol/L BUN 18 (7-18) mg/dL Creatinine 0.87 (0.51-1.17) mg/dL Est Cr Clr Drug Dosing 39.11 Estimated GFR (MDRD) > 60 mL/min Glucose 92 (70-140) mg/dL POC Glucose 119 H (74-106) mg/dl Lactic Acid (0.4-2.0) mmol/L Calcium 8.5 L (8.7-10.3) mg/dL Total Bilirubin 0.2 (0.2-1.0) mg/dL AST 15 (15-37) U/L ALT 19 (14-63) U/L Alkaline Phosphatase 68 (46-116) U/L Creatine Kinase (26-276) U/L CK-MB (CK-2) (0.00-3.60) ng/mL Troponin I 0.019 < 0.017 (0.000-0.056) ng/mL Total Protein 5.6 L (6.4-8.2) g/dL Albumin 2.69 L (3.40-5.00) g/dL Lipase (73-393) U/L Specimen Type Urine Color (YELLOW) Urine Appearance (CLEAR) Urine pH (5.0-9.0) Ur Specific [place] (1.005-1.030) Urine Protein (NEGATIVE) mg/dL Urine Glucose (UA) (NEGATIVE) mg/dL Urine Ketones (NEGATIVE) mg/dL Urine Occult Blood (NEGATIVE) Urine Nitrite (NEGATIVE) Urine Bilirubin (NEGATIVE) Urine Urobilinogen (0.2-1.0) E.U./dL Ur Leukocyte Esterase (NEGATIVE) Urine RBC (0-5) /HPF Urine WBC (0-5) /HPF Ur Epithelial Cells /LPF Urine Bacteria (NONE TO FEW) /HPF SARS CoV-2 RNA Rapid YUDY (NEGATIVE) 11/30/20 Range/Units 07:08 WBC 4.22 L (5.00-10.00) 10^3/uL RBC 3.26 L (3.80-5.50) 10^6/uL Hgb 8.4 L (12.0-16.0) g/dL Hct 27.9 L (37.0-47.0) % MCV 85.6 (82.0-92.0) fL MCH 25.8 L (27.0-31.0) pg MCHC 30.1 L (32.0-36.0) g/dL RDW 15.6 H (11.5-14.5) % Plt Count 234 (150-400) 10^3/uL MPV 9.9 (7.4-10.4) fL Immature Gran % (Auto) 0.2 (0.0-5.0) % Neut % (Auto) 62.1 (50.0-70.0) % Lymph % (Auto) 18.7 L (20.0-40.0) % [place] % (Auto) 10.7 H (2.0-8.0) % Eos % (Auto) 8.1 H (1.0-3.0) % Baso % (Auto) 0.2 (0.0-1.0) % Neut # (Auto) 2.62 (2.50-7.00) 10^3/uL Lymph # (Auto) 0.79 L (1.00-4.00) 10^3/uL [place] # (Auto) 0.45 (0.10-0.80) 10^3/uL Eos # (Auto) 0.34 H (0.10-0.30) 10^3/uL Baso # (Auto) 0.01 (0.00-0.10) 10^3/uL Immature Gran # (Auto) 0.01 (0.00-0.50) 10^3/uL Sodium (136-145) mmol/L Potassium (3.5-5.1) mmol/L Chloride (98-107) mmol/L Carbon Dioxide (21.0-32.0) mmol/L Anion Gap (5-15) mmol/L BUN (7-18) mg/dL Creatinine (0.51-1.17) mg/dL Est Cr Clr Drug Dosing Estimated GFR (MDRD) mL/min Glucose (70-140) mg/dL POC Glucose (74-106) mg/dl Lactic Acid (0.4-2.0) mmol/L Calcium (8.7-10.3) mg/dL Total Bilirubin (0.2-1.0) mg/dL AST (15-37) U/L ALT (14-63) U/L Alkaline Phosphatase (46-116) U/L Creatine Kinase (26-276) U/L CK-MB (CK-2) (0.00-3.60) ng/mL Troponin I (0.000-0.056) ng/mL Total Protein (6.4-8.2) g/dL Albumin (3.40-5.00) g/dL Lipase (73-393) U/L Specimen Type Urine Color (YELLOW) Urine Appearance (CLEAR) Urine pH (5.0-9.0) Ur Specific [place] (1.005-1.030) Urine Protein (NEGATIVE) mg/dL Urine Glucose (UA) (NEGATIVE) mg/dL Urine Ketones (NEGATIVE) mg/dL Urine Occult Blood (NEGATIVE) Urine Nitrite (NEGATIVE) Urine Bilirubin (NEGATIVE) Urine Urobilinogen (0.2-1.0) E.U./dL Ur Leukocyte Esterase (NEGATIVE) Urine RBC (0-5) /HPF Urine WBC (0-5) /HPF Ur Epithelial Cells /LPF Urine Bacteria (NONE TO FEW) /HPF SARS CoV-2 RNA Rapid YUDY (NEGATIVE) Result Diagrams: 11/30/20 07:08 11/30/20 07:08 Lauri Results Last 24 hrs: Microbiology 11/29/20 19:14 Stool Occult Blood (LAURI) - Final Stool / Feces Sepsis Event Note - Evaluation Sepsis Screening Result: No Definite Risk - Focused Exam Vital Signs: Vital Signs Temp Pulse Resp BP Pulse Ox 11/30/20 06:33 98.8 F 62 18 118/49 L 94 L 11/30/20 03:00 98.7 F 62 18 116/49 L 95 11/29/20 23:00 99.1 F 60 18 125/47 L 94 L - Problem List Review Problem List Initiated/Reviewed/Updated: Yes - My Orders Last 24 Hours: My Active Orders 11/30/20 09:16 Consult to Case Management/Dynamic Etching Processor [CONS] Routine - Plan Plan:: HPI summary: Patient is an 85yo female who reportedly was writing all over the paper while writing letters on the morning of 11/29/20. She experienced an episode of mild chest pain and double vision after which time she presented to the [facility] in [place] for evaluation. Patient was not seen in the clinic due to concern regarding reported symptoms and EMS was called to transport patient to [facility] ER for evaluation and treatment. ED course: Patient presented to ED by EMS from [facility] in [place]. CXR no acute cardiopulmonary process. Head CT with no acute intracranial process. EKG reviewed, electronic atrial pacemaker. No evidence of ST elevation. HR 60, VT 192ms, QRS 62ms, QTc 426. BP 102/33 in ED. Patient admitted observation status due to confusion and chest pain for monitoring and serial troponins. Hospital course: 11/30/20: Episode last evening around 1830 with 30 seconds of minimal responsiveness, followed by 7-8 minutes of increased confusion and disorientation. This resolved and patient back to baseline. VSS T 98.8, HR 62, BP 118/49, RR 18, O2 sat 94% on room air. director of outpatient services consult placed today regarding discharge planning, evaluation of ability to complete ADLs and general safety concerns at home. PT referral placed for [facility] cognitive evaluation to determine baseline. director of outpatient services to discuss concerns regarding living situation with patient's son, Kevin today. Patient was reportedly wearing her pants backwards upon arrival to ER and had stool on her legs; concern for ability to remember to take her medications appropriately which patient admits that she forgets 1-2 times per week. Hospitalization problems and plan: #Chest pain, resolved. - Troponin trended x 4 and negative. - Consider low dose isosorbide for reported intermittent episodes of chest pain #Near syncope - BUN elevated; IV fluids for suspected dehydration. Patient received 350ml bolus last evening followed by basal rate of 110ml/hr. BUN normalized to 18 this am. Will decrease IVF to 50ml/hr for maintenance. #Occult GI blood loss - Occult stool +ve this morning, stop plavix. - Repeat CBC tomorrow morning - History of peptic ulcer disease; start PPI today. Prilosec 40mg PO daily. - Recommend further workup as outpatient. Last colonoscopy in 2006. # Iron deficiency anemia - - Iron studies last evaluated in 02/15 - ferritin 181, total iron 71, TIBC 417, Fe Sat 17%. CBC in Jan, 2020 - Hgb 13.0, RBC 4.53, Hct 41.4, MCV 91.4, MCH 28.7, MCHC 31.4. CBC results from admit yesterday Hgb 9.2, RBC 3.55, Hct 30.1, MCV 84.8, MCH 25.9, MCHC 30.6. - Continue ferrous sulfate 325mg PO daily - Add vitamin C 500mg PO daily to increase absorption of iron Chronic, stable conditions: # Hx of NSTEMI (08/10/19): stop plavix today due to occult GI blood loss and anemia # Cardiac pacemaker in situ - HR controlled, no medications for rate control or anti-arrhythmics # Mixed hyperlipidemia - stable; continue simvastatin 40mg PO daily # Depression - stable; continue fluoxetine 40mg PO daily # Restless legs syndrome; stable. # Meniere's disease - stable. # BPPV # Postmenopausal atrophic vaginitis # Osteoporosis - continue oscal, vitamin D 3000IU PO daily. - Of note, patient overdue for prolia 60mg every 6 months, last given 03/06/20. # Thoracic compression fx # Chronic low back pain - osteoarthritis, spondylitis - continue tylenol, lidoderm patches Home medications of seroquel 25mg PO HS daily, Oxybutynin 10mg PO daily and hydroxyzine 25mg PO PRN anxiety on hold. Hospitalization details: # FEN: IVF of NS @ 50ml/hr, heart healthy diet. # PPX: Teds; Start prilosec 40mg PO daily # Code status: DNI, chemical code only, no compressions. # Emergency contact: Son, Kevin. # Disposition: Patient to remain on observation status to allow for licensed social worker consult and discussion with family regarding discharge planning and PT evaluation of MOCA for cognitive evaluation and baseline.
[2020-11-30] MEDS: Ascorbic Acid 500 MG Tab PO SCH (11:29)
[2020-11-30] MEDS: Enoxaparin 40 MG/0.4 ML Syringe SUBCUT SCH (19:30)
[2020-11-30] MEDS: Calcium Carbonate 600 MG Tab PO SCH (20:25)
[2020-11-30] MEDS: Cholecalciferol (Vitamin D3) 25 MCG Tab PO SCH (20:25)
[2020-11-30] MEDS: SIMVASTATIN 40 MG PO SCH (20:26)
[2020-11-30] MEDS: QUETIAPINE 25 MG PO SCH (20:26)
[2020-12-01] MEDS ORDERED: Atropine 0.1 MG/ML 10 ML Syringe IVPUSH PRN (02:08)
[2020-12-01] MEDS ORDERED: Nitroglycerin 0.4 MG Tab.SL SL PRN (02:08)
[2020-12-01] MEDS ORDERED: Lidocaine 2% 100 MG/5 ML Syringe IVPUSH PRN (02:08)
[2020-12-01] MEDS ORDERED: EPINEPHrine 1:10,000 1 MG/10 ML Syringe IVPUSH PRN (02:08)
[2020-12-01 05:52] VITALS: BP 110/59; PULSE 66
[2020-12-01] MEDS ORDERED: Omeprazole 20 MG Cap.CR PO SCH (07:30)
[2020-12-01] MEDS: Sodium Chloride 0.9% 1,000 ML IV SCH (08:22)
[2020-12-01] MEDS: Ferrous Sulfate 325 MG Tab PO SCH (08:25)
[2020-12-01] MEDS: Ascorbic Acid 500 MG Tab PO SCH (08:26)
[2020-12-01] MEDS: Lidocaine 5% 700 MG Patch TOP SCH (08:26)
[2020-12-01] MEDS: FLUOXETINE 40 MG PO SCH (08:27)
--- NOTE | 2020-12-01 10:01 | PCM.DCSUM1 ---
Discharge Summary - Hospital Course Diagnosis: Stroke: No - Discharge Data Discharge Date: 12/01/20 Discharge Disposition: Home, W Home Health Agency 06 Condition: Fair - Referral to Home Health Date of Face to Face Encounter: 12/01/20 Reason for Homebound Status: This is an order and a [id number] encounter for home health services to include nursing and Occupational Therapy. There is high risk for rehospitalization due to early signs of clinical dementia, social isolation and family dynamics. Suggested assist with teaching of medication management set up medications as there are newly discontinued and added medications. Please help develop an in-home therapy program for occupational therapy due to declining in cognitive status placing patient high risk for safety concerns. She will need to see optometry due to declining vision. She is considered homebound due to her declining cognitive state. Primary Care Physician: Nanda Tran MD Skilled Need: This is an order and a [id number] encounter for home health services to include nursing and Occupational Therapy. There is high risk for re hospitalization due to early signs of clinical dementia, social isolation and family dynamics. Suggested assist with teaching of medication management set up medications as there are newly discontinued and added medications. Please help develop an in-home therapy program for occupational therapy due to declining in cognitive status placing patient high risk for safety concerns. She will need to see optometry due to declining vision. She is considered homebound due to her declining cognitive state. - Patient Summary/Data Consults: Consultations 11/30/20 09:16 Consult to Case Management/Waste Management Recycling Technician [CONS] Routine 11/30/20 10:14 PT Evaluation and Treatment [CONS] Routine - Patient Instructions Diet: Usual Diet as Tolerated Activity: As Tolerated Driving: Do Not Drive Showering/Bathing: May Shower Other/Special Instructions: Report dizziness, sudden confusion or chest pain, or any passing out loss of consciousness - Discharge Plan *PRESCRIPTION DRUG MONITORING PROGRAM REVIEWED*: Not Applicable *COPY OF PRESCRIPTION DRUG MONITORING REPORT IN PATIENT BRENDA: Not Applicable Prescriptions/Med Rec: Omeprazole 40 mg PO ACBREAKFAST #30 cap.cr Ascorbic Acid [Vitamin C] 500 mg PO DAILY #30 tablet Home Medications: Home Meds Simvastatin [Zocor] 40 mg PO BEDTIME 06/10/17 [History] Calcium Carbonate/Vitamin D3 [Calcium 500-Vit D3 200 Tablet] 1 tab PO BEDTIME 08/10/19 [History] Cholecalciferol (Vitamin D3) [Vitamin D3] 3,000 units PO DAILY 08/10/19 [History] Denosumab [Prolia] 60 mg SQ ASDIRECTED 08/10/19 [History] Lidocaine 5% [Lidoderm 5%] 1 patch TOP DAILY #30 patch 08/12/19 [Rx] Ferrous Sulfate 325 mg PO DAILY 11/26/19 [History] Acetaminophen [Tylenol Arthritis] 650 mg PO Q6H PRN 11/29/20 [History] FLUoxetine [PROzac] 40 mg PO DAILY 11/29/20 [History] Oxybutynin Chloride [Ditropan Xl] 10 mg PO DAILY 11/29/20 [History] QUEtiapine [SEROquel] 25 mg PO BEDTIME 11/29/20 [History] hydrOXYzine pamoate [Vistaril] 25 mg PO Q6H PRN 11/29/20 [History] Ascorbic Acid [Vitamin C] 500 mg PO DAILY #30 tablet 12/01/20 [Rx] Omeprazole 40 mg PO ACBREAKFAST #30 cap.cr 12/01/20 [Rx] Referrals: Shadia Wang, OFFICE AUDITOR [Nurse Practitioner] - - Discharge Summary/Plan Comment DC Time >30 min.: Yes Discharge Summary/Plan Comment: Final diagnosis --Dehydration, mild, resolved --Cognitive impairment, early clinical dementia, SLUMS score 4/8 --Near syncope, --Anemia, GABY/blood loss HPI summary: Nori is an 85yo female who was admitted into OBS status at [facility] due to mild chest pain, vision disturbance and near syncope episode. Reportedly was writing all over the paper while writing letters on the morning of 11/29/20. She experienced an episode of mild chest pain and double vision after which time she presented to the [facility] in [place] for evaluation--subsequent emergent transport to [facility] for evaluation. t. ED course: Patient presented to ED by EMS from [facility] in [place]. CXR no acute cardiopulmonary process. Head CT with no acute intracranial process. EKG reviewed, electronic atrial pacemaker. No evidence of ST elevation. HR 60, MT 192ms, QRS 62ms, QTc 426. BP 102/33 in ED. Patient admitted observation status due to confusion and chest pain for monitoring and serial troponins. Hospital course: 11/30/20: Episode last evening around 1830 with 30 seconds of minimal res ponsiveness, followed by 7-8 minutes of increased confusion and disorientation. This resolved and patient back to baseline. VSS T 98.8, HR 62, BP 118/49, RR 18, O2 sat 94% on room air. volunteer services coordinator consult placed today regarding discharge planning, evaluation of ability to complete ADLs and general safety concerns at home. PT referral placed for MOCA cognitive evaluation to determine baseline. volunteer services coordinator to discuss concerns regarding living situation with patient's son, Kevin today. Patient was reportedly wearing her pants backwards upon arrival to ER and had stool on her legs; concern for ability to remember to take her medications appropriately which patient admits that she forgets 1-2 times per week. 12/01/20; no overnight calls or concerns, no concerning EKG telemetry became euvolemic, she no longer had any chest pain or syncope episodes. She tolerated her diet well, cardio biomarkers remained normal. He was removed from Plavix and started on PPI, her hemoglobin although low stabilized at 8.7% upon discharge. She did have a positive occult stool but no maikel gross bleeding Vital signs on discharge, T: 97 BP 110/59 POX 95% RR 18 Medication changes/adjustments upon discharge --Discontinue Plavix --Omeprazole, 40 mg daily (step down in ~3months) newly added this admission --vitamin C 500mg PO daily (newly added this admission) --Needs Prolia Recommendations upon follow-up --Iron studies --Possible colonoscopy in 1 month if declining hct. --Prolia, last given 03/06/20. --Consider carotid artery studies --Assess readiness for assisted living Disposition --Patient will be discharged from [facility] today home with home health. --Patient will be in the company of her son daily as patient is high risk of readmission. volunteer services coordinator met with patient and family in regards to their significant concerns of the patient's inability to care for herself, she is nearing one-on-one supervision however she must not engage in hazardous activities such as cooking, driving due to her declining cognitive state. Recommended minimal of assisted living facility with a strong leaning toward LTC placement mainly due to recent lack of self-medication mgt, safety, and her significant depression/cognitive decline due to social isolation, lack of social engagements, activities etc. This is an order and a [id number] encounter for home health services to include nursing and Occupational Therapy. There is high risk for jorge ospitalization due to early signs of clinical dementia, social isolation and family dynamics. Suggested assist with teaching of medication management set up medications as there are newly discontinued and added medications. Please help develop an in-home therapy program for occupational therapy due to declining in cognitive status placing patient high risk for safety concerns. She will need to see optometry due to declining vision. She is considered homebound due to her declining cognitive state. - General Info Functional Status: Reports: Pain Controlled, Tolerating Diet, Ambulating, Urinating - Review of Systems General: Denies: Fever, Weakness HEENT: Reports: No Symptoms Pulmonary: Reports: No Symptoms Cardiovascular: Denies: Chest Pain, Palpitations, Orthopnea, PND, Edema, Lightheadedness Gastrointestinal: Denies: Abdominal Pain Genitourinary: Denies: Dysuria Skin: Reports: No Symptoms Neurological: Reports: Confusion. Denies: Dizziness, Paresthesia, Tremors, Weakness, Change in Speech Psychiatric: Reports: Confusion (some confusion) - Patient Data Vitals - Most Recent: Last Vital Signs Temp 97.0 F 12/01/20 05:51 Pulse 66 12/01/20 05:51 Resp 18 12/01/20 05:51 BP 110/59 L 12/01/20 05:51 Pulse Ox 95 12/01/20 05:51 Weight - Most Recent: 140 lb 4.8 oz I&O - Last 24 hours: Intake & Output 11/30/20 12/01/20 12/01/20 22:59 06:59 14:59 Intake Total 450 834 Output Total 1000 1400 Balance -550 -566 Lab Results - Last 24 hrs: Laboratory Results - last 24 hr 12/01/20 Range/Units 07:15 WBC 4.53 L (5.00-10.00) 10^3/uL RBC 3.31 L (3.80-5.50) 10^6/uL Hgb 8.7 L (12.0-16.0) g/dL Hct 28.3 L (37.0-47.0) % MCV 85.5 (82.0-92.0) fL MCH 26.3 L (27.0-31.0) pg MCHC 30.7 L (32.0-36.0) g/dL RDW 15.6 H (11.5-14.5) % Plt Count 244 (150-400) 10^3/uL MPV 10.5 H (7.4-10.4) fL Immature Gran % (Auto) 0.2 (0.0-5.0) % Neut % (Auto) 60.5 (50.0-70.0) % Lymph % (Auto) 19.9 L (20.0-40.0) % Mathews % (Auto) 10.6 H (2.0-8.0) % Eos % (Auto) 8.4 H (1.0-3.0) % Baso % (Auto) 0.4 (0.0-1.0) % Neut # (Auto) 2.74 (2.50-7.00) 10^3/uL Lymph # (Auto) 0.90 L (1.00-4.00) 10^3/uL Mathews # (Auto) 0.48 (0.10-0.80) 10^3/uL Eos # (Auto) 0.38 H (0.10-0.30) 10^3/uL Baso # (Auto) 0.02 (0.00-0.10) 10^3/uL Immature Gran # (Auto) 0.01 (0.00-0.50) 10^3/uL CHARLY Results - Last 24 hrs: Microbiology 11/29/20 19:14 Stool Occult Blood (CHARLY) - Final Stool / Feces Med Orders - Current: Current Medications Acetaminophen (Tylenol Arthritis Pain) 650 mg PO Q6H PRN PRN Reason: Pain Last Admin: 12/01/20 02:12 Dose: 650 mg Documented by: Ascorbic Acid (Vitamin C) 500 mg PO DAILY [facility] Last Admin: 12/01/20 08:26 Dose: 500 mg Documented by: Atropine Sulfate (Atropine 0.1 Mg/Ml) 0.5 - 1 mg IVPUSH ASDIRECTED PRN PRN Reason: Heart. Calcium Carbonate/Glycine (Calcium Carbonate) 600 mg PO BEDTIME [facility] Last Admin: 11/30/20 20:25 Dose: 600 mg Documented by: Cholecalciferol (Vitamin D3) 75 mcg PO BEDTIME [facility] Last Admin: 11/30/20 20:25 Dose: 75 mcg Documented by: Epinephrine HCl (Epinephrine 1:10,000) 1 mg IVPUSH ASDIRECTED PRN PRN Reason: Heart. Ferrous Sulfate (Ferrous Sulfate) 325 mg PO DAILY [facility] Last Admin: 12/01/20 08:25 Dose: 325 mg Documented by: Sodium Chloride (Normal Saline) 1,000 mls @ 50 mls/hr IV ASDIRECTED [facility] Last Admin: 12/01/20 08:22 Dose: 50 mls/hr Documented by: Lidocaine (Lidoderm 5%) 700 mg TOP DAILY [facility] Last Admin: 12/01/20 08:26 Dose: 700 mg Documented by: Lidocaine HCl (Xylocaine 2%) 60 - 90 mg IVPUSH ASDIRECTED PRN PRN Reason: Heart. Miscellaneous Information (Remove Patch) 1 ea TRDERM 2100 [facility] Last Admin: 11/30/20 20:28 Dose: 1 ea Documented by: Nitroglycerin (Nitrostat) 0.4 mg SL ASDIRECTED PRN PRN Reason: Heart. Fluoxetine [Prozac] (40 Mg Capsule - Ptom) 40 mg PO DAILY [facility] Last Admin: 12/01/20 08:27 Dose: 40 mg Documented by: Simvastatin [Zocor] (40 Mg - Ptom) 40 mg PO BEDTIME [facility] Last Admin: 11/30/20 20:26 Dose: 40 mg Documented by: Omeprazole (Omeprazole) 40 mg PO ACBREAKFAST [facility] Last Admin: 12/01/20 08:00 Dose: 40 mg Documented by: Quetiapine Fumarate (Seroquel) 25 mg PO BEDTIME [facility] Last Admin: 11/30/20 20:26 Dose: 25 mg Documented by: Sodium Chloride (Saline Flush) 10 ml FLUSH Q8HR PRN PRN Reason: keep vein open Discontinued Medications Aspirin (Aspirin) 324 mg PO ONETIME ONE Stop: 11/29/20 14:38 Last Admin: 11/29/20 14:45 Dose: 324 mg Documented by: Clopidogrel Bisulfate (Plavix) 75 mg PO DAILY [facility] Last Admin: 11/30/20 09:16 Dose: 75 mg Documented by: Enoxaparin Sodium (Lovenox) 40 mg SUBCUT Q24H [facility] Last Admin: 11/30/20 19:30 Dose: Not Given Documented by: Sodium Chloride (Saline Flush) 10 ml FLUSH Q8HR PRN PRN Reason: keep vein open - Exam Quality Assessment: Denies: Supplemental Oxygen General: Reports: Alert, Oriented, Cooperative, No Acute Distress Neck: Reports: Supple Lungs: Reports: Clear to Auscultation, Normal Respiratory Effort Cardiovascular: Reports: Regular Rate, Regular Rhythm GI/Abdominal Exam: Soft, No Distention Back Exam: Denies: CVA Tenderness (R) Neurological: Reports: Normal Speech, Normal Tone, Sensation Intact Psy/Mental Status: Reports: Alert, Depressed. Denies: Agitated, Hallucinations
== END 2020-12-01 13:05 | disposition home health service (06) ==
LOC: KA.ED 12:28 → KA.MS 14:11
PROVIDERS: ADMIT Physician Assistant Medical; ATTEND Nurse Practitioner Family
DX: R07.9 Chest pain, unspecified (principal); E78.00 Pure hypercholesterolemia, unspecified; M81.0 Age-related osteoporosis without current pathological fracture; R55 Syncope and collapse; D64.9 Anemia, unspecified; M54.9 Dorsalgia, unspecified; G89.29 Other chronic pain; K21.9 Gastro-esophageal reflux disease without esophagitis; Z20.822 Contact with and (suspected) exposure to COVID-19; Z95.0 Presence of cardiac pacemaker; Z88.8 Allergy status to other drugs, medicaments and biological substances; Z88.2 Allergy status to sulfonamides; Z79.899 Other long term (current) drug therapy
CPT/HCPCS: 36415; 70450; 71045; 80053; 81001; 82272; 82550; 82553; 82962; 83605; 83690; 84484; 85025; 93005; 96372; 97162-GP; 99284; 99285-25; A9270-GY; G0378; J1650; J7030; U0002

== ENCOUNTER 2020-12-05 20:48 | Emergency (ER) | payer MEDICARE, BC ==
[2020-12-05] MEDS ORDERED: Diphtheria,Pertussis(Acell),Tetanus Vaccine 0.5 ML Syringe IM ONE (20:55)
--- NOTE | 2020-12-05 20:55 | EDM.PDOC ---
ED HPI GENERAL MEDICAL PROBLEM - General Chief Complaint: General Stated Complaint: FALL Time Seen by Provider: 12/05/20 20:50 Source of Information: Reports: Patient History Limitations: Reports: No Limitations - History of Present Illness INITIAL COMMENTS - FREE TEXT/NARRATIVE: 85 YO WF WITH HISTORY OF FREQUENT FALLS WHO PRESENTS TO ER WITH SON AFTER FALL AT HOME. 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 PT COMPLAINING OF A SMALL LACERATION TO RIGHT EYEBROW AND GENERALIZED HEADACHE WITH SOME MILD NECK PAIN. PT DENIES ANY LOSS OF CONSCIOUSNESS. NO NAUSEA/VOMITING, NO DIZZINESS OR PHOTOPHOBIA. PT DENIES ANY EXTREMITY PAIN OR WEAKNESS. GCS-15. PT ALERT AND ORIENTED X 4. PT DENIES HIP/BACK OR PELVIS PAIN. PT ABLE TO AMBULATE WITHOUT DIFFICULTY. Onset Date: 12/05/20 Onset Time: 19:00 Location: Reports: Head, Neck Quality: Reports: Ache Severity: Mild Improves with: Reports: None Worsens with: Reports: None Associated Symptoms: Denies: Nausea/Vomiting 4 Pain Score (Numeric/FACES): 4 - Related Data Allergies Allergy/AdvReac Type Severity Reaction Status Date / Time donepezil HCl [From Aricept] Allergy Nausea and Verified 12/05/20 21:33 Vomiting midazolam HCl [From Versed] Allergy Seizure Verified 12/05/20 21:33 NSAIDS (Non-Steroidal Allergy Other Verified 12/05/20 21:33 Anti-Inflamma Sulfa (Sulfonamide Allergy Itching Verified 12/05/20 21:33 Antibiotics) tramadol Allergy Itching Verified 12/05/20 21:33 intrascalene injection Allergy Intermediate hard time Uncoded 11/29/20 13:24 waking up Home Meds: Home Meds Simvastatin [Zocor] 40 mg PO BEDTIME 06/10/17 [History] Calcium Carbonate/Vitamin D3 [Calcium 500-Vit D3 200 Tablet] 1 tab PO BEDTIME 08/10/19 [History] Cholecalciferol (Vitamin D3) [Vitamin D3] 3,000 units PO DAILY 08/10/19 [History] Denosumab [Prolia] 60 mg SQ ASDIRECTED 08/10/19 [History] Lidocaine 5% [Lidoderm 5%] 1 patch TOP DAILY #30 patch 08/12/19 [Rx] Ferrous Sulfate 325 mg PO DAILY 11/26/19 [History] Acetaminophen [Tylenol Arthritis] 650 mg PO Q6H PRN 11/29/20 [History] FLUoxetine [PROzac] 40 mg PO DAILY 11/29/20 [History] Oxybutynin Chloride [Ditropan Xl] 10 mg PO DAILY 11/29/20 [History] QUEtiapine [SEROquel] 25 mg PO BEDTIME 11/29/20 [History] hydrOXYzine pamoate [Vistaril] 25 mg PO Q6H PRN 11/29/20 [History] Ascorbic Acid [Vitamin C] 500 mg PO DAILY #30 tablet 12/01/20 [Rx] Omeprazole 40 mg PO ACBREAKFAST #30 cap.cr 12/01/20 [Rx] Past Medical History HEENT History: Reports: Cataract, Hard of Hearing, Impaired Vision Cardiovascular History: Reports: High Cholesterol, Pacemaker, Syncope Respiratory History: Reports: None Gastrointestinal History: Reports: GERD Genitourinary History: Reports: Urinary Incontinence Other Genitourinary History: dribbles COLORS CUSTODIAN History: Reports: Musculoskeletal History: Reports: Arthritis, Back Pain, Chronic, Osteoarthritis, Osteoporosis, RA Other Musculoskeletal History: Osteopenia, lumbar spinalosis Neurological History: Reports: Seizure, Vertigo Psychiatric History: Reports: None Endocrine/Metabolic History: Reports: Osteopenia, Osteoporosis Hematologic History: Reports: Anesthesia Reaction, Blood Transfusion(s) Immunologic History: Reports: None Oncologic (Cancer) History: Reports: None Dermatologic History: Reports: None - Infectious Disease History Infectious Disease History: Reports: Chicken Pox, Measles, Mumps, Pertussis (Whooping Cough), Rubella - Past Surgical History Head Surgeries/Procedures: Reports: None HEENT Surgical History: Reports: Cataract Surgery Cardiovascular Surgical History: Reports: None Respiratory Surgical History: Reports: None GI Surgical History: Reports: None Female Surgical History: Reports: None Endocrine Surgical History: Reports: None Neurological Surgical History: Reports: Other (See Below) Other Neurological Surgeries/Procedures: Coritisone injection to lumbar. Musculoskeletal Surgical History: Reports: Shoulder Surgery Oncologic Surgical History: Reports: None Dermatological Surgical History: Reports: None Social & Family History - Family History Family Medical History: No Pertinent Family History Cardiac: Reports: Hypertension, DC Respiratory: Reports: None GI: Reports: None : Reports: None OBGYN: Reports: None Musculoskeletal: Reports: Arthritis Neurological: Reports: None - Caffeine Use Caffeine Use: Reports: Coffee Caffeine Use Comment: usually drinks decaf but might have 1-2 cups caffeinated coffee with friends ED ROS GENERAL - Review of Systems Review Of Systems: See Below Constitutional: Reports: No Symptoms HEENT: Denies: Vision Change Respiratory: Reports: No Symptoms Cardiovascular: Reports: No Symptoms Endocrine: Reports: No Symptoms GI/Abdominal: Reports: No Symptoms : Reports: No Symptoms Musculoskeletal: Reports: Neck Pain Skin: Reports: Wound (2CM LACERATION TO RIGHT EYEBROW) Neurological: Reports: Headache. Denies: Confusion, Dizziness, Numbness, Paresthesia, Syncope, Difficulty Walking, Weakness Psychiatric: Reports: No Symptoms Hematologic/Lymphatic: Reports: No Symptoms Immunologic: Reports: No Symptoms ED EXAM, GENERAL - Physical Exam Exam: See Below Exam Limited By: No Limitations General Appearance: Alert, WD/WN, No Apparent Distress Eye Exam: Bilateral Eye: EOMI, PERRL Ears: Normal External Exam, Normal Canal, Hearing Grossly Normal, Normal TMs Nose: Normal Inspection, Normal Mucosa, No Blood Head: Normocephalic Neck: Supple, Full Range of Motion, Tender Midline Respiratory/Chest: No Respiratory Distress, Lungs Clear, Normal Breath Sounds, No Accessory Muscle Use, Chest Non-Tender Cardiovascular: Normal Peripheral Pulses, Regular Rate, Rhythm, No Edema, No Gallop, No JVD, No Murmur, No Rub GI/Abdominal: Normal Bowel Sounds, Soft, Non-Tender, No Organomegaly, No Distention, No Abnormal Bruit, No Mass Back Exam: Normal Inspection, Full Range of Motion, NT Extremities: Normal Inspection, Normal Range of Motion, Non-Tender, Normal Capillary Refill, No Pedal Edema Neurological: Alert, Oriented, CN II-XII Intact, Normal Cognition, Normal Gait, No Motor/Sensory Deficits Psychiatric: Normal Affect, Normal Mood Skin Exam: Warm, Dry, Intact, Normal Color, No Rash Lymphatic: No Adenopathy ED GENERAL MEDICAL PROCEDURES - Laceration/Wound Repair Right Face Lac/wound length in cm: 2 Appearance: Superficial Skin Prep: Chlorhexidine (Hibiciens), Saline Exploration/Debridement/Repair: Wound Explored Closed with: Wound Adhesive, Dermabond Sterile Dressing Applied: None Tetanus Status Addressed: Yes Complications: No Course - Vital Signs Last Recorded V/S: Last Vital Signs Temp 97.9 F 12/05/20 20:59 Pulse 64 12/05/20 20:59 Resp 20 12/05/20 21:30 BP 135/56 L 12/05/20 21:30 Pulse Ox 97 12/05/20 20:59 - Orders/Labs/Meds Orders: Active Orders 24 hr Category Date Time Status Vaccines to be Administered [RC] PER UNIT ROUTINE Care 12/05/20 20:55 Ordered Cervical Spine wo Cont [CT] Stat Exams 12/05/20 20:55 Ordered Head wo Cont [CT] Stat Exams 12/05/20 20:55 Ordered - Radiology Interpretation Free Text/Narrative:: CT HEAD-NAD CT CERVICAL- NAD Departure - Departure Time of Disposition: 21:58 Disposition: Home, Self-Care 01 Condition: Good Clinical Impression: Head injury Qualifiers: Encounter type: initial encounter Qualified Code(s): S09.90XA - Unspecified injury of head, initial encounter Cervical strain, acute Qualifiers: Encounter type: initial encounter Qualified Code(s): S16.1XXA - Strain of muscle, fascia and tendon at neck level, initial encounter Laceration of eyebrow Qualifiers: Encounter type: initial encounter Laterality: right Qualified Code(s): S01.111A - Laceration without foreign body of right eyelid and periocular area, initial encounter - Discharge Information Instructions: Head Injury, Adult, Cervical Strain and Sprain Rehab-SportsMed, Nonsutured Laceration Care Referrals: Nanda Tran MD [Primary Care Provider] - Forms: ED Department Discharge Additional Instructions: 1. DISCHARGE HOME 2. HEAD INJURY PRECAUTIONS GIVEN 3. STERI-STRIP CAN BE REMOVED IN 7 DAYS 4. FOLLOW UP WITH PCP FOR FURTHER EVALUATION AND TREATMENT 5. RETURN TO ER FOR WORSENING SYMPTOMS Sepsis Event Note (ED) - Focused Exam Vital Signs: Vital Signs Temp Pulse Resp BP Pulse Ox 12/05/20 21:30 20 135/56 L 12/05/20 20:59 97.9 F 64 20 150/69 H 97 - My Orders Last 24 Hours: My Active Orders 12/05/20 20:55 Vaccines to be Administered [RC] PER UNIT ROUTINE Cervical Spine wo Cont [CT] Stat Head wo Cont [CT] Stat - Assessment/Plan Last 24 Hours: My Active Orders 12/05/20 20:55 Vaccines to be Administered [RC] PER UNIT ROUTINE Cervical Spine wo Cont [CT] Stat Head wo Cont [CT] Stat Assessment:: 1. HEAD CONTUSION-MINOR HEAD INJURY 2. CERVICAL STRAIN 3. 2CM LACERATION TO RIGHT EYEBROW Plan: 1. DISCHARGE HOME 2. HEAD INJURY PRECAUTIONS GIVEN 3. STERI-STRIP CAN BE REMOVED IN 7 DAYS 4. FOLLOW UP WITH PCP FOR FURTHER EVALUATION AND TREATMENT 5. RETURN TO ER FOR WORSENING SYMPTOMS
[2020-12-05 21:00] VITALS: PULSE 64
[2020-12-05 21:46] VITALS: BP 135/56
[2020-12-05] MEDS ORDERED: Acetaminophen 500 MG Tab PO ONE (22:00)
--- NOTE | 2020-12-06 07:51 | CT ---
[id number] CT/CT Head WO IV EXAM: CT Head WO IV CLINICAL DATA: TRAUMA COMPARISON: CORRELATION IS MADE WITH NOVEMBER 29, 2020 FINDINGS: There is no mass or mass effect. There is no hemorrhage or hydrocephalus. There are no extra-axial fluid collections. There are no sites of abnormal attenuation. IMPRESSION: NO PLAIN CT EVIDENCE OF ACUTE INTRACRANIAL PROCESS. Blaine Servin MD 12/06/20 [id number] Thank you for allowing us to participate in the care of your patient.
--- NOTE | 2020-12-06 07:53 | CT ---
[id number] CT/CT Cervical Spine WO IV Exam: CT Cervical Spine WO IV Clinical Data: TRAUMA COMPARISON: NO PREVIOUS SIMILAR EXAM IS AVAILABLE FINDINGS: No fracture or subluxation is seen There are multilevel moderate degenerative changes The prevertebral soft tissues are unremarkable IMPRESSION: NO FRACTURE OR SUBLUXATION Blaine Servin MD 12/06/20 [phone] Thank you for allowing us to participate in the care of your patient.
== END 2020-12-05 22:10 | disposition home or self-care (01) ==
LOC: KA.ED 20:48
DX: S01.111A Laceration without foreign body of right eyelid and periocular area, initial encounter (principal); S16.1XXA Strain of muscle, fascia and tendon at neck level, initial encounter; S09.90XA Unspecified injury of head, initial encounter; E78.00 Pure hypercholesterolemia, unspecified; K21.9 Gastro-esophageal reflux disease without esophagitis; Z79.899 Other long term (current) drug therapy; Z88.8 Allergy status to other drugs, medicaments and biological substances; Z88.2 Allergy status to sulfonamides; Z88.5 Allergy status to narcotic agent; Z23 Encounter for immunization; W22.8XXA Striking against or struck by other objects, initial encounter; Y92.009 Unspecified place in unspecified non-institutional (private) residence as the place of occurrence of the external cause
CPT/HCPCS: 12011; 70450; 72125; 90471; 90715; 99283; 99284-25; A9270-GY

== ENCOUNTER 2020-12-20 03:43 | Emergency (ER) | payer MEDICARE, BC ==
[2020-12-20 04:40] VITALS: PULSE 60
[2020-12-20] MEDS ORDERED: Acetaminophen 500 MG Tab PO ONE (04:47)
--- NOTE | 2020-12-20 04:47 | EDM.PDOC ---
ED HPI GENERAL MEDICAL PROBLEM - General Chief Complaint: Chest Pain Stated Complaint: chest pain Time Seen by Provider: 12/20/20 04:01 Source of Information: Reports: Patient, EMS History Limitations: Reports: No Limitations - History of Present Illness INITIAL COMMENTS - FREE TEXT/NARRATIVE: Patient presents with pain in right chest wall. Pain started at 0200 across her chest that was 10/10 and sharp. It was worse with deep breaths. She says it felt like pleuritic pain she has had in the past. She lay in bed for about 30 minutes before calling ambulance. The took a Tums but it didn't help; drinking water made it worse. The pain started to subside while riding in the ambulance. She says she doesn't usually eat anything before bed but had eaten a bowl of cereal tonight, she doesn't know if it gave her indigestion. That pain is gone now but she still has pain under her right breast. She says she fell two days ago and landed on her back and right side which caused some pain in this region. - Related Data Allergies Allergy/AdvReac Type Severity Reaction Status Date / Time donepezil HCl [From Aricept] Allergy Nausea and Verified 12/20/20 04:18 Vomiting midazolam HCl [From Versed] Allergy Seizure Verified 12/20/20 04:18 NSAIDS (Non-Steroidal Allergy Other Verified 12/20/20 04:18 Anti-Inflamma Sulfa (Sulfonamide Allergy Itching Verified 12/20/20 04:18 Antibiotics) tramadol Allergy Itching Verified 12/20/20 04:18 intrascalene injection Allergy Intermediate hard time Uncoded 12/20/20 04:18 waking up Home Meds: Home Meds Simvastatin [Zocor] 40 mg PO BEDTIME 06/10/17 [History] Calcium Carbonate/Vitamin D3 [Calcium 500-Vit D3 200 Tablet] 1 tab PO BEDTIME 08/10/19 [History] Cholecalciferol (Vitamin D3) [Vitamin D3] 3,000 units PO DAILY 08/10/19 [History] Denosumab [Prolia] 60 mg SQ ASDIRECTED 08/10/19 [History] Lidocaine 5% [Lidoderm 5%] 1 patch TOP DAILY #30 patch 08/12/19 [Rx] Ferrous Sulfate 325 mg PO DAILY 11/26/19 [History] Acetaminophen [Tylenol Arthritis] 650 mg PO Q6H PRN 11/29/20 [History] FLUoxetine [PROzac] 40 mg PO DAILY 11/29/20 [History] Oxybutynin Chloride [Ditropan Xl] 10 mg PO DAILY 11/29/20 [History] QUEtiapine [SEROquel] 25 mg PO BEDTIME 11/29/20 [History] hydrOXYzine pamoate [Vistaril] 25 mg PO Q6H PRN 11/29/20 [History] Omeprazole 40 mg PO ACBREAKFAST #30 cap.cr 12/01/20 [Rx] Clopidogrel [Plavix] 75 mg PO DAILY 12/20/20 [History] Gabapentin [Neurontin] 100 mg PO DAILY 12/20/20 [History] Past Medical History HEENT History: Reports: Cataract, Hard of Hearing, Impaired Vision Cardiovascular History: Reports: High Cholesterol, Pacemaker, Syncope Respiratory History: Reports: None Gastrointestinal History: Reports: GERD Genitourinary History: Reports: Urinary Incontinence Other Genitourinary History: dribbles [employer]ANDLE [employer]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: 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: Musculoskeletal History: Reports: Arthritis, Back Pain, Chronic, Osteoarthritis, Osteoporosis, RA Other Musculoskeletal History: Osteopenia, lumbar spinalosis Neurological History: Reports: Seizure, Vertigo Psychiatric History: Reports: None Endocrine/Metabolic History: Reports: Osteopenia, Osteoporosis Hematologic History: Reports: Anesthesia Reaction, Blood Transfusion(s) Immunologic History: Reports: None Oncologic (Cancer) History: Reports: None Dermatologic History: Reports: None - Infectious Disease History Infectious Disease History: Reports: Chicken Pox, Measles, Mumps, Pertussis (Whooping Cough), Rubella - Past Surgical History Head Surgeries/Procedures: Reports: None HEENT Surgical History: Reports: Cataract Surgery Cardiovascular Surgical History: Reports: None Respiratory Surgical History: Reports: None GI Surgical History: Reports: None Female Surgical History: Reports: None Endocrine Surgical History: Reports: None Neurological Surgical History: Reports: Other (See Below) Other Neurological Surgeries/Procedures: Coritisone injection to lumbar. Musculoskeletal Surgical History: Reports: Shoulder Surgery Oncologic Surgical History: Reports: None Dermatological Surgical History: Reports: None Social & Family History - Family History Family Medical History: No Pertinent Family History Cardiac: Reports: Hypertension, [place] Respiratory: Reports: None GI: Reports: None : Reports: None OBGYN: Reports: None Musculoskeletal: Reports: Arthritis Neurological: Reports: None - Tobacco Use Tobacco Use Status *Q: Unknown Ever Used Tobacco - Caffeine Use Caffeine Use: Reports: Coffee, Soda Caffeine Use Comment: usually drinks decaf but might have 1-2 cups caffeinated coffee with friends ED ROS GENERAL - Review of Systems Review Of Systems: See Below Constitutional: Denies: Fever, Chills, Malaise, Weakness HEENT: Denies: Ear Pain, Throat Pain, Vision Change Respiratory: Reports: Shortness of Breath (she felt short of breath with the worst pain and it hurt to breathe deeply). Denies: Wheezing, Cough Cardiovascular: Reports: Chest Pain. Denies: Lightheadedness, Syncope GI/Abdominal: Denies: Abdominal Pain, Diarrhea, Vomiting : Denies: Dysuria, Flank Pain Musculoskeletal: Denies: Neck Pain, Shoulder Pain, Arm Pain, Back Pain Skin: Denies: Cyanosis, Jaundice, Mottled, Pallor, Diaphoresis Neurological: Denies: Confusion, Dizziness, Headache, Seizure, Syncope, Trouble Speaking, Difficulty Walking Psychiatric: Denies: Agitation, Anxiety Hematologic/Lymphatic: Reports: Anemia (She says she recently started iron supplements for this. Her hemoglobin was low and she had some dehydration at her last office visit.) ED EXAM, GENERAL - Physical Exam Exam: See Below Exam Limited By: No Limitations General Appearance: Alert, WD/WN, No Apparent Distress Eye Exam: Bilateral Eye: EOMI, Normal Inspection, PERRL Ears: Normal External Exam, Hearing Grossly Normal Nose: Normal Inspection, No Blood Throat/Mouth: Normal Inspection, Normal Lips, Normal Voice, No Airway Compromise Head: Atraumatic, Normocephalic Neck: Normal Inspection, Full Range of Motion Respiratory/Chest: No Respiratory Distress, Lungs Clear, Normal Breath Sounds (full and equal), No Accessory Muscle Use, Other (Palpation of chest wall reveals definite tenderness of a small area in right anterior chest wall slightly above right breast. No crepitus or defect evident. ). No: Decreased Breath Sounds, Crackles, Rales, Rhonchi, Wheezing, Stridor Cardiovascular: Normal Peripheral Pulses, Regular Rate, Rhythm, No Edema, No Murmur GI/Abdominal: Normal Bowel Sounds, Soft, Non-Tender, No Organomegaly, No Distention, No Abnormal Bruit, No Mass Back Exam: Normal Inspection, Full Range of Motion. No: CVA Tenderness (L), CVA Tenderness (R) Extremities: Normal Inspection, Normal Range of Motion, Non-Tender Neurological: Alert, Oriented, Normal Cognition, No Motor/Sensory Deficits Psychiatric: Normal Affect, Normal Mood Skin Exam: Warm, Dry, Intact, Normal Color, No Rash. No: Pallor Course - Vital Signs Last Recorded V/S: Last Vital Signs Temp 98.0 F 12/20/20 03:47 Pulse 62 12/20/20 04:10 Resp 18 12/20/20 04:10 BP 120/62 12/20/20 04:10 Pulse Ox 97 12/20/20 04:10 - Orders/Labs/Meds Orders: Active Orders 24 hr Category Date Time Status EKG Documentation Completion [RC] ASDIRECTED Care 12/20/20 04:29 Ordered EKG 12 Lead [EK] Stat Ther 12/20/20 04:29 Ordered - Re-Assessments/Exams Free Text/Narrative Re-Assessment/Exam: 12/20/20 05:17 Tylenol 1000 mg given. Patient feeling much better. Discussed findings and treatment plan with patient. She is stable at discharge. Departure - Departure Time of Disposition: 05:11 Disposition: Home, Self-Care 01 Condition: Good Clinical Impression: Right-sided chest wall pain - Discharge Information Additional Instructions: Drink 8 cups of water daily. Take Tylenol 500-1000 mg for pain if needed up to 3 times a day. Follow up with your PCP in a few days for recheck. Sooner if worsening or go to ER. Sepsis Event Note (ED) - Evaluation Sepsis Screening Result: No Definite Risk - Focused Exam Vital Signs: Vital Signs Temp Pulse Resp BP Pulse Ox 12/20/20 04:10 62 18 120/62 97 12/20/20 03:47 98.0 F 62 18 130/63 98 - My Orders Last 24 Hours: My Active Orders 12/20/20 04:29 EKG Documentation Completion [RC] ASDIRECTED EKG 12 Lead [EK] Stat - Assessment/Plan Last 24 Hours: My Active Orders 12/20/20 04:29 EKG Documentation Completion [RC] ASDIRECTED EKG 12 Lead [EK] Stat
[2020-12-20 05:03] VITALS: BP 145/69
== END 2020-12-20 05:35 | disposition home or self-care (01) ==
LOC: KA.ED 03:43
DX: R07.89 Other chest pain (principal); R06.02 Shortness of breath; E78.00 Pure hypercholesterolemia, unspecified; K21.9 Gastro-esophageal reflux disease without esophagitis; Z88.8 Allergy status to other drugs, medicaments and biological substances; Z88.4 Allergy status to anesthetic agent; Z88.6 Allergy status to analgesic agent; Z88.2 Allergy status to sulfonamides; Z88.5 Allergy status to narcotic agent; Z88.7 Allergy status to serum and vaccine; Z79.02 Long term (current) use of antithrombotics/antiplatelets; Z79.899 Other long term (current) drug therapy
CPT/HCPCS: 93005; 99284; 99285-25; A9270-GY

== ENCOUNTER 2021-01-03 07:00 | Day surgery (SDC) | payer MEDICARE, BC ==
[2021-01-03] MEDS ORDERED: Glycopyrrolate 0.2 MG/ML SDV IVPUSH ONE (07:01)
[2021-01-03] MEDS ORDERED: Lidocaine 2% 5 ML SDV IV ONE (07:01)
[2021-01-03] MEDS ORDERED: Propofol 200 MG/20 ML SDV IV ONE (07:01)
[2021-01-03] MEDS ORDERED: Sodium Chloride 0.9% 10 ML Syringe FLUSH PRN (08:00)
[2021-01-03] MEDS ORDERED: Lactated Ringers 1,000 ML IV SCH (08:00)
[2021-01-03] MEDS ORDERED: Sodium Phosphate,Monobasic/Sodium Phosphate,Dibasic Enema 133 ML Bottle RECTAL ONE (09:21)
[2021-01-03] MEDS ORDERED: Propofol 200 MG/20 ML SDV ONE (10:05)
[2021-01-03] MEDS ORDERED: Midazolam 1 MG/ML 2 ML SDV ONE (10:05)
[2021-01-03] MEDS ORDERED: Glycopyrrolate 0.2 MG/ML SDV ONE (10:14)
[2021-01-03] MEDS ORDERED: Lidocaine 2% 5 ML SDV ONE (10:14)
[2021-01-03] MEDS ORDERED: Lactated Ringers 1,000 ML ONE (10:53)
--- NOTE | 2021-01-03 11:05 | PCM.OPNOTE ---
- General Post-Op/Procedure Note Date of Surgery/Procedure: 01/03/21 Operative Procedure(s): Upper GI endoscopy and colonoscopy with biopsies. 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 Pre Op Diagnosis: Persistent anemia. Iron deficiency anemia. 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 Anesthesia Technique: MAC Primary Surgeon: Karrie Nolan Complications: None Condition: Good Free Text/Narrative:: INFORMED CONSENT: Patient is here today for elective upper GI endoscopy. All aspects of this procedure have been discussed with the patient. All possible complications also, including possibility of perforation, infection, pain, bleeding, numbness of the throat, swallowing difficulty and unknown complications. In the event of perforation the patient may need surgical exploration to repair the defect. The patient understands fully well. Patient did not have any further questions for me at the end of my interview. The patient wishes for me to proceed. INSTRUMENT USED: Video gastroscope ANESTHESIA: [MAC] ASA CLASSIFICATION: [2] PROCEDURE PERFORMED: [Upper gastrointestinal endoscopy] PHARYNX: Normal. ESOPHAGUS: Normal. Proximal: Normal. Middle: Normal. Lower: Normal. GE Junction: Normal. STOMACH: Normal. Cardia: Normal. Fundus: Normal. Lesser Curvature: Normal. Greater Curvature: Normal. Antrum: Normal. Pylorus: Normal. DUODENUM: Normal. First Part: Normal. Second Part: Normal. Third Part: Normal. RETROFLEXION: Normal. BIOPSY: None. TOLERANCE: Excellent. COMPLICATIONS: None. INFORMED CONSENT: Patient is here today for elective colonoscopy. All aspects of this procedure have been discussed with the patient. All possible complications also, including possibility of perforation, infection, pain, bleeding and unknown complications. In the event of perforation patient may need to have abdominal exploration, colon resection, colostomy and even was discussed. Anesthetic complications were handled by anesthesia department. The patient understands fully well. Patient did not have any further questions for me at the end of my interview. The patient wishes for me to proceed. 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 ASA CLASSIFICATION: [2] ANESTHESIA: Continuous EKG, oximetry and intermittent blood pressure and respi ratory monitoring were performed throughout the procedure. IV Versed and Fentanyl were administered. PROCEDURE PERFORMED: Colonoscopy POSITIONS OF PATIENT: Left lateral. RECTUM: Normal. SIGMOID COLON: Normal. DESCENDING COLON: Normal. SPLENIC FLEXURE: Normal. TRANSVERSE COLON: Normal. HEPATIC FLEXURE: Normal. ASCENDING COLON: Large circumferential 7 cm tumor noted in this area. The tumor involves three quarters of the lumen. Biopsies were taken. CECUM: Normal. ILEOCECAL VALVE: Normal. BIOPSY: None. TOLERANCE: Excellent. COMPLICATIONS: None.
[2021-01-03 14:17] VITALS: PULSE 74
[2021-01-03 14:18] VITALS: BP 146/69
== END 2021-01-03 13:20 | disposition home or self-care (01) ==
LOC: KA.SDS 07:00
PROVIDERS: ATTEND Family Medicine
DX: C18.2 Malignant neoplasm of ascending colon (principal); D50.9 Iron deficiency anemia, unspecified; Z01.812 Encounter for preprocedural laboratory examination; Z20.822 Contact with and (suspected) exposure to COVID-19; E78.5 Hyperlipidemia, unspecified; Z95.0 Presence of cardiac pacemaker; M81.0 Age-related osteoporosis without current pathological fracture; N95.2 Postmenopausal atrophic vaginitis; H81.03 Meniere's disease, bilateral; H81.10 Benign paroxysmal vertigo, unspecified ear; G25.81 Restless legs syndrome; F33.1 Major depressive disorder, recurrent, moderate; M54.5 Low back pain; G89.29 Other chronic pain; M48.54XA Collapsed vertebra, not elsewhere classified, thoracic region, initial encounter for fracture; Z79.899 Other long term (current) drug therapy; Z88.2 Allergy status to sulfonamides; Z88.6 Allergy status to analgesic agent; Z98.890 Other specified postprocedural states
CPT/HCPCS: 00813; 88305; 88341; 88342; J2704; J3490; J7120; U0002

== ENCOUNTER 2021-04-04 10:14 | Emergency (ER) | payer MEDICARE, BC ==
--- NOTE | 2021-04-04 10:19 | EDM.PDOC ---
ED HPI GENERAL MEDICAL PROBLEM - General Chief Complaint: Neurological Problem Stated Complaint: CONFUSED Time Seen by Provider: 04/04/21 10:19 Source of Information: Reports: Patient, Family History Limitations: Reports: Altered Mental Status - History of Present Illness INITIAL COMMENTS - FREE TEXT/NARRATIVE: Nori, 86-year-old female, presents by private vehicle accompanied by her [id number] today after noting significant Confusion. She gives me details of her passing away a year ago and that she had a conversation with him sitting on the couch. She was having company for the fourth which the daughter acknowledges did occur. She states that 3 times she had left the room to get lunch or to get something for her guest and when she returned they were gone. She also states that her grandchildren were staying overnight and could not find them. The daughter relates to this that there were blankets on the floor but the grandchildren had not been staying at her house. 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 She states her urine is "giving her trouble at times" as if she drinks as much water as she is supposed to, then she is constantly running to the bathroom. She thinks today is 02 April, that yesterday was the occurrence of the fourth in the company was there throughout this time. When I asked her what was going on on the initial visitation she said it is a pleasure to meet you and my family tells me I am going goofy. I reply asking where that is to which she laughs and says I hope they are just joking. Review of systems is limited secondary of confusion and forgetfulness. Review of [place] shows forgetfulness of past months with assisted living recommendation. Onset: Gradual Duration: Day(s):, Getting Worse Location: Reports: Head generalized Pain Score (Numeric/FACES): 6 - Related Data Allergies Allergy/AdvReac Type Severity Reaction Status Date / Time donepezil HCl [From Aricept] Allergy Nausea and Verified 04/04/21 10:31 Vomiting midazolam HCl [From Versed] Allergy Seizure Verified 04/04/21 10:31 NSAIDS (Non-Steroidal Allergy Other Verified 04/04/21 10:31 Anti-Inflamma Sulfa (Sulfonamide Allergy Itching Verified 04/04/21 10:31 Antibiotics) tramadol Allergy Itching Verified 04/04/21 10:31 intrascalene injection Allergy Intermediate hard time Uncoded 04/04/21 10:31 waking up Home Meds: Home Meds Simvastatin [Zocor] 40 mg PO BEDTIME 06/10/17 [History] Calcium Carbonate/Vitamin D3 [Calcium 500-Vit D3 200 Tablet] 1 tab PO BEDTIME 08/10/19 [History] Cholecalciferol (Vitamin D3) [Vitamin D3] 3,000 units PO DAILY 08/10/19 [History] Denosumab [Prolia] 60 mg SQ ASDIRECTED 08/10/19 [History] Lidocaine 5% [Lidoderm 5%] 1 patch TOP DAILY #30 patch 08/12/19 [Rx] Ferrous Sulfate 325 mg PO DAILY 11/26/19 [History] Acetaminophen [Tylenol Arthritis] 650 mg PO Q6H PRN 11/29/20 [History] FLUoxetine [PROzac] 40 mg PO DAILY 11/29/20 [History] Oxybutynin Chloride [Ditropan Xl] 10 mg PO DAILY 11/29/20 [History] QUEtiapine [SEROquel] 25 mg PO BEDTIME 11/29/20 [History] hydrOXYzine pamoate [Vistaril] 25 mg PO Q6H PRN 11/29/20 [History] Omeprazole 40 mg PO ACBREAKFAST #30 cap.cr 12/01/20 [Rx] Clopidogrel [Plavix] 75 mg PO DAILY 12/20/20 [History] Iron Polysaccharides Complex [Ferrex 150] 150 mg PO Q48H 01/02/21 [History] Past Medical History HEENT History: Reports: Cataract, Hard of Hearing, Impaired Vision Cardiovascular History: Reports: Heart Failure, High Cholesterol, Pacemaker, Syncope Respiratory History: Reports: None Gastrointestinal History: Reports: GERD, Hemorrhoids, PUD, Other (See Below) (Gi tumor bowel) Genitourinary History: Reports: Urinary Incontinence Other Genitourinary History: dribbles 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: Musculoskeletal History: Reports: Arthritis, Back Pain, Chronic, Muscular Dystrophy, Osteoarthritis, Osteoporosis, RA Other Musculoskeletal History: Osteopenia, lumbar spinalosis Neurological History: Reports: Migraines, Seizure, Vertigo Psychiatric History: Reports: ADD, Anxiety, Depression, Eating Disorders, Mood Swings Endocrine/Metabolic History: Reports: Osteopenia, Osteoporosis Hematologic History: Reports: Anesthesia Reaction, Blood Transfusion(s) Immunologic History: Reports: None Oncologic (Cancer) History: Reports: Bladder, Ovarian, Thyroid Dermatologic History: Reports: None - Infectious Disease History Infectious Disease History: Reports: Chicken Pox, Measles, Mumps, Pertussis (Whooping Cough), Rheumatic Fever - Past Surgical History Head Surgeries/Procedures: Reports: None HEENT Surgical History: Reports: Cataract Surgery, Retinal Cardiovascular Surgical History: Reports: Pacer Respiratory Surgical History: Reports: None GI Surgical History: Reports: Colonoscopy, Hernia, Abdominal, Other (See Below) (large bowel ascending hemicoloctomy secondary mass) Other GI Surgeries/Procedures: hemorrhoids Female Surgical History: Reports: None Endocrine Surgical History: Reports: Thyroid Biopsy Neurological Surgical History: Reports: Scoliosis, Other (See Below) Other Neurological Surgeries/Procedures: Coritisone injection to lumbar. Musculoskeletal Surgical History: Reports: Hip Replacement, Shoulder Surgery Oncologic Surgical History: Reports: None Dermatological Surgical History: Reports: None Social & Family History - Family History Family Medical History: No Pertinent Family History Cardiac: Reports: Hypertension, [place] Respiratory: Reports: None GI: Reports: None : Reports: None OBGYN: Reports: None Musculoskeletal: Reports: Arthritis Neurological: Reports: None - Caffeine Use Caffeine Use: Reports: Coffee, Soda Caffeine Use Comment: usually drinks decaf but might have 1-2 cups caffeinated coffee with friends - Recreational Drug Use Recreational Drug Use: No Drug Use in Last 12 Months: No ED ROS GENERAL - Review of Systems Review Of Systems: Comprehensive ROS is negative, except as noted in HPI. ED EXAM, GENERAL - Physical Exam Exam: See Below Free Text/Narrative:: Alert and conversive, demonstrating no cyanosis nor pallor, no distress. She is overall cheerful in the conversation. HEENT is negative to discharge or deformity there is mild cerumen in right canal, left is predominantly clean, no evidence of membrane irritation. Nasal passages are patent. Oral cavity is somewhat dry in appearance with no erythema. Neck is soft supple I do not appreciate JVD nor any carotid bruit. Thorax is clear mildly diminished bases likely due to her positioning and inspiratory effort with no wheezes nor crackles. Cardiac is regular radial pulse correlates it is a paced rhythm per bedside monitor as well as confirmed on EKG. Abdomen is soft bowel sounds present there is no tenderness there is a mid abdominal surgical incision line is well-healed from the [place] hemicolectomy right side cancer is ascending colon mass. rectal is deferred. There is no edema to the extremities. She is able to move about upon command and shows no deficit in her strength nor motion. Significant confusion as stated in the HPI with very poor recollection of the details. #1 Interpretation EKG Date: 04/04/21 Time: 10:35 Rhythm: Other (Paced) Rate (Beats/Min): 60 Comparison: No Change (Comparison 12/20/2020) Course - Vital Signs Last Recorded V/S: Last Vital Signs Temp 97 F 04/04/21 10:20 Pulse 60 04/04/21 11:00 Resp 12 04/04/21 11:00 BP 159/78 H 04/04/21 11:00 Pulse Ox 98 04/04/21 11:00 - Orders/Labs/Meds Orders: Active Orders 24 hr Category Date Time Status EKG Documentation Completion [RC] ASDIRECTED Care 04/04/21 10:27 Active Peripheral IV Care [RC] . DIRECTED Care 04/04/21 10:31 Active CULTURE URINE [RM] Urgent Lab 04/04/21 10:35 Received Sodium Chloride 0.9% [Saline Flush] Med 04/04/21 10:30 Active 10 ml FLUSH Q8HR PRN Peripheral IV Insertion Adult [OM.PC] Routine Oth 04/04/21 10:31 Ordered EKG 12 Lead [EK] Urgent Ther 04/04/21 10:27 Ordered EKG 12 Lead [EK] Urgent Ther 04/04/21 10:28 Ordered Medication Orders Sodium Chloride (Sodium Chloride 0.9% 10 Ml Syringe) 10 ml FLUSH Q8HR PRN PRN Reason: keep vein open Labs: Laboratory Tests 04/04/21 04/04/21 04/04/21 Range/Units 10:35 10:40 10:40 WBC 6.50 (5.00-10.00) 10^3/uL RBC 4.44 (3.80-5.50) 10^6/uL Hgb 11.2 L D (12.0-16.0) g/dL Hct 36.2 L (37.0-47.0) % MCV 81.5 L D (82.0-92.0) fL MCH 25.2 L (27.0-31.0) pg MCHC 30.9 L (32.0-36.0) g/dL RDW 18.9 H (11.5-14.5) % Plt Count 202 (150-400) 10^3/uL MPV 10.7 H (7.4-10.4) fL Immature Gran % (Auto) 0.2 (0.0-5.0) % Neut % (Auto) 70.6 H (50.0-70.0) % Lymph % (Auto) 18.0 L (20.0-40.0) % [place] % (Auto) 9.7 H (2.0-8.0) % Eos % (Auto) 1.2 (1.0-3.0) % Baso % (Auto) 0.3 (0.0-1.0) % Neut # (Auto) 4.59 (2.50-7.00) 10^3/uL Lymph # (Auto) 1.17 (1.00-4.00) 10^3/uL [place] # (Auto) 0.63 (0.10-0.80) 10^3/uL Eos # (Auto) 0.08 L (0.10-0.30) 10^3/uL Baso # (Auto) 0.02 (0.00-0.10) 10^3/uL Immature Gran # (Auto) 0.01 (0.00-0.50) 10^3/uL Sodium 146 H (136-145) mmol/L Potassium 3.8 (3.5-5.1) mmol/L Chloride 109 H (98-107) mmol/L Carbon Dioxide 27.6 (21.0-32.0) mmol/L Anion Gap 13.2 (5-15) mmol/L BUN 36 H (7-18) mg/dL Creatinine 1.09 (0.51-1.17) mg/dL Est Cr Clr Drug Dosing 30.65 mL/min Estimated GFR (MDRD) 48 mL/min Glucose 106 (70-140) mg/dL Lactic Acid (0.4-2.0) mmol/L Calcium 8.8 (8.7-10.3) mg/dL Total Bilirubin < 0.1 L (0.2-1.0) mg/dL AST 14 L (15-37) U/L ALT 22 (14-63) U/L Alkaline Phosphatase 80 (46-116) U/L Troponin I High Sens 15.000 (0-51.000) pg/mL Total Protein 6.8 (6.4-8.2) g/dL Albumin 3.57 (3.40-5.00) g/dL Specimen Type Urincc Urine Color Yellow (YELLOW) Urine Appearance Clear (CLEAR) Urine pH 5.5 (5.0-9.0) Ur Specific [facility] >= 1.030 (1.005-1.030) Urine Protein Negative (NEGATIVE) mg/dL Urine Glucose (UA) Negative (NEGATIVE) mg/dL Urine Ketones Negative (NEGATIVE) mg/dL Urine Occult Blood Trace-intact H (NEGATIVE) Urine Nitrite Negative (NEGATIVE) Urine Bilirubin Negative (NEGATIVE) Urine Urobilinogen 0.2 (0.2-1.0) E.U./dL Ur Leukocyte Esterase Small H (NEGATIVE) Urine RBC 5-10 H (0-5) /HPF Urine WBC 20-30 H (0-5) /HPF Ur Epithelial Cells Few /LPF Urine Bacteria Few (NONE TO FEW) /HPF 04/04/21 Range/Units 10:40 WBC (5.00-10.00) 10^3/uL RBC (3.80-5.50) 10^6/uL Hgb (12.0-16.0) g/dL Hct (37.0-47.0) % MCV (82.0-92.0) fL MCH (27.0-31.0) pg MCHC (32.0-36.0) g/dL RDW (11.5-14.5) % Plt Count (150-400) 10^3/uL MPV (7.4-10.4) fL Immature Gran % (Auto) (0.0-5.0) % Neut % (Auto) (50.0-70.0) % Lymph % (Auto) (20.0-40.0) % [place] % (Auto) (2.0-8.0) % Eos % (Auto) (1.0-3.0) % Baso % (Auto) (0.0-1.0) % Neut # (Auto) (2.50-7.00) 10^3/uL Lymph # (Auto) (1.00-4.00) 10^3/uL [place] # (Auto) (0.10-0.80) 10^3/uL Eos # (Auto) (0.10-0.30) 10^3/uL Baso # (Auto) (0.00-0.10) 10^3/uL Immature Gran # (Auto) (0.00-0.50) 10^3/uL Sodium (136-145) mmol/L Potassium (3.5-5.1) mmol/L Chloride (98-107) mmol/L Carbon Dioxide (21.0-32.0) mmol/L Anion Gap (5-15) mmol/L BUN (7-18) mg/dL Creatinine (0.51-1.17) mg/dL Est Cr Clr Drug Dosing mL/min Estimated GFR (MDRD) mL/min Glucose (70-140) mg/dL Lactic Acid 0.7 (0.4-2.0) mmol/L Calcium (8.7-10.3) mg/dL Total Bilirubin (0.2-1.0) mg/dL AST (15-37) U/L ALT (14-63) U/L Alkaline Phosphatase (46-116) U/L Troponin I High Sens (0-51.000) pg/mL Total Protein (6.4-8.2) g/dL Albumin (3.40-5.00) g/dL Specimen Type Urine Color (YELLOW) Urine Appearance (CLEAR) Urine pH (5.0-9.0) Ur Specific [facility] (1.005-1.030) Urine Protein (NEGATIVE) mg/dL Urine Glucose (UA) (NEGATIVE) mg/dL Urine Ketones (NEGATIVE) mg/dL Urine Occult Blood (NEGATIVE) Urine Nitrite (NEGATIVE) Urine Bilirubin (NEGATIVE) Urine Urobilinogen (0.2-1.0) E.U./dL Ur Leukocyte Esterase (NEGATIVE) Urine RBC (0-5) /HPF Urine WBC (0-5) /HPF Ur Epithelial Cells /LPF Urine Bacteria (NONE TO FEW) /HPF Meds: Medications Generic Name Dose Route Start Last Admin Trade Name Freq PRN Reason Stop Dose Admin Sodium Chloride 10 ml 04/04/21 10:30 Sodium Chloride 0.9% 10 Ml Syringe FLUSH Q8HR PRN keep vein open - Re-Assessments/Exams Free Text/Narrative Re-Assessment/Exam: 04/04/21 11:42 Ambulation to the bathroom for the urinalysis sample causes no discomfort and no dizziness. She seems fairly well stable on her feet. 04/04/21 11:42 Discussion with her daughter The results with no acute findings. I recommend consideration for penitentiary placement if this activity continues or seems to worsen. As there is no timeline for the acceptance to the assisted living safety concerns need to be maintained and considered in her residential living. Departure - Departure Time of Disposition: 11:40 Disposition: Home, Self-Care 01 Condition: Fair Clinical Impression: Confusion - Discharge Information *PRESCRIPTION DRUG MONITORING PROGRAM REVIEWED*: Not Applicable *COPY OF PRESCRIPTION DRUG MONITORING REPORT IN PATIENT BRENDA: Not Applicable Referrals: Nanda Tran MD [Primary Care Provider] - Sonya Jaquez PA-C [Physician Lemon Picker] - Forms: ED Department Discharge Additional Instructions: Your lab work all returns showing only the evidence of mild dehydration. This is not severe enough requiring hospitalization and that you may correct this by increasing your fluid intake. There is no evidence of infection. Your chest x-ray is fine The CT of your brain was also showing no evidence of any acute changes. Your urine is slightly concentrated which will benefit as well by drinking more water. After every cup of coffee you could consider drinking a cup of water. In general you need to drink 2 quarts of water daily to maintain a fairly compensated hydration status. Continue all your medications as directed. Follow-up with your clinic as needed or return to the emergency department if considerations worsen. Sepsis Event Note (ED) - Focused Exam Vital Signs: Vital Signs Temp Pulse Resp BP Pulse Ox 04/04/21 11:00 60 12 159/78 H 98 04/04/21 10:42 60 12 134/66 97 04/04/21 10:20 97 F 60 18 143/69 H 96 - Problem List & Annotations (1) Chest pain SNOMED Code(s): 08680770 Code(s): R07.9 - CHEST PAIN, UNSPECIFIED Status: Acute Current Visit: No Qualifiers: Chest pain type: unspecified Qualified Code(s): R07.9 - Chest pain, unspecified (2) Confusion SNOMED Code(s): 804837433 Code(s): R41.0 - DISORIENTATION, UNSPECIFIED Status: Acute Priority: High Current Visit: Yes (3) Paced cardiac rhythm SNOMED Code(s): 98127806 Code(s): THO4011 - Status: Acute Current Visit: No - Problem List Review Problem List Initiated/Reviewed/Updated: Yes - My Orders Last 24 Hours: My Active Orders 04/04/21 10:27 EKG Documentation Completion [RC] ASDIRECTED EKG 12 Lead [EK] Urgent 04/04/21 10:28 EKG 12 Lead [EK] Urgent 04/04/21 10:30 Sodium Chloride 0.9% [Saline Flush] 10 ml FLUSH Q8HR PRN 04/04/21 10:31 Peripheral IV Care [RC] . DIRECTED Peripheral IV Insertion Adult [OM.PC] Routine 04/04/21 10:35 CULTURE URINE [RM] Urgent - Assessment/Plan Last 24 Hours: My Active Orders 04/04/21 10:27 EKG Documentation Completion [RC] ASDIRECTED EKG 12 Lead [EK] Urgent 04/04/21 10:28 EKG 12 Lead [EK] Urgent 04/04/21 10:30 Sodium Chloride 0.9% [Saline Flush] 10 ml FLUSH Q8HR PRN 04/04/21 10:31 Peripheral IV Care [RC] . DIRECTED Peripheral IV Insertion Adult [OM.PC] Routine 04/04/21 10:35 CULTURE URINE [RM] Urgent Plan: Your lab work all returns showing only the evidence of mild dehydration. This is not severe enough requiring hospitalization and that you may correct this by increasing your fluid intake. There is no evidence of infection. Your chest x-ray is fine The CT of your brain was also showing no evidence of any acute changes. Your urine is slightly concentrated which will benefit as well by drinking more water. After every cup of coffee you could consider drinking a cup of water. In general you need to drink 2 quarts of water daily to maintain a fairly compensated hydration status. Continue all your medications as directed. Follow-up with your clinic as needed or return to the emergency department if considerations worsen.
[2021-04-04 10:30] VITALS: PULSE 60
[2021-04-04] MEDS ORDERED: Sodium Chloride 0.9% 10 ML Syringe FLUSH PRN (10:30)
[2021-04-04 11:06] VITALS: BP 159/78
[2021-04-04 11:09] LABS: ANION GAP 13.2 mmol/L (5-15); CHLORIDE,CL 109 mmol/L (98-107); SODIUM,NA 146 mmol/L (136-145)
--- NOTE | 2021-04-04 11:13 | CR ---
[id number] RAD/RAD Chest PA And Lateral EXAM: RAD Chest PA And Lateral INDICATION: CONFUSION,VAGUE CHEST PAIN. COMPARISON: November 29, 2020. DISCUSSION: Left chest wall cardiac conduction device. Cardiomediastinal silhouette is stable in size and contour. No infiltrate, effusion, pneumothorax, or edema. Pulmonary hyperinflation. IMPRESSION: No acute cardiopulmonary abnormality. Edward Ferreira DO 04/04/21 1111 Thank you for allowing us to participate in the care of your patient.
--- NOTE | 2021-04-04 11:14 | CT ---
[id number] CT/CT Head WO IV EXAM: CT Head WO IV CLINICAL DATA: CHANGE IN MENTAL STATUS COMPARISON: CORRELATION IS MADE WITH DECEMBER 05, 2020 FINDINGS: There is no mass or mass effect. There is no hemorrhage or hydrocephalus. There are no extra-axial fluid collections. There are no sites of abnormal attenuation. IMPRESSION: NO PLAIN CT EVIDENCE OF ACUTE INTRACRANIAL PROCESS. Blaine Servin MD 04/04/21 [id number] Thank you for allowing us to participate in the care of your patient.
== END 2021-04-04 11:50 | disposition home or self-care (01) ==
LOC: KA.ED 10:14
DX: F41.0 Panic disorder [episodic paroxysmal anxiety] (principal); K21.9 Gastro-esophageal reflux disease without esophagitis; Z88.2 Allergy status to sulfonamides; Z88.5 Allergy status to narcotic agent; Z88.8 Allergy status to other drugs, medicaments and biological substances; Z79.02 Long term (current) use of antithrombotics/antiplatelets; Z79.899 Other long term (current) drug therapy
CPT/HCPCS: 70450; 71046; 80053; 81001; 83605; 84484; 85025; 87086; 87088; 87186; 93005; 99284; 99285-25

== ENCOUNTER 2021-06-19 11:35 | Observation (INO) | payer MEDICARE, BC, MEDICAID ==
[2021-06-19] MEDS ORDERED: Sodium Chloride 0.9% 10 ML Syringe FLUSH PRN ×2 (11:44→12:34)
--- NOTE | 2021-06-19 11:46 | EDM.PDOC ---
ED HPI GENERAL MEDICAL PROBLEM - General Chief Complaint: Syncope Stated Complaint: SYNCOPE Time Seen by Provider: 06/19/21 11:35 Source of Information: Reports: Patient, EMS, Family History Limitations: Reports: Altered Mental Status - History of Present Illness INITIAL COMMENTS - FREE TEXT/NARRATIVE: 86 YO WF PRESENTS TO ER BY EMS COMPLAINING OF EPISODE OF CHEST PAIN WHICH OC CURRED THIS AM. PT REPORTS ASSOCIATED SHORTNESS OF BREATH AND DIZZINESS. PT BECAME CONCERNED AND CALLED THE ONLY NUMBER SHE COULD REMEMBER WHICH WAS THE [facility] WHO CALLED EMS. UPON TRANSPORT BE EMS PT HAD A BRIEF SYNCOPAL EPISODE. PT HAS BEEN HAVING INCREASED FORGETFULNESS PER BAY RECORDS AND SON. PT CURRENTLY DENIES SHORTNESS OF BREATH AND STATES CHEST PAIN IPROVED AFTER ASA/NITRO BY EMS. PT DENIES FEVER/CHILLS, NO NAUSEA/VOMITING, NO RECENT ILLNESSES. Onset: Today Duration: Improving Location: Reports: Chest, Radiates to (ACROSS HER CHEST. ) Quality: Reports: Ache Severity: Moderate Associated Symptoms: Reports: Confusion, Chest Pain, Shortness of Breath, Syncope. 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 Middle Chest Pain Score (Numeric/FACES): 5 - Related Data Allergies Allergy/AdvReac Type Severity Reaction Status Date / Time donepezil HCl [From Aricept] Allergy Nausea and Verified 04/04/21 10:31 Vomiting midazolam HCl [From Versed] Allergy Seizure Verified 04/04/21 10:31 NSAIDS (Non-Steroidal Allergy Other Verified 04/04/21 10:31 Anti-Inflamma Sulfa (Sulfonamide Allergy Itching Verified 04/04/21 10:31 Antibiotics) tramadol Allergy Itching Verified 04/04/21 10:31 intrascalene injection Allergy Intermediate hard time Uncoded 04/04/21 10:31 waking up Home Meds: Home Meds Simvastatin [Zocor] 40 mg PO BEDTIME 06/10/17 [History] Calcium Carbonate/Vitamin D3 [Calcium 500-Vit D3 200 Tablet] 1 tab PO BEDTIME 08/10/19 [History] Cholecalciferol (Vitamin D3) [Vitamin D3] 1,000 units PO DAILY 08/10/19 [History] Lidocaine 5% [Lidoderm 5%] 1 patch TOP DAILY #30 patch 08/12/19 [Rx] Ferrous Sulfate 325 mg PO DAILY 11/26/19 [History] Acetaminophen [Tylenol Arthritis] 650 mg PO Q6H PRN 11/29/20 [History] Oxybutynin Chloride [Ditropan Xl] 10 mg PO DAILY 11/29/20 [History] Omeprazole 40 mg PO ACBREAKFAST #30 cap.cr 12/01/20 [Rx] Clopidogrel [Plavix] 75 mg PO DAILY 12/20/20 [History] Iron Polysaccharides Complex [Ferrex 150] 150 mg PO Q48H 01/02/21 [History] Fluconazole 150 mg PO DAILY 04/04/21 [History] Fluconazole [Diflucan] 100 mg PO ASDIRECTED 04/04/21 [History] Menthol [Biofreeze] 89 ml TP BID PRN 04/04/21 [History] Past Medical History HEENT History: Reports: Cataract, Hard of Hearing, Impaired Vision Cardiovascular History: Reports: Heart Failure, High Cholesterol, Pacemaker, Syncope Respiratory History: Reports: None Gastrointestinal History: Reports: GERD, Hemorrhoids, PUD, Other (See Below) (Gi tumor bowel) Genitourinary History: Reports: Urinary Incontinence Other Genitourinary History: dribbles 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: Musculoskeletal History: Reports: Arthritis, Back Pain, Chronic, Muscular Dystrophy, Osteoarthritis, Osteoporosis, RA Other Musculoskeletal History: Osteopenia, lumbar spinalosis Neurological History: Reports: Migraines, Seizure, Vertigo Psychiatric History: Reports: ADD, Anxiety, Depression, Eating Disorders, Mood Swings Endocrine/Metabolic History: Reports: Osteopenia, Osteoporosis Hematologic History: Reports: Anesthesia Reaction, Blood Transfusion(s) Immunologic History: Reports: None Oncologic (Cancer) History: Reports: Bladder, Ovarian, Thyroid Dermatologic History: Reports: None - Infectious Disease History Infectious Disease History: Reports: Chicken Pox, Measles, Mumps, Pertussis (Whooping Cough), Rheumatic Fever - Past Surgical History GI Surgical History: Reports: Colonoscopy, Hernia, Abdominal, Other (See Below) (large bowel ascending hemicoloctomy secondary mass) Social & Family History - Family History Family Medical History: No Pertinent Family History Cardiac: Reports: Hypertension, [place] Respiratory: Reports: None GI: Reports: None : Reports: None OBGYN: Reports: None Musculoskeletal: Reports: Arthritis Neurological: Reports: None - Caffeine Use Caffeine Use: Reports: Coffee Caffeine Use Comment: usually drinks decaf but might have 1-2 cups caffeinated coffee with friends ED ROS GENERAL - Review of Systems Review Of Systems: See Below Constitutional: Reports: No Symptoms HEENT: Reports: No Symptoms Respiratory: Reports: Shortness of Breath. Denies: Pleuritic Chest Pain Cardiovascular: Reports: Chest Pain, Lightheadedness, Syncope Endocrine: Reports: No Symptoms GI/Abdominal: Reports: No Symptoms : Reports: No Symptoms Musculoskeletal: Reports: No Symptoms Skin: Reports: No Symptoms Neurological: Reports: Confusion, Syncope. Denies: Headache, Numbness, Paresthesia, Trouble Speaking, Difficulty Walking, Weakness, Change in Speech, Gait Disturbance Psychiatric: Reports: No Symptoms Hematologic/Lymphatic: Reports: No Symptoms Immunologic: Reports: No Symptoms - Physical Exam Exam: See Below Exam Limited By: No Limitations General Appearance: Alert, WD/WN, No Apparent Distress Eye Exam: Bilateral Eye: EOMI, PERRL Throat/Mouth: Normal Inspection, Normal Lips, Normal Teeth, Normal Gums, Normal Oropharynx, Normal Voice, No Airway Compromise Head Exam: Atraumatic, Normocephalic Neck: Normal Inspection, Supple, Non-Tender, Full Range of Motion Respiratory/Chest: No Respiratory Distress, Lungs Clear, Normal Breath Sounds, No Accessory Muscle Use, Chest Non-Tender Cardiovascular: Normal Peripheral Pulses, Regular Rate, Rhythm, No Edema, No Gallop, No JVD, No Murmur, No Rub GI/Abdominal: Normal Bowel Sounds, Soft, Non-Tender, No Organomegaly, No Distention, No Mass Neuro Exam (Abbreviated): Alert, Oriented, CN II-XII Intact, Normal Cognition, Normal Gait, No Motor/Sensory Deficits Back Exam: Normal Inspection, Full Range of Motion, NT Extremities: Normal Inspection, Normal Range of Motion, Non-Tender, No Pedal Edema, Normal Capillary Refill Psychiatric: Normal Affect, Normal Mood Skin Exam: Warm, Dry, Intact, Normal Color, No Rash #1 Interpretation EKG Date: 06/19/21 Time: 11:38 Rhythm: NSR Rate (Beats/Min): 77 P-Wave: Present QRS: Wide ST-T: Normal QT: Normal EKG Interpretation Comments: 100%AV PACED Course - Vital Signs Last Recorded V/S: Last Vital Signs Temp 97.5 F 06/19/21 11:45 Pulse 69 06/19/21 11:45 Resp 23 H 06/19/21 11:45 BP 162/76 H 06/19/21 11:45 Pulse Ox 100 06/19/21 11:45 - Orders/Labs/Meds Orders: Active Orders 24 hr Category Date Time Status Cardiac Monitoring [RC] . DIRECTED Care 06/19/21 11:44 Active Peripheral IV Care [RC] . DIRECTED Care 06/19/21 11:45 Active Sodium Chloride 0.9% [Saline Flush] Med 06/19/21 11:44 Active 10 ml FLUSH Q8HR PRN Peripheral IV Insertion Adult [OM.PC] Routine Oth 06/19/21 11:44 Ordered EKG 12 Lead [EK] Stat Ther 06/19/21 11:44 Ordered Medication Orders Sodium Chloride (Sodium Chloride 0.9% 10 Ml Syringe) 10 ml FLUSH Q8HR PRN PRN Reason: keep vein open Labs: Laboratory Tests 06/19/21 06/19/21 Range/Units 11:30 11:30 WBC 4.83 L (5.00-10.00) 10^3/uL RBC 4.72 (3.80-5.50) 10^6/uL Hgb 12.9 D (12.0-16.0) g/dL Hct 40.0 (37.0-47.0) % MCV 84.7 D (82.0-92.0) fL MCH 27.3 (27.0-31.0) pg MCHC 32.3 (32.0-36.0) g/dL RDW 15.0 H (11.5-14.5) % Plt Count 217 (150-400) 10^3/uL MPV 10.1 (7.4-10.4) fL Immature Gran % (Auto) 0.2 (0.0-5.0) % Neut % (Auto) 63.7 (50.0-70.0) % Lymph % (Auto) 22.6 (20.0-40.0) % [place] % (Auto) 10.8 H (2.0-8.0) % Eos % (Auto) 2.3 (1.0-3.0) % Baso % (Auto) 0.4 (0.0-1.0) % Neut # (Auto) 3.08 (2.50-7.00) 10^3/uL Lymph # (Auto) 1.09 (1.00-4.00) 10^3/uL [place] # (Auto) 0.52 (0.10-0.80) 10^3/uL Eos # (Auto) 0.11 (0.10-0.30) 10^3/uL Baso # (Auto) 0.02 (0.00-0.10) 10^3/uL Immature Gran # (Auto) 0.01 (0.00-0.50) 10^3/uL Sodium 141 (136-145) mmol/L Potassium 4.2 (3.5-5.1) mmol/L Chloride 103 (98-107) mmol/L Carbon Dioxide 26.4 (21.0-32.0) mmol/L Anion Gap 15.8 H (5-15) mmol/L BUN 25 H (7-18) mg/dL Creatinine 0.96 (0.51-1.17) mg/dL Est Cr Clr Drug Dosing 35.56 mL/min Estimated GFR (MDRD) 55 mL/min Glucose 110 (70-140) mg/dL Calcium 9.0 (8.7-10.3) mg/dL Magnesium 2.0 (1.8-2.4) mg/dL Total Bilirubin 0.4 (0.2-1.0) mg/dL AST 17 (15-37) U/L ALT 28 (14-63) U/L Alkaline Phosphatase 71 (46-116) U/L Troponin I High Sens 13.500 (0-51.000) pg/mL Total Protein 6.9 (6.4-8.2) g/dL Albumin 3.61 (3.40-5.00) g/dL Meds: Medications Generic Name Dose Route Start Last Admin Trade Name Freq PRN Reason Stop Dose Admin Sodium Chloride 10 ml 06/19/21 11:44 Sodium Chloride 0.9% 10 Ml Syringe FLUSH Q8HR PRN keep vein open - Radiology Interpretation Free Text/Narrative:: CXR- NAD CT HEAD- NAD Departure - Departure Time of Disposition: 12:33 Disposition: Refer to Observation Condition: Fair Clinical Impression: Syncope Chest pain Qualifiers: Chest pain type: unspecified Qualified Code(s): R07.9 - Chest pain, unspecified - Discharge Information Referrals: Nanda Tran MD [Primary Care Provider] - Forms: ED Department Discharge Sepsis Event Note (ED) - Focused Exam Vital Signs: Vital Signs Temp Pulse Resp BP Pulse Ox 06/19/21 11:45 97.5 F 69 23 H 162/76 H 100 - My Orders Last 24 Hours: My Active Orders 06/19/21 11:44 Cardiac Monitoring [RC] . DIRECTED Sodium Chloride 0.9% [Saline Flush] 10 ml FLUSH Q8HR PRN Peripheral IV Insertion Adult [OM.PC] Routine EKG 12 Lead [EK] Stat 06/19/21 11:45 Peripheral IV Care [RC] . DIRECTED - Assessment/Plan Last 24 Hours: My Active Orders 06/19/21 11:44 Cardiac Monitoring [RC] . DIRECTED Sodium Chloride 0.9% [Saline Flush] 10 ml FLUSH Q8HR PRN Peripheral IV Insertion Adult [OM.PC] Routine EKG 12 Lead [EK] Stat 06/19/21 11:45 Peripheral IV Care [RC] . DIRECTED Assessment:: 1. CHEST PAIN 2. SYNCOPE Plan: 1. ADMIT TO MEDICINE- OBS- [facility] ACCEPTING @1233 2. TROP I Q6 X 3 3. ASA/NITRO 4. MONITOR 5. SUPPORTIVE CARE
--- NOTE | 2021-06-19 11:54 | CR ---
[id number] RAD/RAD Chest PA or AP 1V EXAM: RAD Chest PA or AP 1V INDICATION: CHEST PAIN. COMPARISON: April 04, 2021. DISCUSSION/IMPRESSION: Cardiomediastinal silhouette is unchanged in size and contour compared to the prior examination. Stable appearance of left chest wall cardiac conduction device. Lungs are clear. No pleural effusion or pneumothorax. Mike Hillman MD 06/19/21 [id number] Thank you for allowing us to participate in the care of your patient.
[2021-06-19 12:06] LABS: ANION GAP 15.8 mmol/L (5-15)
--- NOTE | 2021-06-19 12:29 | CT ---
[id number] CT/CT Head WO IV EXAM: CT Head WO IV CLINICAL DATA: SYNCOPE. COMPARISON STUDY: None FINDINGS: No intracranial hemorrhage, extra-axial fluid collection, mass, or acute ischemia. Generalized parenchymal atrophy with scattered areas of nonspecific white matter disease, commonly seen as sequela of chronic microvascular ischemia. Soft tissues are unremarkable. Paranasal sinuses and mastoid air cells are clear. IMPRESSION: No acute intracranial findings. Edward Ferreira DO 06/19/21 [id number] Thank you for allowing us to participate in the care of your patient.
[2021-06-19] MEDS ORDERED: Nitroglycerin 0.4 MG Tab.SL SL PRN ×2 (15:02→15:15)
[2021-06-19] MEDS ORDERED: Acetaminophen 650 MG Tab.ER PO PRN (15:03)
[2021-06-19] MEDS ORDERED: EPINEPHrine 1:10,000 1 MG/10 ML Syringe IVPUSH PRN (15:15)
[2021-06-19] MEDS ORDERED: Atropine 0.1 MG/ML 10 ML Syringe IVPUSH PRN (15:15)
[2021-06-19] MEDS ORDERED: Lidocaine 2% 100 MG/5 ML Syringe IVPUSH PRN (15:15)
--- NOTE | 2021-06-19 17:30 | PCM.HP.2 ---
H&P History of Present Illness - General Date of Service: 06/19/21 Admit Problem/Dx: Admission Diagnosis/Problem Admission Diagnosis/Problem Chest pain Middle Chest Pain Score (Numeric/FACES): 10 - Related Data Allergies/Adverse Reactions: Allergies Allergy/AdvReac Type Severity Reaction Status Date / Time donepezil HCl [From Aricept] Allergy Nausea and Verified 06/19/21 13:13 Vomiting midazolam HCl [From Versed] Allergy Seizure Verified 06/19/21 13:13 NSAIDS (Non-Steroidal Allergy Other Verified 06/19/21 13:13 Anti-Inflamma Sulfa (Sulfonamide Allergy Itching Verified 06/19/21 13:13 Antibiotics) tramadol Allergy Itching Verified 06/19/21 13:13 intrascalene injection Allergy Intermediate hard time Uncoded 06/19/21 13:13 waking up Home Medications: Home Meds Simvastatin [Zocor] 40 mg PO BEDTIME 06/10/17 [History] Calcium Carbonate/Vitamin D3 [Calcium 500-Vit D3 200 Tablet] 2 tab PO DAILY 08/10/19 [History] Cholecalciferol (Vitamin D3) [Vitamin D3] 1,000 units PO DAILY 08/10/19 [History] Lidocaine 5% [Lidoderm 5%] 1 patch TOP DAILY #30 patch 08/12/19 [Rx] Ferrous Sulfate 325 mg PO DAILY 11/26/19 [History] Acetaminophen [Tylenol Arthritis] 650 mg PO Q6H PRN 11/29/20 [History] Oxybutynin Chloride [Ditropan Xl] 10 mg PO DAILY 11/29/20 [History] Omeprazole 40 mg PO ACBREAKFAST #30 cap.cr 12/01/20 [Rx] Clopidogrel [Plavix] 75 mg PO DAILY 12/20/20 [History] Iron Polysaccharide Complex [Ferric X-150] 150 mg PO Q48H 06/19/21 [History] Vit A/C/E AC/Znox/Cupric Oxide [Eye Vitamin-Minerals Tablet] 1 tab PO DAILY 06/19/21 [History] Past Medical History HEENT History: Reports: Cataract, Hard of Hearing, Impaired Vision Cardiovascular History: Reports: Heart Failure, High Cholesterol, Pacemaker, Syncope Respiratory History: Reports: None Gastrointestinal History: Reports: GERD, Hemorrhoids, PUD, Other (See Below) Genitourinary History: Reports: Urinary Incontinence Other Genitourinary History: dribbles 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: Musculoskeletal History: Reports: Arthritis, Back Pain, Chronic, Muscular Dystrophy, Osteoarthritis, Osteoporosis, RA Other Musculoskeletal History: Osteopenia, lumbar spinalosis Neurological History: Reports: Migraines, Seizure, Vertigo Psychiatric History: Reports: ADD, Anxiety, Depression, Eating Disorders, Mood Swings Endocrine/Metabolic History: Reports: Osteopenia, Osteoporosis Hematologic History: Reports: Anesthesia Reaction, Blood Transfusion(s) Immunologic History: Reports: None Oncologic (Cancer) History: Reports: Bladder, Ovarian, Thyroid Dermatologic History: Reports: None - Infectious Disease History Infectious Disease History: Reports: Chicken Pox, Measles, Mumps, Pertussis ( Whooping Cough), Rheumatic Fever - Past Surgical History Head Surgeries/Procedures: Reports: None HEENT Surgical History: Reports: Cataract Surgery, Retinal Cardiovascular Surgical History: Reports: Pacer Respiratory Surgical History: Reports: None GI Surgical History: Reports: Colonoscopy, Hernia, Abdominal, Other (See Below) Other GI Surgeries/Procedures: hemorrhoids Female Surgical History: Reports: None Endocrine Surgical History: Reports: Thyroid Biopsy Neurological Surgical History: Reports: Scoliosis, Other (See Below) Other Neurological Surgeries/Procedures: Coritisone injection to lumbar. Musculoskeletal Surgical History: Reports: Hip Replacement, Shoulder Surgery Oncologic Surgical History: Reports: None Dermatological Surgical History: Reports: None Social & Family History - Family History Family Medical History: No Pertinent Family History Cardiac: Reports: Hypertension, [place] Respiratory: Reports: None GI: Reports: None : Reports: None OBGYN: Reports: None Musculoskeletal: Reports: Arthritis Neurological: Reports: None - Tobacco Use Tobacco Use Status *Q: Never Tobacco User - Caffeine Use Caffeine Use: Reports: None, Soda Caffeine Use Comment: usually drinks decaf but might have 1-2 cups caffeinated coffee with friends - Recreational Drug Use Recreational Drug Use: No Exam - Vital Signs Vital Signs: Last Vital Signs Temp 97.5 F 06/19/21 15:15 Pulse 62 06/19/21 15:15 Resp 18 06/19/21 15:15 BP 138/59 L 06/19/21 15:30 Pulse Ox 99 06/19/21 15:15 Weight: 140 lb 3.2 oz - Patient Data Lab Results Last 24 hrs: Laboratory Results - last 24 hr 09/21/21 09/21/21 09/21/21 Range/Units 11:30 11:30 12:35 WBC 4.83 L (5.00-10.00) 10^3/uL RBC 4.72 (3.80-5.50) 10^6/uL Hgb 12.9 D (12.0-16.0) g/dL Hct 40.0 (37.0-47.0) % MCV 84.7 D (82.0-92.0) fL MCH 27.3 (27.0-31.0) pg MCHC 32.3 (32.0-36.0) g/dL RDW 15.0 H (11.5-14.5) % Plt Count 217 (150-400) 10^3/uL MPV 10.1 (7.4-10.4) fL Immature Gran % (Auto) 0.2 (0.0-5.0) % Neut % (Auto) 63.7 (50.0-70.0) % Lymph % (Auto) 22.6 (20.0-40.0) % [place] % (Auto) 10.8 H (2.0-8.0) % Eos % (Auto) 2.3 (1.0-3.0) % Baso % (Auto) 0.4 (0.0-1.0) % Neut # (Auto) 3.08 (2.50-7.00) 10^3/uL Lymph # (Auto) 1.09 (1.00-4.00) 10^3/uL [place] # (Auto) 0.52 (0.10-0.80) 10^3/uL Eos # (Auto) 0.11 (0.10-0.30) 10^3/uL Baso # (Auto) 0.02 (0.00-0.10) 10^3/uL Immature Gran # (Auto) 0.01 (0.00-0.50) 10^3/uL Sodium 141 (136-145) mmol/L Potassium 4.2 (3.5-5.1) mmol/L Chloride 103 (98-107) mmol/L Carbon Dioxide 26.4 (21.0-32.0) mmol/L Anion Gap 15.8 H (5-15) mmol/L BUN 25 H (7-18) mg/dL Creatinine 0.96 (0.51-1.17) mg/dL Est Cr Clr Drug Dosing 35.56 mL/min Estimated GFR (MDRD) 55 mL/min Glucose 110 (70-140) mg/dL Calcium 9.0 (8.7-10.3) mg/dL Magnesium 2.0 (1.8-2.4) mg/dL Total Bilirubin 0.4 (0.2-1.0) mg/dL AST 17 (15-37) U/L ALT 28 (14-63) U/L Alkaline Phosphatase 71 (46-116) U/L Troponin I High Sens 13.500 (0-51.000) pg/mL Total Protein 6.9 (6.4-8.2) g/dL Albumin 3.61 (3.40-5.00) g/dL SARS CoV-2 RNA Rapid YUDY Negative (NEGATIVE) 06/19/21 Range/Units 16:30 WBC (5.00-10.00) 10^3/uL RBC (3.80-5.50) 10^6/uL Hgb (12.0-16.0) g/dL Hct (37.0-47.0) % MCV (82.0-92.0) fL MCH (27.0-31.0) pg MCHC (32.0-36.0) g/dL RDW (11.5-14.5) % Plt Count (150-400) 10^3/uL MPV (7.4-10.4) fL Immature Gran % (Auto) (0.0-5.0) % Neut % (Auto) (50.0-70.0) % Lymph % (Auto) (20.0-40.0) % [place] % (Auto) (2.0-8.0) % Eos % (Auto) (1.0-3.0) % Baso % (Auto) (0.0-1.0) % Neut # (Auto) (2.50-7.00) 10^3/uL Lymph # (Auto) (1.00-4.00) 10^3/uL [place] # (Auto) (0.10-0.80) 10^3/uL Eos # (Auto) (0.10-0.30) 10^3/uL Baso # (Auto) (0.00-0.10) 10^3/uL Immature Gran # (Auto) (0.00-0.50) 10^3/uL Sodium (136-145) mmol/L Potassium (3.5-5.1) mmol/L Chloride (98-107) mmol/L Carbon Dioxide (21.0-32.0) mmol/L Anion Gap (5-15) mmol/L BUN (7-18) mg/dL Creatinine (0.51-1.17) mg/dL Est Cr Clr Drug Dosing mL/min Estimated GFR (MDRD) mL/min Glucose (70-140) mg/dL Calcium (8.7-10.3) mg/dL Magnesium (1.8-2.4) mg/dL Total Bilirubin (0.2-1.0) mg/dL AST (15-37) U/L ALT (14-63) U/L Alkaline Phosphatase (46-116) U/L Troponin I High Sens 16.000 (0-51.000) pg/mL Total Protein (6.4-8.2) g/dL Albumin (3.40-5.00) g/dL SARS CoV-2 RNA Rapid YUDY (NEGATIVE) Result Diagrams: 06/19/21 11:30 06/19/21 11:30 Sepsis Event Note - Evaluation Sepsis Screening Result: No Definite Risk - Focused Exam Vital Signs: Vital Signs Temp Pulse Pulse Resp BP BP Pulse Ox 06/19/21 15:30 138/59 L 06/19/21 15:15 97.5 F 62 18 138/59 L 99 06/19/21 12:35 97.0 F 61 16 140/62 100 06/19/21 11:45 97.5 F 69 23 H 162/76 H 100 Pulse Ox 06/19/21 15:30 06/19/21 15:15 06/19/21 12:35 99 06/19/21 11:45 Orders Last 24hrs: Active Orders 24 hr Category Date Time Status Patient Status [ADT] Routine ADT 06/19/21 12:35 Active Cardiac Monitoring [RC] 07,11,15,19,23,03 Care 06/19/21 12:35 Active Oxygen Therapy [RC] PRN Care 06/19/21 12:35 Active Peripheral IV Care [RC] . DIRECTED Care 06/19/21 12:36 Active Up With Assistance [RC] ASDIRECTED Care 06/19/21 12:34 Active VTE/DVT Education [RC] PER UNIT ROUTINE Care 06/19/21 12:35 Active Vital Signs [RC] 03,07,11,15,19,23 Care 06/19/21 12:35 Active Heart Healthy Diet [DIET] Diet 06/19/21 Lunch Active TROPONIN I HIGH SENSITIVITY [CHEM] Routine Lab 06/19/21 22:30 Ordered Acetaminophen [Tylenol Arthritis Pain] Med 06/19/21 15:03 Active 650 mg PO Q6H PRN Atropine [Atropine 0.1 MG/ML] Med 06/19/21 15:15 Active 0 mg IVPUSH ASDIRECTED PRN Clopidogrel [Plavix] Med 06/20/21 09:00 Active 75 mg PO DAILY EPINEPHrine [EPINEPHrine 1:10,000] Med 06/19/21 15:15 Active 1 mg IVPUSH ASDIRECTED PRN FA/Lycopene/Lut/MV,Ca,Iron,Min [Centrum] Med 06/20/21 09:00 Active 1 tab PO DAILY Ferrous Sulfate Med 06/20/21 09:00 Active 325 mg PO DAILY Iron Polysaccharides Complex [Ferrex 150] Med 06/21/21 09:00 Active 150 mg PO Q48H Lidocaine 2% [Xylocaine 2%] Med 06/19/21 15:15 Active 0 mg IVPUSH ASDIRECTED PRN Lidocaine 5% [Lidoderm 5%] Med 06/20/21 09:00 Active 700 mg TOP DAILY Nitroglycerin [Nitrostat] Med 06/19/21 15:15 Active 0.4 mg SL ASDIRECTED PRN Oxybutynin [Oxybutynin ER] Med 06/20/21 09:00 Active 10 mg PO DAILY Pantoprazole [ProTONIX] Med 06/20/21 07:30 Active 40 mg PO ACBREAKFAST Remove Patch Med 06/19/21 21:00 Active 1 ea TRDERM DAILY@2100 Simvastatin [Zocor] Med 06/19/21 21:00 Active 40 mg PO BEDTIME Sodium Chloride 0.9% [Saline Flush] Med 06/19/21 11:44 Active 10 ml FLUSH Q8HR PRN Peripheral IV Insertion Adult [OM.PC] Routine Oth 06/19/21 11:44 Ordered Peripheral IV Insertion Adult [OM.PC] Routine Oth 06/19/21 12:34 Ordered Resuscitation Status Routine Resus Stat 06/19/21 12:34 Ordered EKG 12 Lead [EK] Stat Ther 06/19/21 11:44 Stop Req Medication Orders Acetaminophen (Acetaminophen 650 Mg Tab.Er) 650 mg PO Q6H PRN PRN Reason: Pain Atropine Sulfate (Atropine 0.1 Mg/Ml 10 Ml Syringe) 0 mg IVPUSH ASDIRECTED PRN PRN Reason: Heart Clopidogrel Bisulfate (Clopidogrel 75 Mg Tab) 75 mg PO DAILY [facility] Epinephrine HCl (Epinephrine 1:10,000 1 Mg/10 Ml Syringe) 1 mg IVPUSH ASDIRECTED PRN PRN Reason: Heart Ferrous Sulfate (Ferrous Sulfate 325 Mg Tab) 325 mg PO DAILY [facility] Lidocaine (Lidocaine 5% 700 Mg Patch) 700 mg TOP DAILY [facility] Lidocaine HCl (Lidocaine 2% 100 Mg/5 Ml Syringe) 0 mg IVPUSH ASDIRECTED PRN PRN Reason: Heart Miscellaneous Information (Remove Patch) 1 ea TRDERM DAILY@2100 [facility] Multivitamins/Minerals (Multivitamins With Minerals/Iron/Folic Acid/Lycopene Tab) 1 tab PO DAILY [facility] Nitroglycerin (Nitroglycerin 0.4 Mg Tab.Sl) 0.4 mg SL ASDIRECTED PRN PRN Reason: Heart Last Admin: 06/19/21 15:30 Dose: 0.4 mg Documented by: NIXON Oxybutynin Chloride (Oxybutynin 5 Mg Tab.Er) 10 mg PO DAILY [facility] Pantoprazole Sodium (Pantoprazole 40 Mg Tab.Cr) 40 mg PO ACBREAKFAST [facility] Polysaccharide Iron Complex (Iron Polysaccharides Complex 150 Mg Cap) 150 mg PO Q48H [facility] Simvastatin (Simvastatin 20 Mg Tab) 40 mg PO BEDTIME [facility] Sodium Chloride (Sodium Chloride 0.9% 10 Ml Syringe) 10 ml FLUSH Q8HR PRN PRN Reason: keep vein open Assessment/Plan Comment:: HPI summary: ED course: Hospital course: Hospitalization problems and plan: # Chronic, stable conditions: # Hospitalization details: # FEN: # PPX: # Code status: # Emergency contact: # Disposition:
[2021-06-19] MEDS: Simvastatin 20 MG Tab PO SCH ×2 (19:42→22:33)
[2021-06-20] MEDS: Pantoprazole 40 MG Tab.CR PO SCH (06:31)
[2021-06-20] MEDS ORDERED: Pantoprazole 40 MG Tab.CR PO SCH (07:30)
[2021-06-20] MEDS ORDERED: Non-Formulary Medication 1 Each (Calcium Carbonate/Vitamin D3 [Calcium 500-Vit D3 200 Tabl PO SCH (09:00)
[2021-06-20] MEDS ORDERED: Ferrous Sulfate 325 MG Tab PO SCH (09:00)
[2021-06-20] MEDS: Calcium Citrate/Vitamin D3 315 MG-250 Unit Tab PO SCH (09:47)
[2021-06-20] MEDS: Multivitamins with Minerals/Iron/Folic Acid/Lycopene Tab PO SCH (09:48)
[2021-06-20] MEDS: Clopidogrel 75 MG Tab PO SCH (09:50)
[2021-06-20] MEDS: Oxybutynin 5 MG Tab.ER PO SCH (09:50)
[2021-06-20] MEDS: Cholecalciferol (Vitamin D3) 25 MCG Tab PO SCH (09:50)
[2021-06-20] MEDS: Lidocaine 5% 700 MG Patch TOP SCH (10:00)
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
[2021-06-20] MEDS: Midodrine 5 MG Tab PO SCH ×2 (11:11→18:14)
[2021-06-20] MEDS: Simvastatin 20 MG Tab PO SCH (20:45)
[2021-06-21] MEDS: Pantoprazole 40 MG Tab.CR PO SCH ×2 (06:06→06:30)
[2021-06-21] MEDS: Cholecalciferol (Vitamin D3) 25 MCG Tab PO SCH (08:15)
[2021-06-21] MEDS: Midodrine 5 MG Tab PO SCH (08:15)
[2021-06-21] MEDS: Clopidogrel 75 MG Tab PO SCH (08:15)
[2021-06-21] MEDS: Oxybutynin 5 MG Tab.ER PO SCH (08:15)
[2021-06-21] MEDS: Calcium Citrate/Vitamin D3 315 MG-250 Unit Tab PO SCH (08:16)
[2021-06-21] MEDS: Lidocaine 5% 700 MG Patch TOP SCH (08:16)
[2021-06-21] MEDS: Multivitamins with Minerals/Iron/Folic Acid/Lycopene Tab PO SCH (08:16)
[2021-06-21] MEDS ORDERED: Iron Polysaccharides Complex 150 MG Cap PO SCH (09:00)
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
[2021-06-21 10:45] VITALS: PULSE 61
[2021-06-21] MEDS ORDERED: Midodrine 5 MG Tab PO ONE (14:00)
[2021-06-21 14:35] VITALS: BP 127/61
== END 2021-06-21 15:00 | disposition home or self-care (01) ==
LOC: KA.ED 11:35 → KA.MS 12:34
PROVIDERS: ADMIT Physician Assistant Medical; ATTEND Nurse Practitioner Family
DX: R07.89 Other chest pain (principal); R55 Syncope and collapse; I95.1 Orthostatic hypotension; E78.5 Hyperlipidemia, unspecified; G45.4 Transient global amnesia; H81.09 Meniere's disease, unspecified ear; K27.9 Peptic ulcer, site unspecified, unspecified as acute or chronic, without hemorrhage or perforation; M81.0 Age-related osteoporosis without current pathological fracture; G89.29 Other chronic pain; M54.5 Low back pain; F32.9 Major depressive disorder, single episode, unspecified; N95.2 Postmenopausal atrophic vaginitis; B37.9 Candidiasis, unspecified; N32.81 Overactive bladder; Z20.822 Contact with and (suspected) exposure to COVID-19
CPT/HCPCS: 36415; 70450; 71045; 80053; 83735; 84484; 85025; 93005; 99285-25; A9270-GY; G0378; U0002

== ENCOUNTER 2021-12-06 18:14 | Emergency (ER) | payer MEDICARE, BC, MEDICAID ==
[2021-12-06 19:15] LABS: ANION GAP 13.1 mmol/L (5-15)
[2021-12-06 23:54] VITALS: BP 142/76; PULSE 76
== END 2021-12-06 20:10 | disposition home or self-care (01) ==
LOC: KA.ED 18:14
DX: R41.0 Disorientation, unspecified (principal); C18.9 Malignant neoplasm of colon, unspecified; E78.00 Pure hypercholesterolemia, unspecified; K21.9 Gastro-esophageal reflux disease without esophagitis; M19.90 Unspecified osteoarthritis, unspecified site; Z88.2 Allergy status to sulfonamides; Z88.5 Allergy status to narcotic agent; Z79.899 Other long term (current) drug therapy; Z79.02 Long term (current) use of antithrombotics/antiplatelets; Z88.8 Allergy status to other drugs, medicaments and biological substances
CPT/HCPCS: 36415; 71045; 80053; 81001; 83880; 84484; 85025; 87086; 93005; 93010; 99284; 99285-25

== ENCOUNTER 2022-02-27 08:11 | Emergency (ER) | payer MEDICARE, BC, MEDICAID ==
[2022-02-27] MEDS: Ondansetron 4 MG/2 ML SDV IVPUSH ONE (08:23)
[2022-02-27] MEDS: Sodium Chloride 0.9% 10 ML Syringe FLUSH PRN (08:23)
[2022-02-27] MEDS: Ondansetron 4 MG/2 ML SDV ONE (08:24)
[2022-02-27 08:42] LABS: ANION GAP 16.4 mmol/L (5-15)
[2022-02-27 10:23] VITALS: BP 155/76; PULSE 73
== END 2022-02-27 10:05 | disposition home or self-care (01) ==
LOC: KA.ED 08:11
DX: K52.9 Noninfective gastroenteritis and colitis, unspecified (principal); E78.00 Pure hypercholesterolemia, unspecified; K21.9 Gastro-esophageal reflux disease without esophagitis; M19.90 Unspecified osteoarthritis, unspecified site; Z95.0 Presence of cardiac pacemaker; Z88.5 Allergy status to narcotic agent; Z88.2 Allergy status to sulfonamides; Z88.8 Allergy status to other drugs, medicaments and biological substances; Z79.02 Long term (current) use of antithrombotics/antiplatelets; Z79.899 Other long term (current) drug therapy
CPT/HCPCS: 36415; 71045; 80053; 81001; 83605; 83880; 84484; 85025; 87086; 93010; 96374; 99284; 99284-25; J2405; J3490

== ENCOUNTER 2023-04-13 20:59 | Emergency (ER) | payer MEDICARE, BC, MEDICAID ==
[2023-04-13] MEDS: Sodium Chloride 0.9% 10 ML Syringe FLUSH PRN (21:42)
[2023-04-13 21:57] LABS: BASOPHILS ABSOLUTE AUTO 0.01 10^3/uL (0.00-0.10); BASOPHILS PERCENT AUTO 0.2 % (0.0-1.0); EOSINOPHILS ABSOLUTE AUTO 0.14 10^3/uL (0.10-0.30); EOSINOPHILS PERCENT AUTO 2.4 % (1.0-3.0); HEMATOCRIT 35.8 % (37.0-47.0); IMMATURE GRAN ABSOLUTE AUTO 0.01 10^3/uL (0.00-0.50); IMMATURE GRAN PERCENT AUTO 0.2 % (0.0-5.0); LYMPHOCYTES ABSOLUTE AUTO 1.02 10^3/uL (1.00-4.00); LYMPHOCYTES PERCENT AUTO 17.5 % (20.0-40.0); MEAN CORPUSCULAR HEMOGLOBIN 26.7 pg (27.0-31.0); MEAN CORPUSCULAR HGB CONC 30.7 g/dL (32.0-36.0); MEAN CORPUSCULAR VOLUME 86.9 fL (82.0-92.0); MEAN PLATELET VOLUME 9.6 fL (7.4-10.4); MONOCYTES PERCENT AUTO 10.3 % (2.0-8.0); NEUTROPHILS ABSOLUTE AUTO 4.04 10^3/uL (2.50-7.00); NEUTROPHILS PERCENT AUTO 69.4 % (50.0-70.0); PLATELET COUNT,PLT 282 10^3/uL (150-400); RED BLOOD CELL COUNT 4.12 10^6/uL (3.80-5.50); RED CELL DISTRIBUTION WIDTH 14.6 % (11.5-14.5); WHITE BLOOD CELL COUNT,WBC 5.82 10^3/uL (5.00-10.00)
[2023-04-13 22:15] LABS: ALANINE AMINOTRANSFERASE,ALT 27 U/L (14-63); ALBUMIN 2.99 g/dL (3.40-5.00); ALKALINE PHOSPHATASE 111 U/L (46-116); ANION GAP 11.6 mmol/L (5-15); ASPARTATE AMNIOTRANSFERASE,AST 11 U/L (15-37); BILIRUBIN TOTAL 0.2 mg/dL (0.2-1.0); BLOOD UREA NITROGEN,BUN 26 mg/dL (7-18); C-REACTIVE PROTEIN < 0.4 mg/dL (0.0-0.9); CALCIUM 8.7 mg/dL (8.7-10.3); CARBON DIOXIDE,CO2 28.4 mmol/L (21.0-32.0); CHLORIDE,CL 108 mmol/L (98-107); CREATININE 1.08 mg/dL (0.51-1.17); ESTIMATED GFR 49 mL/min (>=60); GLUCOSE RANDOM 133 mg/dL (70-140); PROTEIN TOTAL,TP 6.5 g/dL (6.4-8.2); SODIUM,NA 144 mmol/L (136-145)
[2023-04-13 22:16] LABS: B-TYPE NATRIURETIC PEPTIDE,BNP 215 pg/mL (0-100)
[2023-04-13] MEDS: Famotidine 20 MG/2 ML SDV IVPUSH ONE (22:28)
[2023-04-14 04:32] VITALS: BP 138/78; PULSE 76
== END 2023-04-13 23:11 | disposition home or self-care (01) ==
LOC: KA.ED 20:59
DX: I49.8 Other specified cardiac arrhythmias (principal); K30 Functional dyspepsia; R63.2 Polyphagia; R10.13 Epigastric pain; I50.9 Heart failure, unspecified; K21.9 Gastro-esophageal reflux disease without esophagitis; E78.00 Pure hypercholesterolemia, unspecified; Z88.6 Allergy status to analgesic agent; Z88.1 Allergy status to other antibiotic agents; Z88.8 Allergy status to other drugs, medicaments and biological substances; Z79.899 Other long term (current) drug therapy
CPT/HCPCS: 36415; 71045; 80053; 83880; 84484; 85025; 86140; 96374; 99285; J3490

== ENCOUNTER 2023-08-16 18:41 | Emergency (ER) | payer MEDICARE, BC, MEDICAID ==
[2023-08-16] MEDS ORDERED: Sodium Chloride 0.9% 10 ML Syringe FLUSH PRN (18:55)
[2023-08-16 18:59] LABS: BASOPHILS ABSOLUTE AUTO 0.02 10^3/uL (0.00-0.10); BASOPHILS PERCENT AUTO 0.3 % (0.0-1.0); EOSINOPHILS ABSOLUTE AUTO 0.16 10^3/uL (0.10-0.30); EOSINOPHILS PERCENT AUTO 2.7 % (1.0-3.0); HEMATOCRIT 40.2 % (37.0-47.0); HEMOGLOBIN 12.5 g/dL (12.0-16.0); IMMATURE GRAN ABSOLUTE AUTO 0.01 10^3/uL (0.00-0.50); IMMATURE GRAN PERCENT AUTO 0.2 % (0.0-5.0); LYMPHOCYTES ABSOLUTE AUTO 1.63 10^3/uL (1.00-4.00); LYMPHOCYTES PERCENT AUTO 27.9 % (20.0-40.0); MEAN CORPUSCULAR HEMOGLOBIN 26.4 pg (27.0-31.0); MEAN CORPUSCULAR HGB CONC 31.1 g/dL (32.0-36.0); MEAN PLATELET VOLUME 10.3 fL (7.4-10.4); MONOCYTES ABSOLUTE AUTO 0.55 10^3/uL (0.10-0.80); MONOCYTES PERCENT AUTO 9.4 % (2.0-8.0); NEUTROPHILS ABSOLUTE AUTO 3.47 10^3/uL (2.50-7.00); NEUTROPHILS PERCENT AUTO 59.5 % (50.0-70.0); PLATELET COUNT,PLT 232 10^3/uL (150-400); RED BLOOD CELL COUNT 4.73 10^6/uL (3.80-5.50); RED CELL DISTRIBUTION WIDTH 16.1 % (11.5-14.5); WHITE BLOOD CELL COUNT,WBC 5.84 10^3/uL (5.00-10.00)
[2023-08-16 19:14] LABS: ALANINE AMINOTRANSFERASE,ALT 27 U/L (14-63); ALBUMIN 3.86 g/dL (3.40-5.00); ALKALINE PHOSPHATASE 91 U/L (46-116); ANION GAP 11.7 mmol/L (5-15); ASPARTATE AMNIOTRANSFERASE,AST 12 U/L (15-37); B-TYPE NATRIURETIC PEPTIDE,BNP 128 pg/mL (0-100); BILIRUBIN TOTAL 0.2 mg/dL (0.2-1.0); BLOOD UREA NITROGEN,BUN 20 mg/dL (7-18); CALCIUM 9.2 mg/dL (8.7-10.3); CARBON DIOXIDE,CO2 29.1 mmol/L (21.0-32.0); CHLORIDE,CL 103 mmol/L (98-107); EST CRCL DRUG DOSING (CG) 33.58 mL/min; GLUCOSE RANDOM 134 mg/dL (70-140); POTASSIUM,K 3.8 mmol/L (3.5-5.1); PROTEIN TOTAL,TP 7.1 g/dL (6.4-8.2); SODIUM,NA 140 mmol/L (136-145)
[2023-08-16 19:16] LABS: C-REACTIVE PROTEIN < 0.4 mg/dL (0.0-0.9); ESTIMATED GFR 54 mL/min (>=60)
[2023-08-16 21:13] VITALS: BP 145/86; PULSE 88
== END 2023-08-16 20:35 | disposition home or self-care (01) ==
LOC: KA.ED 18:41
DX: R07.9 Chest pain, unspecified (principal); Z95.0 Presence of cardiac pacemaker; K21.9 Gastro-esophageal reflux disease without esophagitis; E78.00 Pure hypercholesterolemia, unspecified; Z88.2 Allergy status to sulfonamides; Z88.8 Allergy status to other drugs, medicaments and biological substances; Z79.899 Other long term (current) drug therapy
CPT/HCPCS: 71045; 80053; 83880; 84484; 85025; 86140; 93010; 99284; 99285

== ENCOUNTER 2024-06-04 17:03 | Emergency (ER) | payer MEDICARE, BC ==
[2024-06-04 17:29] LABS: BASOPHILS ABSOLUTE AUTO 0.02 10^3/uL (0.00-0.10); BASOPHILS PERCENT AUTO 0.3 % (0.0-1.0); EOSINOPHILS ABSOLUTE AUTO 0.19 10^3/uL (0.10-0.30); EOSINOPHILS PERCENT AUTO 3.3 % (1.0-3.0); HEMATOCRIT 41.3 % (37.0-47.0); HEMOGLOBIN 13.1 g/dL (12.0-16.0); IMMATURE GRAN ABSOLUTE AUTO 0.01 10^3/uL (0.00-0.50); IMMATURE GRAN PERCENT AUTO 0.2 % (0.0-5.0); LYMPHOCYTES ABSOLUTE AUTO 1.29 10^3/uL (1.00-4.00); LYMPHOCYTES PERCENT AUTO 22.1 % (20.0-40.0); MEAN CORPUSCULAR HEMOGLOBIN 27.7 pg (27.0-31.0); MEAN CORPUSCULAR HGB CONC 31.7 g/dL (32.0-36.0); MEAN CORPUSCULAR VOLUME 87.3 fL (82.0-92.0); MEAN PLATELET VOLUME 9.7 fL (7.4-10.4); MONOCYTES PERCENT AUTO 8.6 % (2.0-8.0); NEUTROPHILS ABSOLUTE AUTO 3.82 10^3/uL (2.50-7.00); NEUTROPHILS PERCENT AUTO 65.5 % (50.0-70.0); PLATELET COUNT,PLT 218 10^3/uL (150-400); RED BLOOD CELL COUNT 4.73 10^6/uL (3.80-5.50); RED CELL DISTRIBUTION WIDTH 14.5 % (11.5-14.5); WHITE BLOOD CELL COUNT,WBC 5.83 10^3/uL (5.00-10.00)
[2024-06-04 17:34] VITALS: BP 119/86; PULSE 71
[2024-06-04 17:47] LABS: ANION GAP 10.2 mmol/L (5-15); CALCIUM 9.7 mg/dL (8.7-10.3); CARBON DIOXIDE,CO2 30.9 mmol/L (21.0-32.0); CREATININE 1.01 mg/dL (0.51-1.17); EST CRCL DRUG DOSING (CG) 40.56 mL/min; POTASSIUM,K 4.1 mmol/L (3.5-5.1)
== END 2024-06-04 19:18 ==
LOC: KA.ED 17:03
DX: R07.89 Other chest pain (principal); I50.9 Heart failure, unspecified; E78.00 Pure hypercholesterolemia, unspecified; K21.9 Gastro-esophageal reflux disease without esophagitis; Z95.0 Presence of cardiac pacemaker; Z79.899 Other long term (current) drug therapy; Z79.1 Long term (current) use of non-steroidal anti-inflammatories (NSAID); Z79.01 Long term (current) use of anticoagulants; Z88.5 Allergy status to narcotic agent; Z88.2 Allergy status to sulfonamides; Z88.0 Allergy status to penicillin; Z88.6 Allergy status to analgesic agent; Z88.8 Allergy status to other drugs, medicaments and biological substances
CPT/HCPCS: 36415; 71101-LT; 80048; 84484; 85025; 93005; 93010; 99284; 99285